=== PATIENT | female | born 1930 | race Caucasian/White ===

== ENCOUNTER 2016-05-15 10:54 | Inpatient (IN) | payer OTHER, MEDICARE ==
[~2016-05-15] VITALS: Ht 149.9 cm; Wt 54.4 kg
--- NOTE | 2016-05-15 11:05 | NUR ---
PT JESU FROM HOME STATES SHE WENT OUT TO LUNCH ON TUESDAY AND 45 MINUTES LATER WAS VOMITING AT HOME. PT STATES SINCE THEN SHE HAS BEEN GETTING WEAKER AND THIS MORNING SHE WOKE UP WITH RIGHT ARM PAIN AND LEFT LEG PAIN, PT DENIES INJURY
--- NOTE | 2016-05-15 11:17 | ED GI/GU/ABDOMINAL COMPLAINT ---
History of Present Illness General Chief Complaint: Nausea, Vomiting, Diarrhea Stated Complaint: NV Source: patient, family, old records Exam Limitations: no limitations Vital Signs & Intake/Output Vital Signs & Intake/Output Vital Signs Date Time Temp Pulse Resp B/P Pulse O2 O2 Flow FiO2 Ox Delivery Rate 05/15 1647 99.7 88 20 137/55 05/15 1631 99.7 84 22 126/62 96 Room Air 05/15 1438 100.3 05/15 1437 85 18 112/55 96 05/15 1215 99.6 68 20 124/60 96 Room Air 05/15 1057 99.6 80 18 111/55 95 Room Air Allergies Coded Allergies: amoxicillin (From AUGMENTIN) (UNKNOWN 05/15/16) clavulanic acid (From AUGMENTIN) (UNKNOWN 05/15/16) codeine (STOMACH CRAMPS 05/15/16) erythromycin base (STOMACH CRAMPS 05/15/16) hydrocodone (From VICODIN) (STOMACH CRAMPS 05/15/16) zolpidem (From AMBIEN) (HALLUCINATIONS 05/15/16) Reconcile Medications Aspirin (Ecotrin*) 81 MG TABLET.DR 1 TAB PO DAILY HEART HEALTH (Reported) Atenolol 25 MG TABLET 0.5 TAB PO TID HEART (Reported) Brimonidine Tartrate/Timolol (Combigan Eye Drops) 0.2 %-0.5 % DROPS 1 DROP OP BID EYE (Reported) Donepezil HCl 5 MG TABLET 1 TAB PO QPM DEMENTIA (Reported) Estradiol 0.5 MG TABLET 1 TAB PO Tuesday HORMONE (Reported) Hydrochlorothiazide 25 MG TABLET 1 TAB PO DAILY WATER PILL (Reported) Multivitamin (Daily Multiple Vitamin) 1 EACH TABLET 1 TAB PO DAILY SUPPLEMENT (Reported) Potassium Chloride 10 MEQ TAB.ER.PRT 1 TAB PO DAILY SUPPLEMENT (Reported) Prednisolone Acetate 1 % DROPS.SUSP 1 GTT OPH QPM EYE (Reported) Simvastatin (Simvastatin*) 20 MG TABLET 1 TAB PO QPM CHOLESTEROL (Reported) Warfarin Sodium 2 MG TABLET 1 TAB PO 1700 BLOOD THINNER (Reported) Triage Note: PT JESU FROM HOME STATES SHE WENT OUT TO LUNCH ON TUESDAY AND 45 MINUTES LATER WAS VOMITING AT HOME. PT STATES SINCE THEN SHE HAS BEEN GETTING WEAKER AND THIS MORNING SHE WOKE UP WITH RIGHT ARM PAIN AND LEFT LEG PAIN, PT DENIES INJURY Triage Nurses Notes Reviewed? yes ? N Is pt currently ? No HPI: Patient states that she went to lunch with her friend on . Shortly after having lunch she was shopping when all of a sudden her hands began to ache. She noticed that both of her hands were white in color. The aching was constant for about 20 minutes. There is no radiation of the pain. There are no aggravating or mitigating factors. The aching in the whiteness both resolved and then she began vomiting. Patient states that she vomited multiple times between night and Tuesday morning. Patient denies any diarrhea. Patient states that since midmorning yesterday her whole body has began to really hurt. Patient states that she cannot move her right arm secondary to the pain. She is also having severe pain in the right elbow and the right hip and her low back and her left ankle. The pain is constant and is diffuse. The pain radiates throughout her entire body. The pain is 10 out of 10. Pain increases with movement. The pain is a throbbing pain. Patient denies any headache or chills. There is been no known trauma. Past History Travel History Traveled to [place] past 21 day No Medical History Any Pertinent Medical History? see below for history EENT: glaucoma Cardiovascular: hypertension, hyperlipidemia, VALVE REPLACEMENT Surgical History Surgical History: non-contributory Psychosocial History What is your primary language Syriac Tobacco Use: Quit >30 days ago ETOH Use: occasional use Illicit Drug Use: denies illicit drug use Family History Hx Contributory? No Review of Systems Review of Systems Constitutional: Reports: see HPI. EENTM: Reports: no symptoms. Respiratory: Reports: no symptoms. Cardiovascular: Reports: no symptoms. GI: Reports: no symptoms. Genitourinary: Reports: no symptoms. Musculoskeletal: Reports: see HPI, back pain, joint pain, muscle pain. Skin: Reports: no symptoms. Neurological/Psychological: Reports: no symptoms. Hematologic/Endocrine: Reports: no symptoms. Immunologic/Allergic: Reports: no symptoms. All Other Systems: Reviewed and Negative Physical Exam Physical Exam General Appearance: well developed/nourished, alert, awake, anxious, moderate distress Head: atraumatic, normal appearance Eyes: Bilateral: PERRL, EOMI. Ears, Nose, Throat, Mouth: hearing grossly normal, DRY MUCOSA Neck: normal inspection, supple, full range of motion Respiratory: normal breath sounds, chest non-tender, no respiratory distress, lungs clear Cardiovascular: regular rate/rhythm, normal peripheral pulses Gastrointestinal: normal bowel sounds, soft, non-tender, no organomegaly Back: normal inspection, normal range of motion Extremities: limited range of motion (SEC TO PAIN), REFLEXES 2+ Neurologic/Psych: awake, alert, oriented x 3, normal mood/affect Skin: intact, normal color, warm/dry Core Measures ACS in differential dx? No Severe Sepsis Present: No Septic Shock Present: No Progress Differential Diagnosis: AMI, UTI/pyelo, SEPSIS, VIRAL SYNDROME Plan of Care: Orders Procedure Date/time Status Regular Diet 05/16 B Active Patient Data 05/15 1709 Active EKG 05/15 1645 Active Saline Lock 05/15 1640 Active Misc Message 05/15 1640 Active ED Holding Orders 05/15 1640 Active Vital Signs 05/15 1640 Active Activity/Ambulation 05/15 1640 Active Code Status 05/15 1640 Active Admit to inpatient 05/15 1638 Active RAPID VIRAL INFLUENZA A 05/15 1637 Active BLOOD CULTURE 05/15 1355 Active URINALYSIS 05/15 1116 Complete TROPONIN LEVEL 05/15 1116 Complete COMPREHENSIVE METABOLIC PANEL 05/15 1116 Complete CREATINE PHOSPHOKINASE 05/15 1116 Complete CBC WITHOUT DIFFERENTIAL 05/15 1116 Complete Current Medications Sig/Lalo Start time Last Medication Dose Stop Time Status Admin Acetaminophen 650 MG ONCE ONE 05/15 1730 UNVr (Tylenol) 05/15 1731 Laboratory Tests 05/15/16 1310: Urine Color YEL, Urine Clarity CLEAR, Urine pH 6.5, Ur Specific [place] 1.010, Urine Protein 30 H, Urine Ketones NEG, Urine Nitrite NEG, Urine Bilirubin NEG, Urine Urobilinogen 0.2, Ur Leukocyte Esterase TRACE H, Ur Microscopic SEDIMENT EXAMINED, Urine RBC 15-25 H, Urine WBC 1-3 H, Ur Epithelial Cells RARE, Urine Mucus RARE, Urine Hemoglobin MOD H, Urine Glucose NEG 05/15/16 1133: Anion Gap 10, Estimated GFR 53 L, BUN/Creatinine Ratio 25.0, Glucose 114 H, Calcium 8.8, Total Bilirubin 0.8, AST 28, ALT 21, Alkaline Phosphatase 80, Creatine Kinase 23 L, Troponin I < 0.01, Total Protein 6.0 L, Albumin 3.4 L, Globulin 2.6, Albumin/Globulin Ratio 1.3, CBC w Diff MAN DIFF ORDERED, RBC 4.25, MCV 87.5, MCH 29.5, RDW 13.5, MPV 8.1, Gran % 92.0 H, Lymphocytes % 1.7 L, Monocytes % 6.3, Eosinophils % 0, Basophils % 0 L, Absolute Granulocytes 16.3 H, Absolute Lymphocytes 0.3 L, Absolute Monocytes 1.1 H, Absolute Eosinophils 0, Absolute Basophils 0, Normocytic RBCs VERIFIED, Normochromic RBCs VERIFIED, PUBS MCHC 33.7 Microbiology 05/15 1439 BLOOD: Blood Culture - RECD 05/15 1420 BLOOD: Blood Culture - RECD Diagnostic Imaging: Viewed by Me: Radiology Read. Discussed w/RAD: Radiology Read. Radiology Impression: PATIENT: BL ALVARADO PRESENT AGE: 85 PATIENT ACCOUNT NO: [id number] : 29 LOCATION: [facility] ORDERING PHYSICIAN: TRAN GIBBONS MD SERVICE DATE: 05/15/16 EXAM TYPE: RAD - XRY-ANKLE 3 OR MORE VIEWS L; XRY-ELBOW 3 OR MORE VIEWS, R; XRY-HIP 2-3 VIEWS, RIGHT; XRY-LUMBOSACRAL SPINE AP & LAT EXAMINATION: XR LUMBOSACRAL SPINE, XR ELBOW, RIGHT XR ANKLE, LEFT CLINICAL INFORMATION: Back pain, right hip pain, right elbow pain, left ankle pain COMPARISON: None. FINDINGS: Lumbar spine: Frontal and lateral views obtained There are 6 lumbar type vertebral bodies. 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 There is narrowing of all lumbar vertebral body levels in addition to associated degenerative changes including endplate sclerosis and small anterior bridging osteophytes. There is significant loss of intervertebral disc space at the L5-L6 level. The vertebral body heights are largely preserved. There is no significant associated spondylolisthesis. Elbow: 4 views of the right elbow are obtained. There is a small anterior joint effusion. No definite fracture or subluxation identified. There is no radiopaque foreign body. No lytic or sclerotic lesion. AP pelvis, 2 views right hip: The femoral heads are normally located within the acetabula. The joint space is preserved. There is minimal subchondral change along the acetabular roof. The sacroiliac joints are symmetric. The ilioischial and iliopectineal lines are preserved. Dedicated views of the right hip demonstrate an intact proximal femur without fracture or subluxation. Degenerative changes noted along the greater trochanter similar to the contralateral side. IMPRESSION: 1. 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 No acute fracture or subluxation. Diffuse moderate degenerative changes involving all levels of the lumbar spine. 2. Small right elbow joint effusion without identified fracture. Dedicated radiographs could be obtained if pain persists in 7-10 days. 3. No acute fracture involving the right hip. 4. Unremarkable pelvic radiograph. DICTATED BY : BELLA SIFUENTES MD DATE/TIME DICTATED:05/15/161351 [employer] SUPERVISOR:CARLA DATE/TIME TRANSCRIBED:05/15/161351 CONFIDENTIAL, DO NOT COPY WITHOUT APPROPRIATE AUTHORIZATION. <Electronically signed in Other Vendor System> SIGNED BY: BELLA SIFUENTES MD 05/15/16 1412, PATIENT: LB ALVARADO PRESENT AGE: 85 PATIENT ACCOUNT NO: [id number] : 29 LOCATION: [facility] ORDERING PHYSICIAN: TRAN GIBBONS MD SERVICE DATE: 05/15/16 EXAM TYPE: RAD - XRY-SHOULDER COMPLETE-RIGHT EXAMINATION: XR SHOULDER, RIGHT CLINICAL INFORMATION: Pain COMPARISON: None TECHNIQUE: 4 views. FINDINGS: There are 2 radiopaque anchors in the humeral head. Cephalad migration of the humeral head, raising concern for rotator cuff compromise. Moderate glenohumeral joint arthritis with joint space loss, inferior spurring. [id number]-rk-[id number] AC joint arthritis. No evidence of acute fracture or dislocation. IMPRESSION: Moderate glenohumeral and [id number] AC joint arthritis. Cephalad positioning of the humeral head raising concern for rotator cuff compromise. No radiographic evidence of acute fracture. DICTATED BY: JIAN MCKEON MD DATE/TIME DICTATED: 05/15/161341 [employer] SUPERVISOR:WHITE DATE/TIME TRANSCRIBED:05/15/161341 CONFIDENTIAL, DO NOT COPY WITHOUT APPROPRIATE AUTHORIZATION. <Electronically signed in Other Vendor System> SIGNED BY: JAIN MCKEON MD 05/15/16 1407 CXR Impression: PATIENT: LB ALVARADO PRESENT AGE: 85 PATIENT ACCOUNT NO: [id number] : 29 LOCATION: [facility] ORDERING PHYSICIAN: TRAN GIBBONS MD SERVICE DATE: 05/15/16 EXAM TYPE: RAD - XRY-CHEST XRAY, PA AND LATERAL EXAMINATION: XR CHEST CLINICAL INFORMATION: Pneumonia, shortness of breath. COMPARISON: None TECHNIQUE: PA and lateral views of the chest were obtained. FINDINGS: The heart is enlarged. Valvular replacements are noted. Sternotomy wires present. There is airspace opacity in the left lung base retrocardiac region, concerning for atelectasis or infiltrate. Suspect small left pleural effusion. No focal consolidation in the right lung. There is mild central vascular prominence without overt pulmonary edema. Degenerative changes in the spine. Partially imaged screws projected over the right humeral head, and possibly the left humeral head as well. IMPRESSION: Cardiomegaly. Left basilar opacity, consider atelectasis, pneumonia or sequela of aspiration. Suspected small left pleural effusion. Mild central vascular prominence. DICTATED BY: JIAN MCKEON MD DATE/TIME DICTATED:05/15/161335 [employer] SUPERVISOR:CARLA DATE/TIME TRANSCRIBED:05/15/161335 CONFIDENTIAL, DO NOT COPY WITHOUT APPROPRIATE AUTHORIZATION. <Electronically signed in Other Vendor System> SIGNED BY: LINDA DAWSON,JIAN 05/15/16 1346 Initial ED EKG: NSR, nonspecific ST T wave chg Comments: Patient given IV Toradol for pain control and she became confused for approximately 20 minutes. Patient was hallucinating and seeing bugs flying around the room. All symptoms resolved quickly. Patient unable to ambulate even with max assist and a walker. Departure Departure Disposition: STILL A PATIENT Condition: Guarded Clinical Impression Primary Impression: Leukocytosis Secondary Impressions: Myalgia Departure Forms: Customer Survey General Discharge Information Admission Note Spoke With: BECKY DAWSON,[facility] Documentation of Exam: Documentation of any treatments & extenuating circumstances including Concerns Regarding Discharge (functional status, medication knowledge or non-compliance, living conditions, etc.) that warrant an admission rather than observation: [ Patient has a low-grade temperature and leukocytosis 17,000 with a left shift. Cultures have been obtained. Influenza swab has been sent. Patient will require IV fluids. Patient is also having diffuse myalgias and unable to ambulate. Patient will need physical therapy evaluation.]
--- NOTE | 2016-05-15 11:37 | NUR ---
IV INITIATED, LABS DRAWN AND SENT. NS INFUSING
[2016-05-15 11:52] LABS: ABSOLUTE BASOPHIL COUNT 0 /CUMM (0.0-0.2); ABSOLUTE EOSINOPHIL COUNT 0 /CUMM (0.0-0.7); ABSOLUTE GRANULOCYTE CT 16.3 /CUMM (1.4-6.5); ABSOLUTE LYMPH COUNT 0.3 /CUMM (1.2-3.4); ABSOLUTE MONOCYTE COUNT 1.1 /CUMM (0.10-0.60); BASOPHIL % 0 % (0.0-2.0); EOSINOPHIL % 0 % (0-5); HEMATOCRIT 37.2 % (37-47); MEAN CORPUSCULAR HGB 29.5 PG (27.0-31.0); MEAN CORPUSCULAR HGB CONC 33.7 G/DL (33.0-37.0); MEAN CORPUSCULAR VOLUME 87.5 FL (81.0-99.0); MEAN PLATELET VOLUME 8.1 FL (7.4-10.4); PLATELET COUNT 143 /CUMM (130-400); RBC DISTRIBUTION WIDTH 13.5 % (11.5-14.5); RED BLOOD CELL CT 4.25 /CUMM (4.20-5.40); WHITE BLOOD CELL COUNT 17.8 /CUMM (4.8-10.8)
--- NOTE | 2016-05-15 12:30 | NUR ---
PT TO XRAY
--- NOTE | 2016-05-15 13:12 | NUR ---
PT ASSISTED TO BEDSIDE COMMODE WITH ASSIST OF 2. URINE SPECIMEN SENT TO LAB
--- NOTE | 2016-05-15 13:30 | NUR ---
PREVIOUS NOTE WRITTEN BY THIS RN
--- NOTE | 2016-05-15 13:48 | RADIOLOGY REPORT ---
EXAMINATION: XR CHEST CLINICAL INFORMATION: Pneumonia, shortness of breath. COMPARISON: None TECHNIQUE: PA and lateral views of the chest were obtained. FINDINGS: The heart is enlarged. Valvular replacements are noted. Sternotomy wires present. There is airspace opacity in the left lung base retrocardiac region, concerning for atelectasis or infiltrate. Suspect small left pleural effusion. No focal consolidation in the right lung. There is mild central vascular prominence without overt pulmonary edema. Degenerative changes in the spine. Partially imaged screws projected over the right humeral head, and possibly the left humeral head as well. IMPRESSION: Cardiomegaly. Left basilar opacity, consider atelectasis, pneumonia or sequela of aspiration. Suspected small left pleural effusion. Mild central vascular prominence.
--- NOTE | 2016-05-15 14:07 | RADIOLOGY REPORT ---
EXAMINATION: XR SHOULDER, RIGHT CLINICAL INFORMATION: Pain COMPARISON: None TECHNIQUE: 4 views. FINDINGS: There are 2 radiopaque anchors in the humeral head. Cephalad migration of the humeral head, raising concern for rotator cuff compromise. Moderate glenohumeral joint arthritis with joint space loss, inferior spurring. Fzbb-ej-xfuuuwjr AC joint arthritis. No evidence of acute fracture or dislocation. IMPRESSION: Moderate glenohumeral and brgr-kr-wasfkbgc AC joint arthritis. Cephalad positioning of the humeral head raising concern for rotator cuff compromise. No radiographic evidence of acute fracture.
--- NOTE | 2016-05-15 14:12 | RADIOLOGY REPORT ---
EXAMINATION: XR LUMBOSACRAL SPINE, XR ELBOW, RIGHT XR ANKLE, LEFT CLINICAL INFORMATION: Back pain, right hip pain, right elbow pain, left ankle pain COMPARISON: None. FINDINGS: Lumbar spine: Frontal and lateral views obtained There are 6 lumbar type vertebral bodies. 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 There is narrowing of all lumbar vertebral body levels in addition to associated degenerative changes including endplate sclerosis and small anterior bridging osteophytes. There is significant loss of intervertebral disc space at the L5-L6 level. The vertebral body heights are largely preserved. There is no significant associated spondylolisthesis. Elbow: 4 views of the right elbow are obtained. There is a small anterior joint effusion. No definite fracture or subluxation identified. There is no radiopaque foreign body. No lytic or sclerotic lesion. AP pelvis, 2 views right hip: The femoral heads are normally located within the acetabula. The joint space is preserved. There is minimal subchondral change along the acetabular roof. The sacroiliac joints are symmetric. The ilioischial and iliopectineal lines are preserved. Dedicated views of the right hip demonstrate an intact proximal femur without fracture or subluxation. Degenerative changes noted along the greater trochanter similar to the contralateral side. IMPRESSION: 1. 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 No acute fracture or subluxation. Diffuse moderate degenerative changes involving all levels of the lumbar spine. 2. Small right elbow joint effusion without identified fracture. Dedicated radiographs could be obtained if pain persists in 7-10 days. 3. No acute fracture involving the right hip. 4. Unremarkable pelvic radiograph.
--- NOTE | 2016-05-15 14:25 | NUR ---
BC X 2 DRAWN AND SENT BY ELSA MST
[2016-05-15] MEDS ORDERED: POTASSIUM CHLO10 ME5 PO (14:26)
[2016-05-15] MEDS ORDERED: HYDROCHLOROTHIA25 M1 PO (14:26)
[2016-05-15] MEDS ORDERED: ASPIRIN EC81 M1 PO (14:27)
[2016-05-15] MEDS ORDERED: WARFARIN SODIUM2 M1 PO (14:28)
[2016-05-15] MEDS ORDERED: SIMVASTATIN20 M2 PO (14:28)
[2016-05-15] MEDS ORDERED: COMBIGAN EYE DRO5 ML OP (14:29)
[2016-05-15] MEDS ORDERED: PREDNISOLONE ACE5 ML OPH (14:29)
[2016-05-15] MEDS ORDERED: DAILY MULTIPLE1 EACH PO (14:29)
[2016-05-15] MEDS ORDERED: DONEPEZIL HCL5 MG PO (14:30)
[2016-05-15] MEDS ORDERED: ATENOLOL25 M1 PO (14:30)
[2016-05-15] MEDS ORDERED: ESTRADIOL0.5 M1 PO (14:31)
--- NOTE | 2016-05-15 14:41 | NUR ---
PT ASSISTED ONTO COMMODE BY ELSA PATEL
--- NOTE | 2016-05-15 14:58 | NUR ---
REPORT TO LAURA ALAMO
--- NOTE | 2016-05-15 15:43 | NUR ---
DIRECTED BY ER MD TO ATTEMPT AMBULATE UPON EVAL OF PATIENT FOUND FOLLOWING; PATIENT REPORTS HAVING HALLUCINATIONS "SEEING PEOPLE " REPORTS STILL HAVING PAIN ,DISCOMFORT IN VARIOUS AREAS OF BODY FAMILY MEMBERS FEEL PATIENT UNABLE TO GO HOME FINDINGS REPORTED TO
--- NOTE | 2016-05-15 16:07 | NUR ---
RE-EVAL BY RONAN DAWSON
--- NOTE | 2016-05-15 16:27 | NUR ---
ATTEMPTED TO AMBULATE PAITEINT W/ WALKER PATIENT REPORTS UNABLE TO BEAR WEIGHT OR STAND ON LEFT ANKEL OSVS LYING HR 82 RR 20 B/P 125/60 SITTING HR 88 RR 22 B/P 137/55
--- NOTE | 2016-05-15 17:46 | NUR ---
FLU SWAB OBTAINED PATIENT C/O FEVRE CHILLS INCONTINENT OF BOWELS TEMP 101.5 GIVEN TYLENOL 650 MG PO
--- NOTE | 2016-05-15 18:08 | NUR ---
PATIENT BEING EVAL BY HOUSE STAFF REMAINS FEBRILE
--- NOTE | 2016-05-15 18:19 | NUR ---
PT GOING TO ROOM 217-1.
--- NOTE | 2016-05-15 18:27 | History & Physical ---
KANIKA ARCINIEGA 05/15/16 1826: General Information and HPI MD Statement: I have seen and personally examined LB POE and documented this H&P. The patient is a 85 year old F who presented with a patient stated chief complaint of nausea and vomiting. Source of Information: patient Exam Limitations: no limitations History of Present Illness: Ms Poe is an active woman, who was known to be in her usual state of health until 2 days ago. She has a past medical history of hypertension, rheumatic heart disease, mitral and aortic valve replacements. She was brought to [facility] with a chief concern of vomiting, and pain in her right upper extremity and left lower extremity x 1 days ago. As per the patient, she had 2 episodes of vomiting (with no blood), approximately an hour after her lunch at a restaurant 1 days ago. He also reports 1 episode of loose stools, nonbloody, not associated with any pain. She felt weak after vomiting, and remained in bed for the whole evening. She did not have any abdominal pain, difficulty urination. Following morning, she complained of fever(temperature was not recorded); pain in her right elbow region and left ankle, severity 6/10, relieved upon rest, with no radiation. No lightheadedness, chest pain, shortness of breath or palpitations. Sees Dr. Suresh (PCP)-[place] and Dr. Sheth ([phone]) Records of the recent echocardiogram are not available. Allergies/Medications Allergies: Coded Allergies: amoxicillin (From AUGMENTIN) (UNKNOWN 05/15/16) clavulanic acid (From AUGMENTIN) (UNKNOWN 05/15/16) codeine (STOMACH CRAMPS 05/15/16) erythromycin base (STOMACH CRAMPS 05/15/16) hydrocodone (From VICODIN) (STOMACH CRAMPS 05/15/16) zolpidem (From AMBIEN) (HALLUCINATIONS 05/15/16) Home Med list Aspirin (Ecotrin*) 81 MG TABLET. 1 TAB PO DAILY HEART HEALTH (Reported) Atenolol 25 MG TABLET 0.5 TAB PO TID HEART (Reported) Brimonidine Tartrate/Timolol (Combigan Eye Drops) 0.2 %-0.5 % DROPS 1 DROP OP BID EYE (Reported) Donepezil HCl 5 MG TABLET 1 TAB PO QPM DEMENTIA (Reported) Estradiol 0.5 MG TABLET 1 TAB PO Tuesday HORMONE (Reported) Hydrochlorothiazide 25 MG TABLET 1 TAB PO DAILY WATER PILL (Reported) Multivitamin (Daily Multiple Vitamin) 1 EACH TABLET 1 TAB PO DAILY SUPPLEMENT (Reported) Potassium Chloride 10 MEQ TAB.ER.PRT 1 TAB PO DAILY SUPPLEMENT (Reported) Prednisolone Acetate 1 % DROPS.SUSP 1 GTT OPH QPM EYE (Reported) Simvastatin (Simvastatin*) 20 MG TABLET 1 TAB PO QPM CHOLESTEROL (Reported) Warfarin Sodium 2 MG TABLET 1 TAB PO 1700 BLOOD THINNER (Reported) Past History Travel History Traveled to [place] past 21 day No Medical History EENT: glaucoma Cardiovascular: hypertension, hyperlipidemia, Mitral valve replacement Aortic valve replacement, Rheumatic heart disease Cancer(s): BASIL CELL CARCINOMA Surgical History Surgical History: non-contributory Past Family/Social History Family History Relations & Conditions if any Relation not specified for: *No pertinent family history Psychosocial History ETOH Use: occasional use Illicit Drug Use: denies illicit drug use Review of Systems Review of Systems Constitutional: Reports: fever, malaise, weakness. Denies: chills, unexplained weight loss. EENTM: Denies: visual changes. Cardiovascular: Denies: chest pain, edema, orthopena, palpitations. Respiratory: Denies: cough, short of breath. GI: Reports: diarrhea, nausea, vomiting. Genitourinary: Denies: dysuria, hesitation. Musculoskeletal: Denies: joint pain. Skin: Denies: change in skin color. Neurological/Psychological: Denies: anxiety. Hematologic/Endocrine: Denies: bruising. Exam & Diagnostic Data Last 24 Hrs of Vital Signs/I&O Vital Signs Date Time Temp Pulse Resp B/P Pulse O2 O2 Flow FiO2 Ox Delivery Rate 05/15 192 99.8 96 18 102/52 94 Room Air 05/15 1827 100.2 96 18 114/56 95 Room Air 05/15 1808 101.3 05/15 1747 101.5 05/15 1647 99.7 88 20 137/55 05/15 1631 99.7 84 22 126/62 96 Room Air 05/15 1438 100.3 05/15 1437 85 18 112/55 96 05/15 1215 99.6 68 20 124/60 96 Room Air 05/15 1057 99.6 80 18 111/55 95 Room Air Intake & Output 05/15 1600 05/15 0800 05/15 0000 Intake Total 1000 Output Total 300 Balance 700 Intake, IV 1000 Output, Urine 300 Patient 126 lb Weight Physical Exam General Appearance Alert, Oriented X3, Cooperative, No Acute Distress Skin No Breakdown HEENT PERRLA, EOMI Neck No JVD, No thryomegaly Lymphatic Cervical nl Cardiovascular Normal S1, Normal S2, systolic murmur radiating to the axilla Lungs Normal Air Movement Abdomen Normal Bowel Sounds, Soft, No Tenderness Neurological Normal Speech, Strength at 5/5 X4 Ext, Normal Tone, Sensation Intact, Cranial Nerves 3-12 NL, Reflexes 2+ Extremities No Cyanosis, No Edema, Normal Pulses Vascular Pulses Symmetrical Body Front and Back (Adult) 1) ankle swelling 2) tenderness 3) corneal transplant irideal deformity Last 24 Hrs of Labs/Cameron: Laboratory Tests 05/15/16 2014: PT 15.2 H, INR 1.45 H 05/15/16 1310: Urine Color YEL, Urine Clarity CLEAR, Urine pH 6.5, Ur Specific [place] 1.010, Urine Protein 30 H, Urine Ketones NEG, Urine Nitrite NEG, Urine Bilirubin NEG, Urine Urobilinogen 0.2, Ur Leukocyte Esterase TRACE H, Ur Microscopic SEDIMENT EXAMINED, Urine RBC 15-25 H, Urine WBC 1-3 H, Ur Epithelial Cells RARE, Urine Mucus RARE, Urine Hemoglobin MOD H, Urine Glucose NEG 05/15/16 1133: Anion Gap 10, Estimated GFR 53 L, BUN/Creatinine Ratio 25.0, Glucose 114 H, Calcium 8.8, Phosphorus 2.7, Magnesium 1.9, Total Bilirubin 0.8, AST 28, ALT 21, Alkaline Phosphatase 80, Creatine Kinase 23 L, Troponin I < 0.01, Total Protein 6.0 L, Albumin 3.4 L, Globulin 2.6, Albumin/Globulin Ratio 1.3, Amylase < 30 L, Lipase 25, 25-OH Vitamin D Total 14.7 L, TSH 0.672, Thyroxine (T4) 7.2, Thyroxine Binding Indx 35.4, CBC w Diff MAN DIFF ORDERED, RBC 4.25, MCV 87.5, MCH 29.5, RDW 13.5, MPV 8.1, Gran % 92.0 H, Lymphocytes % 1.7 L, Monocytes % 6.3, Eosinophils % 0, Basophils % 0 L, Absolute Granulocytes 16.3 H, Absolute Lymphocytes 0.3 L, Absolute Monocytes 1.1 H, Absolute Eosinophils 0, Absolute Basophils 0, Normocytic RBCs VERIFIED, Normochromic RBCs VERIFIED, PUBS MCHC 33.7 Microbiology 05/15 2100 URINE ROUT: Urine Culture - RECD 05/15 1439 BLOOD: Blood Culture - RECD 05/15 1420 BLOOD: Blood Culture - RECD Diagnostic Data EKG Results Heart rate 90, QTc 504 Other Results RAD - XRY-ANKLE 3 OR MORE VIEWS L; XRY-ELBOW 3 OR MORE VIEWS, R; XRY-HIP 2-3 VIEWS, RIGHT; XRY-LUMBOSACRAL SPINE AP & LAT 1. 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 No acute fracture or subluxation. Diffuse moderate degenerative changes involving all levels of the lumbar spine. 2. Small right elbow joint effusion without identified fracture. Dedicated radiographs could be obtained if pain persists in 7-10 days. 3. No acute fracture involving the right hip. 4. Unremarkable pelvic radiograph. Assessment/Plan Assessment: She is an older lady with a past medical history of valve replacement, hypertension is being evaluated for vomiting, diarrhea and pain in multiple joints. At the time of admission, vitals 99.6 (Tmax 101.5), pulse rate 80, respiratory rate 18, blood pressure 111/55, 96% on room air. Lab findings indicated- leukocytosis WBC 17.8.(predominant neutrophilia-92% indicating an acute infection-machine count and not manual differential), hemoglobin 12.5, hematocrit 37.2, platelets 143, electrolytes-sodium 134, potassium 3.2 and chloride 96 (likely due to vomiting and diarrhea), BUN 25, serum creatinine 1.0, BUN/creatinine ratio-elevated (likely from dehydration), UA indicated protein 30 , minimal pyuria WBC 1-3 and trace urine leukocyte esterase positive, urine nitrite negative (no bacteriuria), elevated RBCs 15-25 with moderate hemoglobin. Radiological [id number] of lumbar spine indicated degenerative changes, small elbow joint effusion was seen. Hip joint did not have any fracture. EKG did not reveal any arrhythmias. Below is the problem list and plan: #1 fever, vomiting-appears viral at this point. Noro virus is the usual culprit. Loss of fluid O dehydration with increased BUN/creatinine ratio and loss of electrolytes. Start intravenous fluids normal saline with caution, as per records of her recent echocardiogram are unavailable at this time. Tigan for symptomatic relief. Viral infection leading to dehydration might have resulted in an acute gouty attack. Symptomatic at this time. And, monitor fever closely. Check CBC in the a.m. Replete potassium. Ultrasound abdomen. Meets sirs criteria, with possible source of infection-check lactate. #2 joint pains-could be incidental or associated with viral illness. Check uric acid. Patient has a history of valve replacement (nature of valve material unavailable at this time). Infective endocarditis although not likely in this case need to be ruled out-age group, urinalysis finding with no pyuria and hematuria. Follow-up on blood cultures and urine cultures. Strep and staph are in the differential, empirically. Echocardiogram. Obtain records from the door to door [facility]. Check ESR, CRP. #3 due to prophylaxis-Alps As Ranked By This Provider Problem List: 1. Myalgia 2. Leukocytosis Core Measures/Miscellaneous Acute Coronary Syndrome ACS Diagnosis: No Cerebrovascular Accident CVA/TIA Diagnosis: No Congestive Heart Failure CHF Diagnosis: No Venous Thromboembolism VTE Risk Factors: Acute medical illness, Age > 40 VTE Prophylaxis Ordered Inpt: Mechanical (ALPS/TEDS) No Mech VTE prophylaxis d/t: No contraindications No VTE Pharm Prophylaxis d/t: No contraindications VTE Diagnosis: No VTE Type: NONE VTE Confirmed by (Test): NONE Severe Sepsis Severe Sepsis Present: No Septic Shock Septic Shock Present: No Miscellaneous Documentation Attending Case Discussed With: MARS GRULLON MD Primary Care Physician: NATE DAWSON,MJ CHAUDHARI Patient sees these Specialists Dr. Sheth Level of Patient Care: General Medicine TIN MCARTHUR MD 05/16/16 0023: Resident Review Statement Resident Statement: examined this patient, discussed with chief internal auditor, agreed with chief internal auditor Other Findings: Ms Underwood is a 85 YO F with PMH of HTN, HLD, glaucoma, dementia, rheumatic fever with resultant aortic and mitral valve replacement 2 years ago on coumadin who presents with 2 day history of N/V, fever, diffuse myalgia, pain in the RT elbow and Lt ankle. Symptoms started about 40mins after lunch in a restaurant with friends where she at [facility]. She remembers the food was well cooked near the [place] although she has no recollection of a tick or mosquiti bites. She denies trauma or fall, hx of gout, URI or UTI symptoms but her history may not be reliable due to her dementia. In the ER she was found to have leukocytosis, positive UA, and was unable to bear weight on her ankle. No obvious fracturees on xray, except a small effusion in the Rt elbow. CXR-Cardiomegaly. Left basilar opacity, consider atelectasis, pneumonia or sequela of aspiration. Suspected small left pleural effusion. Mild central vascular prominence Influenza A-negative Assessment 1. Myalgias, gastroenteritis and leukocytosis; possibly of viral Etiology 2. Possible UTI vs Colonization Plan Admit to Gen Med IVF hydration Blood and Urine cultures Repeat Labs in am Daily INR and dose coumadin as needed-Goal 2.5-3.5 due to Mech Valve (she takes Coumadin 2.5mg dly except sundays when she takes 5mg) Give Tigan for Nausea-she has elevated QTC Hold HTNsive meds for now Vitals Q shift Watch off antibiotics today and reasses in am Doppler US of Lt LE to r/o DVT Complete Abd US-r/o pyelonephritis or other intraabdominal process Full Liquid diet and advance as tolerated due to N/V DVT ppx-Alps and Coumadin MARS GRULLON 05/15/16 0107: Attending MD Review Statement Attending Statement Attending MD Statement: examined this patient, discuss w/resident/PA/FURNACE ATTENDANT, agreed w/resident/PA/FURNACE ATTENDANT, discussed with family, reviewed EMR data (avail), reviewed images, amended to note Attending Assessment/Plan: CC : malaise, multiple joint pain PMH : HTN, HLD, mitral and aortic valve replacement on Warfarin Patient presented in ER with several episodes of vomiting followed by generalized malaise and joint pains. Mainly pain was in the right arm, right hip , left ankle. By the time I saw patient, she was feeling much better, not in significant pain. Patient did not have any fever, chills, urinary symptoms, diarrhea, blood in vomiting, LOC at home she endorses some decreased by mouth intake. Vitals: T max 101.3 after coming to ER, HR, RR, BP, O2 saturation in acceptable range. On exam: A O 3, no distress, mildly anxious, neck supple, mucosa dry, no lymphadenopathy. CVS: S1-S2, systolic murmur and parasternal area, RS: Clear air entry bilaterally present. Abdomen: Soft, NT, ND, Walker's sign negative, no CVA tenderness, bowel sounds present. No obvious skin rashes or inflammation, no obvious decreased motion in any of the joints. No focal neurological deficit. Labs: WBC 17.8, neutrophils 92%, hemoglobin 12.5, potassium 3.2, anion gap 10, CK 23, otherwise CBC, BMP, LFT unremarkable. UA positive for leukocyte esterase. X-ray shoulder, x-ray lumbar spine, x-ray hip, x-ray elbow, x-ray ankle, x-ray chest was obtained: Moderate glenohumeral and [id number] AC joint arthrit is. 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 No acute fracture or subluxation. Diffuse moderate degenerative changes involving all levels of the lumbar spine. Small right elbow joint effusion without identified fracture. Dedicated radiographs could be obtained if pain persists in 7-10 days. No acute fracture involving the right hip. Unremarkable pelvic radiograph. Cardiomegaly. Left basilar opacity, consider atelectasis, pneumonia or sequela of aspiration. Suspected small left pleural effusion. A&P #1 recurrent vomiting and malaise: Can be secondary to viral gastroenteritis, patient feels better after IV hydration, continue NS at 75 -100 mL per hour, conservative management, check magnesium, phosphorus, flu test, lipase, complete abdominal ultrasound to rule out gallbladder and renal pathology. Replace potassium #2 multiple joint pains: X-ray did not show any significant findings, arthralgias can be secondary to dehydration. Pain management, conservative treatment. #3 patient has significant leukocytosis: This can be reactive, patient has leukocyte estrace and UA but she does not have urinary complaints, obtain blood culture, urine culture, Hold off antibiotics for now. His patient spikes fever again at that time, I suggest to start ceftriaxone. #4 HTN: Hold her home medications, given severe dehydration #5 check INR as patient is on warfarin for valve replacement, dose accordingly. #6 patient had an episode of delirium in ER after a dose of Toradol, patient is on donepezil, unclear history of dementia. Watch for hospital-acquired delirium.
--- NOTE | 2016-05-15 18:46 | NUR ---
REPORT GIVEN TO FLOOR
[2016-05-15 19:25] VITALS: BP 102/52
[2016-05-15 20:56] LABS: PT 15.2 SEC (9.4-12.5)
[2016-05-15 23:53] VITALS: BP 104/52
--- NOTE | 2016-05-16 01:10 | Admission Certification ---
Admission Certification Certification Statement - As attending physician, I certify that at the time of - admission, based on clinical presentation, severity of - symptoms, need for further diagnostic testing and - therapeutic interventions, and risk of adverse outcomes - without in-hospital treatment, in my clinical assessment, - this patient requires an acute hospital stay for a minimum - of two nights or longer. I have also considered psychsocial - factors such as support system, advanced age, financial - issues, cognitive issues, and failed out-patient treatments, - past re-admission history, safety of patient, and lack of - compliance as applicable. Specific rationale supporting this admission is: Severe dehydration, viral gastroenteritis, myalgia, arthralgia
[2016-05-16 03:04] VITALS: BP 160/94
[2016-05-16 03:09] VITALS: BP 137/81
--- NOTE | 2016-05-16 03:15 | NUR ---
PT C/O OF 1 EPISODE OF DIARRHEA. PT ASKED MULTIPLE TIMES IF SHE COULD GET SOMETHING TO HELP HER STOP THE DIARRHEA. PT STARTED HAVING CHILLS AND BEGAN GETTING ANXIOUS. PT HAD 1 EPISODE OF DRY HEAVING. MD MADE AWARE. FULL SET OF VITALS DONE. BP 137/81, HR 110, TEMP 97.7, RR 21, O2 SAT 95% ON RA. MD MADE AWARE AND MEDICATIONS ORDERED. WILL CONTINUE TO MONITOR.
--- NOTE | 2016-05-16 06:54 | PN- Housestaff ---
KANIKA ARCINIEGA 05/16/16 0653: Subjective Follow-up For: 1. vomiting, nausea Subjective: She was comforable this am. She was nauseous overnight. Remained afebrile overnight. VItals were stable. Review of Systems Constitutional: Reports: see HPI. Objective Last 24 Hrs of Vital Signs/I&O Vital Signs Date Time Temp Pulse Resp B/P Pulse O2 O2 Flow FiO2 Ox Delivery Rate 05/16 0309 137/81 05/16 0304 97.7 110 21 160/94 95 Room Air 05/16 0010 104/52 05/15 2353 98.4 92 20 104/52 96 05/15 1925 99.8 96 18 102/52 94 Room Air 05/15 1827 100.2 96 18 114/56 95 Room Air 05/15 1808 101.3 05/15 1747 101.5 05/15 1647 99.7 88 20 137/55 05/15 1631 99.7 84 22 126/62 96 Room Air 05/15 1438 100.3 05/15 1437 85 18 112/55 96 05/15 1215 99.6 68 20 124/60 96 Room Air 05/15 1057 99.6 80 18 111/55 95 Room Air Intake & Output 05/16 0800 05/16 0000 05/15 1600 Intake Total 334 478 6373 Output Total 150 300 Balance 720 5 700 Intake, IV 640 53 9446 Intake, Oral 120 80 Number 3 Bowel Movements Output, Urine 150 300 Patient 125 lb 126 lb Weight Physical Exam General Appearance: No Acute Distress Other Physical Findings: General Exam: AAOx3, No acute distress, Skin: No rashes, no breakdown HEENT: PERRLA, EOMI Neck: Supple, No JVD No cervical lymphadenopathy CVS: Reg Rate, Normal S1,S2, No MGR Resp: Normal air entry, no ronchi/rales Abdomen: Soft, tenderness -ve, Normal Bowel Sounds Neuro: Normal Speech, Strength 5/5 b/l x 4 extremities, Sensation intact, CN III -XII NL, Reflexes 2+ Extremities: No cyanosis, pedal edema, tenderness in ankle joint, limited mobility of right shoulder and right elbow. Current Medications: Current Medications Sig/Lalo Start time Last Medication Dose Route Stop Time Status Admin Acetaminophen 650 MG Q6P PRN 05/15 1815 AC PO Acetaminophen 650 MG ONCE ONE 05/15 1730 DC 05/15 PO 05/15 1731 1747 Acetaminophen 0 .STK-MED ONE 05/15 1723 DC PO Aspirin Buffered 81 MG DAILY 05/16 1000 AC PO Atenolol 12.5 MG TID 05/15 220 AC PO Atorvastatin Calcium 10 MG 1700 05/16 1700 AC PO Bromocriptine 2.5 MG BID 05/15 2200 DC Mesylate PO Donepezil HCl 5 MG QPM 05/15 2200 AC 05/16 PO 0005 Heparin Sodium 5,000 UNIT Q8 05/15 2200 CAN (Porcine) SC Ketorolac 15 MG ONCE ONE 05/15 1430 DC 05/15 Tromethamine IV 05/15 1431 1430 Ketorolac 0 .STK-MED ONE 05/15 1429 DC Tromethamine .ROUTE Melatonin 5 MG ONCE ONE 05/16 0300 DC PO 05/16 0301 Metoprolol Tartrate 0 .STK-MED ONE 05/15 1639 DC PO Metoprolol Tartrate 12.5 MG ONCE ONE 05/15 1615 DC 05/15 PO 05/15 1616 1647 Pantoprazole Sodium 40 MG ONCE ONE 05/16 0315 DC 05/16 IV 05/16 0316 0436 Patient Medication 1 UNIT ONE NR 05/15 2100 DC Teaching ED 05/15 2130 Potassium Chloride 40 MEQ ONCE ONE 05/15 2200 DC 05/15 PO 05/15 220 2108 Potassium Chloride 40 MEQ ONCE ONE 05/15 1830 DC PO 05/15 1831 Prednisolone 1 GTT QPM 05/15 2200 AC 05/16 OPH 0006 Sodium Chloride 1,000 ML .[id number] 05/15 1815 AC 05/15 IV 2108 Sodium Chloride 1,000 ML BOLUS ONE 05/15 1345 DC 05/15 IV 05/15 1444 1343 Sodium Chloride 1,000 ML BOLUS ONE 05/15 1115 DC 05/15 IV 05/15 1214 1136 Timolol Maleate 1 GTT BID 05/15 220 AC 05/15 OPH 2107 Trimethobenzamide HCl 200 MG TID PRN 05/16 0315 AC 05/16 IM 0341 Trimethobenzamide HCl 200 MG TID PRN 05/15 1900 DC IM Last 24 Hrs of Lab/Cameron Results Last 24 Hrs of Labs/Mics: Laboratory Tests 05/15/16 2014: PT 15.2 H, INR 1.45 H 05/15/16 1310: Urine Color YEL, Urine Clarity CLEAR, Urine pH 6.5, Ur Specific [place] 1.010, Urine Protein 30 H, Urine Ketones NEG, Urine Nitrite NEG, Urine Bilirubin NEG, Urine Urobilinogen 0.2, Ur Leukocyte Esterase TRACE H, Ur Microscopic SEDIMENT EXAMINED, Urine RBC 15-25 H, Urine WBC 1-3 H, Ur Epithelial Cells RARE, Urine Mucus RARE, Urine Hemoglobin MOD H, Urine Glucose NEG 05/15/16 1133: Anion Gap 10, Estimated GFR 53 L, BUN/Creatinine Ratio 25.0, Glucose 114 H, Uric Acid 6.9 H, Calcium 8.8, Phosphorus 2.7, Magnesium 1.9, Total Bilirubin 0.8, AST 28, ALT 21, Alkaline Phosphatase 80, Creatine Kinase 23 L, Troponin I < 0.01, Total Protein 6.0 L, Albumin 3.4 L, Globulin 2.6, Albumin/Globulin Ratio 1.3, Amylase < 30 L, Lipase 25, 25-OH Vitamin D Total 14.7 L, TSH 0.672, Thyroxine (T4) 7.2, Thyroxine Binding Indx 35.4, CBC w Diff MAN DIFF ORDERED, RBC 4.25, MCV 87.5, MCH 29.5, RDW 13.5, MPV 8.1, Gran % 92.0 H, Lymphocytes % 1.7 L, Monocytes % 6.3, Eosinophils % 0, Basophils % 0 L, Absolute Granulocytes 16.3 H, Absolute Lymphocytes 0.3 L, Absolute Monocytes 1.1 H, Absolute Eosinophils 0, Absolute Basophils 0, Normocytic RBCs VERIFIED, Normochromic RBCs VERIFIED, PUBS MCHC 33.7, ESR Westergren 43 H, FROYLAN Titer Pending, Anti-Nuclear Antibody Pending Microbiology 05/15 2099 URINE ROUT: Legionella Antigen - RES 05/15 2099 URINE ROUT: Streptococcus pneumoniae Antigen (M - RES 05/15 2099 URINE ROUT: Urine Culture - RES 05/15 1439 BLOOD: Blood Culture - RECD 05/15 1420 BLOOD: Blood Culture - RECD Assessment/Plan Assessment: Ms Poe is an active woman who has a past medical history of hypertension, rheumatic heart disease, mitral and aortic valve replacements, and is being evaluted for vomiting, and pain in her right upper extremity and left lower extremity x 1 days ago. At the time of admission, vitals 99.6 (Tmax 101.5), pulse rate 80, respiratory rate 18, blood pressure 111/55, 96% on room air. Lab findings indicated- leukocytosis WBC 17.8.(predominant neutrophilia-92% indicating an acute infection-machine count and not manual differential), hemoglobin 12.5, hematocrit 37.2, platelets 143, electrolytes-sodium 134, potassium 3.2 and chloride 96 (likely due to vomiting and diarrhea), BUN 25, serum creatinine 1.0, BUN/creatinine ratio-elevated (likely from dehydration), UA indicated protein 30 , minimal pyuria WBC 1-3 and trace urine leukocyte esterase positive, urine nitrite negative (no bacteriuria), elevated RBCs 15-25 with moderate hemoglobin. BC x 2- GPC in chains and clusters 05/17/16. Radiological [id number] of lumbar spine indicated degenerative changes, small elbow joint effusion was seen. Hip joint did not have any fracture. EKG did not reveal any arrhythmias. Below is the problem list and plan: #1 fever, vomiting-Continue intravenous fluids normal saline with caution, as per records of her recent echocardiogram are unavailable at this time. Tigan for symptomatic relief. And, monitor fever closely. Check CBC in the a.m. Replete potassium. Ultrasound abdomen reveals ascitic fluid. May consider CT scan abdomen in the am. Lactate 1.9 #2 joint pains- Patient has a history of valve replacement (nature of valve material unavailable at this time, likely prostetic- dose coumadin to keep it in between 2.5-3.). Infective endocarditis is a likely dignosis in this pt-age group, urinalysis finding with no pyuria and hematuria(kidney involement), and ? septic joints. Strep and staph are in the differential, empirically. Start vancomycin pending cultures. Echocardiogram. Obtain records from the research professor of biostatistics. #3 due to prophylaxis-Alps Problem List: 1. Myalgia Pain Ratin Pain Location: left shoulder Pain Goal: Pain 4 or less Pain Plan: tylenol Tomorrow's Labs & Rationales: cbc bep inr GODWIN SHEETS MD 05/16/16 1601: Attending MD Review Statement Attending Statement Attending MD Statement: examined this patient, discuss w/resident/PA/DIRECTOR OF FOOD AND NUTRITION, agreed w/resident/PA/DIRECTOR OF FOOD AND NUTRITION, reviewed EMR data (avail) Attending Assessment/Plan: 85F PMH HTN, rheumatic heart disease s/p AVR and MVR admitted with right shoulder and left ankle pain, nausea, vomiting, malaise, and generalized weakness. Found to have positive blood cultures this morning with gram positive cocci. No recent dental surgery, no trauma, no rash. Denies chest pain, palpitations, SOB, abdominal pain, dysuria. Febrile to 101.3, WBC 18,000, K 3.2 , ESR 43. Mild tenderness to right elbow with mild effusion, shoulder not tender, mild tenderness to left ankle. Imaging shows effusion in right elbow and left ankle without fracture. Plan - Start Vancomycin - Follow blood cultures, repeat if febrile - Follow ID and orthopedic recommendations - Obtain TTE, if negative obtain TREVOR - Continue home medications - Stop Coumadin in case arthrocentesis is required. Start Lovenox
[2016-05-16 08:13] VITALS: BP 150/72
[2016-05-16 08:56] LABS: PT 14.2 SEC (9.4-12.5)
--- NOTE | 2016-05-16 09:58 | Cons- Infect Disease ---
General Information and HPI Consulting Request Date of Consult: 05/16/16 Requested By: MARS GRULLON MD Reason for Consult: Positive blood cultures for gram-positive cocci in pairs and chains Source of Information: patient History of Present Illness: This is an 85-year-old woman status post mitral and aortic valve replacements 2 years prior to admission for rheumatic heart disease, maintained on Coumadin, admitted on May 15 with several days of generalized weakness and right elbow and left ankle pain, with no trauma, following an episode of vomiting, with no documented fevers. On admission she was initially afebrile but, after several hours, spiked to 101.5. Laboratory data revealed a white blood cell count of 18 ,000, BUN/creatinine 25 and 1.0, potassium 3.2, amylase/lipase normal, with normal liver enzymes, INR 1.45. Urinalysis 15-25 RBC/1-3 WBCs. Chest x-ray revealed cardiomegaly with a left basilar opacity. X-ray of the right shoulder revealed moderate glenohumeral and mild to moderate AC joint arthritis. X-ray of the right elbow revealed a small anterior joint effusion. X-ray of the pelvis and right hip reveal degenerative changes. X-ray of the lumbar spine revealed diffuse moderate degenerative changes. She was followed off antibiotics, and temperatures have remained normal overnight. This morning blood cultures 2 were reported positive for gram-positive cocci in pairs and chains. She continues to report pain in the right elbow, right shoulder and left ankle. She reports feeling well prior to the onset of her recent symptoms. She has no ill contacts. Her last dental work was approximately 2 months prior to admission, prior to which she states she took an antibiotic, though she is not sure which one. Allergies/Medications Allergies: Coded Allergies: amoxicillin (From AUGMENTIN) (UNKNOWN 05/15/16) clavulanic acid (From AUGMENTIN) (UNKNOWN 05/15/16) codeine (STOMACH CRAMPS 05/15/16) erythromycin base (STOMACH CRAMPS 05/15/16) hydrocodone (From VICODIN) (STOMACH CRAMPS 05/15/16) zolpidem (From AMBIEN) (HALLUCINATIONS 05/15/16) Home Med List: Aspirin (Ecotrin*) 81 MG TABLET.DR 1 TAB PO DAILY HEART HEALTH (Reported) Atenolol 25 MG TABLET 0.5 TAB PO TID HEART (Reported) Brimonidine Tartrate/Timolol (Combigan Eye Drops) 0.2 %-0.5 % DROPS 1 DROP OP BID EYE (Reported) Donepezil HCl 5 MG TABLET 1 TAB PO QPM DEMENTIA (Reported) Estradiol 0.5 MG TABLET 1 TAB PO Tuesday HORMONE (Reported) Hydrochlorothiazide 25 MG TABLET 1 TAB PO DAILY WATER PILL (Reported) Multivitamin (Daily Multiple Vitamin) 1 EACH TABLET 1 TAB PO DAILY SUPPLEMENT (Reported) Potassium Chloride 10 MEQ TAB.ER.PRT 1 TAB PO DAILY SUPPLEMENT (Reported) Prednisolone Acetate 1 % DROPS.SUSP 1 GTT OPH QPM EYE (Reported) Simvastatin (Simvastatin*) 20 MG TABLET 1 TAB PO QPM CHOLESTEROL (Reported) Warfarin Sodium 2 MG TABLET 1 TAB PO 1700 BLOOD THINNER (Reported) Past History Travel History Traveled to [place] past 21 day No Medical History Blood Transfusion Hx: No Neurological: HALLUCINATIONS EENT: glaucoma Cardiovascular: hypertension, hyperlipidemia, Rheumatic heart disease Respiratory: NONE Gastrointestinal: NONE Hepatic: NONE Renal: NONE Musculoskeletal: NONE Psychiatric: NONE Endocrine: NONE Blood Disorders: NONE Cancer(s): basal cell carcinoma B[employer]ING C[employer] MANAGER/Reproductive: NONE History of MRSA: No History of VRE: No History of CDIFF: No Isolation History: Standard Influenza Vaccine: 02/20/16 Surgical History Surgical History: cataract removal, status post mitral valve replacement 2 years prior to admission, status post aortic valve replacement 2 years prior to admission Family History Relations & Conditions If Any: Relation not specified for: *No pertinent family history Psychosocial History Where Do You Live? Home Services at Home: None Smoking Status: Former Smoker ETOH Use: occasional use Illicit Drug Use: denies illicit drug use Review of Systems Review of Systems Constitutional: Denies: fever. Cardiovascular: Denies: chest pain. Respiratory: Denies: cough, short of breath. GI: Reports: diarrhea. Denies: abdominal pain. Genitourinary: Reports: no symptoms. All Other Systems: Reviewed and Negative Exam & Diagnostic Data Last 24 Hrs of Vital Signs/I&O Vital Signs Date Time Temp Pulse Resp B/P Pulse O2 O2 Flow FiO2 Ox Delivery Rate 05/16 0813 99.8 94 20 150/72 96 Room Air 05/16 0309 137/81 05/16 0304 97.7 110 21 160/94 95 Room Air 05/16 0010 104/52 05/15 2353 98.4 92 20 104/52 96 05/15 1925 99.8 96 18 102/52 94 Room Air 05/15 1827 100.2 96 18 114/56 95 Room Air 05/15 1808 101.3 05/15 1747 101.5 05/15 1647 99.7 88 20 137/55 05/15 1631 99.7 84 22 126/62 96 Room Air 05/15 1438 100.3 05/15 1437 85 18 112/55 96 05/15 1215 99.6 68 20 124/60 96 Room Air 05/15 1057 99.6 80 18 111/55 95 Room Air Intake & Output 05/16 1600 05/16 0800 05/16 0000 Intake Total 720 155 Output Total 150 Balance 720 5 Intake, IV 600 75 Intake, Oral 120 80 Number 3 Bowel Movements Output, Urine 150 Patient 125 lb Weight Physical Exam Other Physical Findings: She is awake and alert in no acute distress. MAXIMUM TEMPERATURE 101.5. Skin reveals no rash. HEENT exam is negative, with no conjunctival petechiae. Neck is supple with no adenopathy. Lungs are clear. Heart regular rhythm with a 1/6 systolic ejection murmur. Abdomen is soft, nontender with positive bowel sounds. Back no CVA tenderness. Extremities tender on movement of the left ankle, with no erythema or obvious effusion; tender on palpation of the right elbow, with good range of motion and without erythema or obvious swelling; tender over the right AC joint, with slight swelling and with pain on movement, without erythema; no cyanosis, clubbing or edema. Neuro is without focality. Last 24 Hours of Lab Results: Laboratory Tests 05/16 1637 Chemistry Sodium (137 - 145 mmol/L) 136 L Potassium (3.5 - 5.1 mmol/L) 3.3 L Chloride (98 - 107 mmol/L) 105 Carbon Dioxide (22 - 30 mmol/L) 21 L Anion Gap (5 - 16) 11 BUN (7 - 17 mg/dL) 23 H Creatinine (0.5 - 1.0 mg/dL) 1.0 Estimated GFR (>60 ml/min) 53 L BUN/Creatinine Ratio (7 - 25 %) 23.0 Lactic Acid (0.7 - 2.1 mmol/L) 1.9 Coagulation PT (9.4 - 12.5 SEC) 14.2 H 15.2 H INR (0.90 - 1.19) 1.36 H 1.45 H Hematology CBC w Diff Pending WBC Pending RBC Pending Hgb Pending Hct Pending MCV Pending MCH Pending RDW Pending Plt Count Pending MPV Pending PUBS MCHC Pending Serology Virus Culture Pending 05/15 1310 Urines Urine Color (YEL,AMB,STR) YEL Urine Clarity (CLEAR) CLEAR Urine pH (5.0 - 8.0) 6.5 Ur Specific [place] (1.001 - 1.035) 1.010 Urine Protein (NEG,<30 MG/DL) 30 H Urine Ketones (NEG) NEG Urine Nitrite (NEG) NEG Urine Bilirubin (NEG) NEG Urine Urobilinogen (0.1 - 1.0 EU/dl) 0.2 Ur Leukocyte Esterase (NEG) TRACE H Ur Microscopic SEDIMENT EXAMINED Urine RBC (0 - 5 /HPF) 15-25 H Urine WBC (0 - 2 /HPF) 1-3 H Ur Epithelial Cells (NONE,FEW) RARE Urine Mucus (FEW,NONE) RARE Urine Hemoglobin (NEG) MOD H Urine Glucose (N MG/DL) NEG 05/15 1133 Chemistry Sodium (137 - 145 mmol/L) 134 L Potassium (3.5 - 5.1 mmol/L) 3.2 L Chloride (98 - 107 mmol/L) 96 L Carbon Dioxide (22 - 30 mmol/L) 29 Anion Gap (5 - 16) 10 BUN (7 - 17 mg/dL) 25 H Creatinine (0.5 - 1.0 mg/dL) 1.0 Estimated GFR (>60 ml/min) 53 L BUN/Creatinine Ratio (7 - 25 %) 25.0 Glucose (65 - 99 mg/dL) 114 H Uric Acid (2.5 - 6.2 mg/dL) 6.9 H Calcium (8.4 - 10.2 mg/dL) 8.8 Phosphorus (2.5 - 4.5 mg/dL) 2.7 Magnesium (1.6 - 2.3 mg/dL) 1.9 Total Bilirubin (0.2 - 1.3 mg/dL) 0.8 AST (14 - 36 U/L) 28 ALT (9 - 52 U/L) 21 Alkaline Phosphatase (<127 U/L) 80 Creatine Kinase (30 - 135 U/L) 23 L Troponin I (< 0.11 ng/ml) < 0.01 Total Protein (6.3 - 8.2 g/dL) 6.0 L Albumin (3.5 - 5.0 g/dL) 3.4 L Globulin (1.9 - 4.2 gm/dL) 2.6 Albumin/Globulin Ratio (1.1 - 2.2 %) 1.3 Amylase (30 - 110 U/L) < 30 L Lipase (23 - 300 U/L) 25 25-OH Vitamin D Total (30 - 100 ng/ml) 14.7 L TSH (0.270 - 4.200 uIU/mL) 0.672 Thyroxine (T4) (4.5 - 10.9 ug/dL) 7.2 Thyroxine Binding Indx (23.5 - 40.5 % UPTAKE) 35.4 Hematology CBC w Diff MAN DIFF ORDERED WBC (4.8 - 10.8 /CUMM) 17.8 H RBC (4.20 - 5.40 /CUMM) 4.25 Hgb (12.0 - 16.0 G/DL) 12.5 Hct (37 - 47 %) 37.2 MCV (81.0 - 99.0 FL) 87.5 MCH (27.0 - 31.0 PG) 29.5 RDW (11.5 - 14.5 %) 13.5 Plt Count (130 - 400 /CUMM) 143 MPV (7.4 - 10.4 FL) 8.1 Gran % (42.2 - 75.2 %) 92.0 H Lymphocytes % (20.5 - 51.1 %) 1.7 L Monocytes % (1.7 - 9.3 %) 6.3 Eosinophils % (0 - 5 %) 0 Basophils % (0.0 - 2.0 %) 0 L Absolute Granulocytes (1.4 - 6.5 /CUMM) 16.3 H Absolute Lymphocytes (1.2 - 3.4 /CUMM) 0.3 L Absolute Monocytes (0.10 - 0.60 /CUMM) 1.1 H Absolute Eosinophils (0.0 - 0.7 /CUMM) 0 Absolute Basophils (0.0 - 0.2 /CUMM) 0 Normocytic RBCs VERIFIED Normochromic RBCs VERIFIED PUBS MCHC (33.0 - 37.0 G/DL) 33.7 ESR Westergren (0 - 20 MM) 43 H Immunology FROYLAN Titer Pending Anti-Nuclear Antibody Pending Last 24 Hours of Cameron Results: Blood cultures May 15 positive for gram-positive cocci in pairs and chains Rapid flu swab May 15 negative Urine culture May 15 pending Urine strep pneumo antigen and Legionella antigen May 15 negative Blood cultures May 16 pending Diagnostic Data Recent Imaging Findings: Chest x-ray, personally reviewed, reveals cardiomegaly with a left basilar opacity. X-ray of the right shoulder reveals moderate glenohumeral and mild to moderate AC joint arthritis. X-ray of the right elbow reveals a small anterior joint effusion. X-ray of the pelvis and right hip reveal degenerative changes. X-ray of the lumbar spine reveals diffuse moderate degenerative changes. X-ray of the left ankle no report available, but with no obvious abnormalities Assessment/Plan Assessment/Plan Impression: This is an 85-year-old woman status post mitral and aortic valve replacements 2 years prior to admission, maintained on Coumadin, admitted on May 15 with several days of generalized weakness, arthralgias involving the left ankle, right elbow and right shoulder, and an episode of vomiting, found on admission to be febrile with a leukocytosis and now with blood cultures 2 positive for gram-positive cocci in pairs and chains. Of most concern is the possibility of prosthetic valve endocarditis and she will likely require further evaluation for this. She has no obvious focus of infection, though she did have dental work approximately 2 months prior to admission. Her episode of vomiting could raise concern for an intra-abdominal infection, for example a biliary process, though she has no right upper quadrant tenderness. Her arthralgias could be secondary to underlying endocarditis, with no obvious inflammation to suggest a septic joint. Her penicillin allergy may complicate her treatment and will need to obtain more information regarding this. At this time she will need to be covered empirically, primarily for streptococci, including Enterococcus, pending final cultures. Suggestion: 1. Obtain more information regarding her penicillin allergy and antibiotics she has tolerated from her primary care physician 2. Orthopedic evaluation for her multiple arthralgias 3. Will likely require TREVOR 4. Follow-up final blood cultures 5. Begin Vancomycin 1 g IV every 24 hours pending above Consult Acknowledgment - Thank you for your consult request.
--- NOTE | 2016-05-16 10:02 | ULTRASOUND REPORT ---
EXAMINATION: US TRIPLEX LOWER EXTREMITY, LEFT CLINICAL INFORMATION: Left ankle tenderness, swelling and calor. COMPARISON: None. TECHNIQUE: Color-flow triplex imaging with spectral analysis and compression Doppler were performed on the left lower extremity. FINDINGS: Respiratory variation, normal compression and augmented flow are noted throughout the lower extremity. The visualized common femoral vein, proximal greater saphenous vein, femoral vein, profunda femoral vein, popliteal vein and visualized mid calf venous segments show no evidence of deep venous thrombosis. There is no Chen's cyst. IMPRESSION: Normal triplex scan without evidence of deep venous thrombosis involving the left lower extremity.
--- NOTE | 2016-05-16 10:05 | ULTRASOUND REPORT ---
EXAMINATION: US ABDOMEN COMPLETE CLINICAL INFORMATION: Fever, myalgia and abnormal urinalysis; question hydronephrosis. COMPARISON: None TECHNIQUE: Real-time imaging of the abdominal viscera. FINDINGS: PANCREAS: Normal. ABDOMINAL AORTA: The proximal segment is normal in caliber. INFERIOR VENA CAVA: Visualized portions are normal. LIVER: Normal. The liver demonstrates normal size, contour and echogenicity. No focal lesion or intrahepatic biliary duct dilatation. GALLBLADDER: There is no sonographic Walker's sign. The gallbladder is physiologically distended without evidence of stones, sludge, polyps, wall thickening or pericholecystic fluid. COMMON BILE DUCT: Normal in caliber measuring 0.5 cm in diameter. RIGHT KIDNEY: Normal. No hydronephrosis. No renal calculi or focal parenchymal lesions. The kidney measures 8.9 cm in maximum dimension. LEFT KIDNEY: Normal. No hydronephrosis. No renal calculi or focal parenchymal lesions. The kidney measures 9.8 cm in maximum dimension. SPLEEN: Normal. The spleen measures 7.7 cm in maximum dimension. FREE FLUID: There is mild free fluid in the right upper quadrant and left upper quadrant. There are small bilateral pleural effusions. IMPRESSION: 1. No renal mass, calculus or hydronephrosis is seen bilaterally. 2. There is mild ascites, and small bilateral pleural effusions are seen.
[2016-05-16 10:25] LABS: ABSOLUTE BASOPHIL COUNT 0 /CUMM (0.0-0.2); ABSOLUTE EOSINOPHIL COUNT 0 /CUMM (0.0-0.7); ABSOLUTE LYMPH COUNT 0.2 /CUMM (1.2-3.4); ABSOLUTE MONOCYTE COUNT 0.2 /CUMM (0.10-0.60); BASOPHIL % 0 % (0.0-2.0); EOSINOPHIL % 0 % (0-5); GRANULOCYTE % 96.7 % (42.2-75.2); HEMATOCRIT 33.2 % (37-47); MEAN CORPUSCULAR HGB 29.6 PG (27.0-31.0); MEAN CORPUSCULAR HGB CONC 33.8 G/DL (33.0-37.0); MEAN CORPUSCULAR VOLUME 87.6 FL (81.0-99.0); MEAN PLATELET VOLUME 8.6 FL (7.4-10.4); PLATELET COUNT 125 /CUMM (130-400); RBC DISTRIBUTION WIDTH 13.6 % (11.5-14.5); RED BLOOD CELL CT 3.79 /CUMM (4.20-5.40); WHITE BLOOD CELL COUNT 10.3 /CUMM (4.8-10.8)
--- NOTE | 2016-05-16 15:32 | Cons- Orthopedic ---
General Information and HPI Consulting Request Date of Consult: 05/16/16 Requested By: MARS GRULLON MD Reason for Consult: Multiple joint pain, question septic arthritis Source of Information: patient Exam Limitations: no limitations History of Present Illness: Patient is an 85-year-old female admitted to the medical service yesterday with complaints of multiple joint pains. She denies trauma recently. She denies any fever at home. She had difficulty bearing weight on the left lower extremity and difficulty with any range of motion actively of her right shoulder. She is admitted to the medical service with a white blood count of 17. Blood cultures were positive. Infectious diseases consultation. I am consultED for the possibility and evaluation of possible septic arthritis of multiple joints. Allergies/Medications Allergies: Coded Allergies: amoxicillin (From AUGMENTIN) (UNKNOWN 05/15/16) clavulanic acid (From AUGMENTIN) (UNKNOWN 05/15/16) codeine (STOMACH CRAMPS 05/15/16) erythromycin base (STOMACH CRAMPS 05/15/16) hydrocodone (From VICODIN) (STOMACH CRAMPS 05/15/16) zolpidem (From AMBIEN) (HALLUCINATIONS 05/15/16) Home Med List: Aspirin (Ecotrin*) 81 MG TABLET.DR 1 TAB PO DAILY HEART HEALTH (Reported) Atenolol 25 MG TABLET 0.5 TAB PO TID HEART (Reported) Brimonidine Tartrate/Timolol (Combigan Eye Drops) 0.2 %-0.5 % DROPS 1 DROP OP BID EYE (Reported) Donepezil HCl 5 MG TABLET 1 TAB PO QPM DEMENTIA (Reported) Estradiol 0.5 MG TABLET 1 TAB PO Tuesday HORMONE (Reported) Hydrochlorothiazide 25 MG TABLET 1 TAB PO DAILY WATER PILL (Reported) Multivitamin (Daily Multiple Vitamin) 1 EACH TABLET 1 TAB PO DAILY SUPPLEMENT (Reported) Potassium Chloride 10 MEQ TAB.ER.PRT 1 TAB PO DAILY SUPPLEMENT (Reported) Prednisolone Acetate 1 % DROPS.SUSP 1 GTT OPH QPM EYE (Reported) Simvastatin (Simvastatin*) 20 MG TABLET 1 TAB PO QPM CHOLESTEROL (Reported) Warfarin Sodium 2 MG TABLET 1 TAB PO 1700 BLOOD THINNER (Reported) Current Medications: Current Medications Sig/Lalo Start time Last Medication Dose Route Stop Time Status Admin Acetaminophen 650 MG Q6P PRN 05/15 1815 AC 05/16 PO 1507 Acetaminophen 650 MG ONCE ONE 05/15 1730 DC 05/15 PO 05/15 1731 1747 Acetaminophen 0 .STK-MED ONE 05/15 1723 DC PO Aspirin Buffered 81 MG DAILY 05/16 1000 AC 05/16 PO 1008 Atenolol 12.5 MG TID 05/15 2200 AC 05/16 PO 1008 Atorvastatin Calcium 10 MG 1700 05/16 1700 AC PO Bromocriptine 2.5 MG BID 05/15 2200 DC Mesylate PO Donepezil HCl 5 MG QPM 05/15 2200 AC 05/16 PO 0005 Heparin Sodium 5,000 UNIT Q8 05/15 2200 CAN (Porcine) SC Melatonin 5 MG ONCE ONE 05/16 0300 DC PO 05/16 0301 Metoprolol Tartrate 0 .STK-MED ONE 05/15 1639 DC PO Metoprolol Tartrate 12.5 MG ONCE ONE 05/15 1615 DC 05/15 PO 05/15 1616 1647 Pantoprazole Sodium 40 MG ONCE ONE 05/16 0315 DC 05/16 IV 05/16 0316 0436 Patient Medication 1 UNIT ONE NR 05/15 2100 DC Teaching ED 05/15 2130 Potassium Chloride 40 MEQ ONCE ONE 05/16 1215 DC 05/16 PO 05/16 1216 1408 Potassium Chloride 40 MEQ ONCE ONE 05/16 1130 CAN PO 05/16 1131 Potassium Chloride 40 MEQ ONCE ONE 05/150 DC 05/15 PO 05/15 2201 2108 Potassium Chloride 40 MEQ ONCE ONE 05/15 1830 DC PO 05/15 1831 Prednisolone 1 GTT QPM 05/15 2200 AC 05/16 OPH 0006 Sodium Chloride 1,000 ML .[id number] 05/15 1815 AC 05/16 IV 0754 Timolol Maleate 1 GTT BID 05/15 2200 AC 05/16 OPH 1012 Trimethobenzamide HCl 200 MG TID PRN 05/16 0315 AC 05/16 IM 0341 Trimethobenzamide HCl 200 MG TID PRN 05/15 1900 DC IM Vancomycin HCl 1,000 MG DAILY 05/16 1000 AC 05/16 Dextrose/Water 250 ML IV 1008 Warfarin Sodium 5 MG COUMADIN 1700 ONE 05/16 1700 AC PO 05/16 1701 Past History Medical History Blood Transfusion Hx: No Neurological: HALLUCINATIONS EENT: glaucoma Cardiovascular: hypertension, hyperlipidemia, Rheumatic heart disease Respiratory: NONE Gastrointestinal: NONE Hepatic: NONE Renal: NONE Musculoskeletal: NONE Psychiatric: NONE Endocrine: NONE Blood Disorders: NONE Cancer(s): basal cell carcinoma INSPECTOR FUEL HOSE/Reproductive: NONE Surgical History Pertinent Surgical History: cataract removal, status post mitral valve replacement 2 years prior to admission status post aortic valve replacement 2 years prior to admission Family History Relations & Conditions If Any: Relation not specified for: *No pertinent family history Psychosocial History Where Do You Live? Home Services at Home: None Smoking Status: Former Smoker ETOH Use: occasional use Illicit Drug Use: denies illicit drug use Exam & Diagnostic Data Vital Signs and I&O Vital Signs Date Time Temp Pulse Resp B/P Pulse O2 O2 Flow FiO2 Ox Delivery Rate 05/16 1008 94 150/72 05/16 0813 99.8 94 20 150/72 96 Room Air 05/16 0309 137/81 05/16 0304 97.7 110 21 160/94 95 Room Air 05/16 0010 104/52 05/15 2353 98.4 92 20 104/52 96 05/15 1925 99.8 96 18 102/52 94 Room Air 05/15 1827 100.2 96 18 114/56 95 Room Air 05/15 1808 101.3 05/15 1747 101.5 05/15 1647 99.7 88 20 137/55 05/15 1631 99.7 84 22 126/62 96 Room Air Intake & Output 05/16 1600 05/16 0800 05/16 0000 05/15 1600 05/15 0800 05/15 0000 Intake Total 600 718 770 3170 Output Total 550 150 300 Balance 50 720 5 700 Intake, IV 754 29 5462 Intake, Oral 600 120 80 Number 1 3 Bowel Movements Output, Urine 550 150 300 Patient 125 lb 126 lb Weight On physical exam section the patient awake and alert. She is oriented to person place and time. Head and neck exam reveals extraocular movements intact with pupils equal round reactive. Neck is supple with no JVD. Lungs are clear bilaterally. Cardiovascular exam reveals S1 and S2. Abdomen is round soft nontender. Examination the right shoulder reveals pain with passive and active range of motion of the right glenohumeral joint. The right shoulder is mildly warm to touch. There is no erythema. There is no fluctuance palpable. The right upper extremity has no pain with range of motion of the right a elbow or wrist. The right upper chamois is neurovascular intact. Examination of the left upper extremity reveals no aberrant valgus. Examination of left lower extremity reveals painless range of motion of the hip and knee on the left. She is pain with passive and active range of motion of the left ankle. There is no erythema about the left ankle. There is no fluctuance or swelling about the left ankle. The foot is grossly neurovascularly intact. The right lower extremity is within normal limits. X-rays the right shoulder show previous rotator cuff repair with rotator cuff arthropathy and elevation of the humeral head. X-rays of the right elbow show no evidence of any significant degenerative changes or large effusions. X-rays of the left ankle show no sign of degenerative changes. Assessment/Plan Assessment/Plan 85-year-old female positive blood cultures and multiple joint pain. The patient does have pain with range of motion of the shoulder and ankle. There is mild concern for possibility of septic arthritis of the joints. Consult Acknowledgment - Thank you for your consult request.
[2016-05-16 15:49] VITALS: BP 138/68
[2016-05-16 23:56] VITALS: BP 128/70
--- NOTE | 2016-05-17 07:18 | PN- Housestaff ---
KANIKA ARCINIEGA 05/17/16 0717: Subjective Follow-up For: 1. bacteremia Subjective: The patient was comfortable this morning. She stated that she slept well last night. Still complains of pain in her right upper extremity. MAXIMUM TEMPERATURE 99.8. She is scheduled for possible TREVOR on Tuesday. She was also taken to the IR for shoulder tap. Discussed with Dr. Suresh, who confirmed that the patient received penicillin in the past. Also spoke to Jeison Salgado MD about possibility of intervention in the right shoulder joint. He was of the opinion that, low white count (less than 100,000), makes other differentials likely-inflammatory. At this time no active intervention is required from orthopedic service. Review of Systems Constitutional: Reports: see HPI. Objective Last 24 Hrs of Vital Signs/I&O Vital Signs Date Time Temp Pulse Resp B/P Pulse O2 O2 Flow FiO2 Ox Delivery Rate 05/16 2356 98.8 75 20 128/70 97 Room Air 05/16 2126 74 132/64 05/16 1612 80 138/68 05/16 1549 97.5 80 21 138/68 97 Room Air 05/16 1008 94 150/72 05/16 0813 99.8 94 20 150/72 96 Room Air Intake & Output 05/17 0800 05/17 0000 05/16 1600 Intake Total 840 600 600 Output Total 275 300 550 Balance 565 300 50 Intake, IV 600 Intake, Oral 240 600 600 Number 1 1 Bowel Movements Output, Urine 275 300 550 Physical Exam General Appearance: No Acute Distress Other Physical Findings: General Exam: AAOx3, No acute distress, Skin: No rashes, no breakdown HEENT: PERRLA, EOMI Neck: Supple, No JVD No cervical lymphadenopathy CVS: Reg Rate, Normal S1,S2, No MGR Resp: Normal air entry, no ronchi/rales Abdomen: Soft, No tenderness, Normal Bowel Sounds Neuro: Normal Speech, Strength 5/5 b/l x 4 extremities, Sensation intact, CN III -XII NL, Reflexes 2+ Extremities: No cyanosis, No pedal edema, Swelling and Current Medications: Current Medications Sig/Lalo Start time Last Medication Dose Route Stop Time Status Admin Acetaminophen 650 MG .STK-MED ONE 05/16 1504 DC PO 05/16 1505 Acetaminophen 650 MG Q6P PRN 05/15 1815 AC 05/16 PO 1507 Aspirin Buffered 81 MG DAILY 05/16 1000 AC 05/16 PO 1008 Atenolol 12.5 MG TID 05/15 2200 AC 05/16 PO 2126 Atorvastatin Calcium 10 MG 1700 05/16 1700 AC 05/16 PO 1611 Donepezil HCl 5 MG QPM 05/15 2200 AC 05/16 PO 0005 Enoxaparin Sodium 60 MG AT BEDTIME 05/16 220 AC 05/16 SC 2129 Enoxaparin Sodium 60 MG DAILY 05/16 1553 DC SC Potassium Chloride 40 MEQ ONCE ONE 05/16 1215 DC 05/16 PO 05/16 1216 1408 Potassium Chloride 40 MEQ ONCE ONE 05/16 1130 CAN PO 05/16 1131 Prednisolone 1 GTT QPM 05/15 220 AC 05/16 OPH 2130 Sodium Chloride 1,000 ML .[id number] 05/15 1815 AC 05/16 IV 2130 Timolol Maleate 1 GTT BID 05/15 2200 AC 05/16 OPH 2130 Trimethobenzamide HCl 200 MG TID PRN 05/16 0315 AC 05/16 IM 0341 Vancomycin HCl 1,000 MG DAILY 05/16 1000 AC 05/16 Dextrose/Water 250 ML IV 1008 Warfarin Sodium 5 MG COUMADIN 1700 ONE 05/16 1700 CAN PO 05/16 1701 Last 24 Hrs of Lab/Cameron Results Last 24 Hrs of Labs/Mics: Laboratory Tests 05/16/16 0810: Anion Gap 11, Estimated GFR 53 L, BUN/Creatinine Ratio 23.0, Lactic Acid 1.9, PT 14.2 H, INR 1.36 H, CBC w Diff NO MAN DIFF REQ, RBC 3.79 L, MCV 87.6, MCH 29.6, RDW 13.6, MPV 8.6, Gran % 96.7 H, Lymphocytes % 1.6 L, Monocytes % 1.7, Eosinophils % 0, Basophils % 0 L, Absolute Granulocytes 10.0 H, Absolute Lymphocytes 0.2 L, Absolute Monocytes 0.2, Absolute Eosinophils 0, Absolute Basophils 0, PUBS MCHC 33.8 Microbiology 05/16 0852 STOOL: Clostridium difficile Toxin A & B - COLB 05/16 0840 BLOOD: Blood Culture - RECD 05/16 0835 BLOOD: Blood Culture - RECD Assessment/Plan Assessment: Ms Poe is an active woman who has a past medical history of hypertension, rheumatic heart disease, mitral and aortic valve replacements, and is being evaluted for vomiting, and pain in her right upper extremity and left lower extremity x 1 days ago. BC x 2- GPC in chains and clusters 05/17/16. Previous blood cultures revealed group B streptococcus. Body fluid analysis from right shoulder joint (cyst and no real fluid)-reveal elevated WBC counts in the range of 40,000. No crystals were found. Echocardiogram revealed thickening of bioprosthetic mitral valve. Limited examination. Suggestive of infective endocarditis however TREVOR would be more informative. Below is the problem list and plan: #1 fever, vomiting-Zofran for nausea. Continue to monitor WBC count and serial abdominal exams to be done. If needed may consider a CAT scan abdomen. #2 joint pains- Patient has a history of valve replacement, and infective endocarditis is a possible diagnosis. Also shows septic joint in the right shoulder. Blood cultures revealed group B strep making GI source likely possibility that may have seeded valves. Currently on vancomycin. Use of penicillin or ceftriaxone is unavailable at this time. Can change the antibiotic to clindamycin, or continue vancomycin(defer the decision to the ID) still more information is obtained about penicillin allergy. Transesophageal echocardiogram to be done on Tuesday. Sofia Kirkpatrick MD cardiology advising. #3 due to prophylaxis-Lovenox for DVT prophylaxis and also anti-coagulation for prosthetic valve. Problem List: 1. Leukocytosis 2. Myalgia Pain Ratin Pain Location: Right shoulder joint Pain Goal: Pain 4 or less Pain Plan: Tylenol when necessary Tomorrow's Labs & Rationales: CBC-check for leukocytosis, patient has septic joint BEP to monitor her potassium has been low. GODWIN SHEETS MD 05/17/16 1117: Attending MD Review Statement Attending Statement Attending MD Statement: examined this patient, discuss w/resident/PA/HOSPICE SOCIAL WORKER, agreed w/resident/PA/HOSPICE SOCIAL WORKER, reviewed EMR data (avail) Attending Assessment/Plan: 85F PMH HTN, rheumatic heart disease s/p AVR and MVR admitted with right shoulder and left ankle pain, nausea, vomiting, malaise, and generalized weakness. Found to have positive blood cultures this morning with gram positive cocci. No recent dental surgery, no trauma, no rash. Denies chest pain, palpitations, SOB, abdominal pain, dysuria. Febrile to 101.3, WBC 18,000, K 3.2 , ESR 43. Mild tenderness to right elbow with mild effusion, shoulder not tender, mild tenderness to left ankle. Imaging shows effusion in right elbow and left ankle without fracture. Plan - Start Vancomycin - Follow blood cultures, repeat if febrile - Follow ID and orthopedic recommendations - Obtain TTE, if negative obtain TREVOR - Continue home medications - Stop Coumadin in case arthrocentesis is required. Start Lovenox - Contact patient's PCP to check antibiotic allergies and what she has tolerated before (particulary cephalosporins)
[2016-05-17 08:22] VITALS: BP 138/60
[2016-05-17 09:23] LABS: PT 12.4 SEC (9.4-12.5)
[2016-05-17 09:40] LABS: ABSOLUTE BASOPHIL COUNT 0 /CUMM (0.0-0.2); ABSOLUTE EOSINOPHIL COUNT 0 /CUMM (0.0-0.7); ABSOLUTE GRANULOCYTE CT 9.4 /CUMM (1.4-6.5); ABSOLUTE LYMPH COUNT 0.4 /CUMM (1.2-3.4); ABSOLUTE MONOCYTE COUNT 1.1 /CUMM (0.10-0.60); BASOPHIL % 0 % (0.0-2.0); EOSINOPHIL % 0 % (0-5); HEMATOCRIT 31.2 % (37-47); MEAN CORPUSCULAR HGB 29.5 PG (27.0-31.0); MEAN CORPUSCULAR HGB CONC 33.9 G/DL (33.0-37.0); MEAN CORPUSCULAR VOLUME 86.9 FL (81.0-99.0); MEAN PLATELET VOLUME 8.3 FL (7.4-10.4); PLATELET COUNT 127 /CUMM (130-400); RBC DISTRIBUTION WIDTH 13.6 % (11.5-14.5)
--- NOTE | 2016-05-17 13:28 | ECHOCARDIOGRAM REPORT ---
LB ALVARADO Age: 85 : 1930 Gender: F Exam Date: 05/17/2016 09:39 Exam Location: [address] [place] [address] Ht (in): 59 Wt (lb): 124 BSA: 1.54 BP: / Ordering Physician: KANIKA ARCINIEGA MD Referring Physician: KANIKA ARCINIEGA MD Technologist: Brian Wisdom [facility] Room Number: 217-1 Indications: INFECTIVE ENDOCARDITIS Rhythm: Atrial fibrillation Technical Quality: Fair FINDINGS Left Ventricle Normal size left ventricle. No obvious regional wall motion abnormalities. Normal left ventricular ejection fraction estimated at 55-60%. Abnormal septal motion. Right Ventricle Right ventricular dilatation. Right Atrium Right atrial dilatation. Left Atrium Mild left atrial dilatation. Mitral Valve Normally functioning prosthetic mitral valve. Bioprosthetic mitral valve. Mild prosthetic mitral valve regurgitation. Aortic Valve Aortic valve not well visualized. Tricuspid Valve Tricuspid valve not well visualized, grossly normal. Moderate tricuspid regurgitation. Right ventricular systolic pressure estimated to be elevated at 52 mmHg. Pulmonic Valve Pulmonic valve not well visualized. Mild pulmonic regurgitation. Pericardium No pericardial effusion. Great Vessels Aortic root and proximal ascending aorta not well visualized, grossly normal. CONCLUSIONS 1. This was a technically difficult examination. 2. The aortic valve was not well visualized anatomically. THere is an elevated gradient of 30 mmHg across the valve. If clinically indicated, a TREVOR would allow better assessment of aortic valve structure and function. 3. A bioprosthetic mitral valve is present. Thickening of the bioprosthetic valve leaflets is present. On the apical views, there appears to be prolapse or partial eversion of the leaflets present. The possibility of a vegetation cannot be excluded. Minimal to mild mitral insufficiency appears to be present. Left atrial enlargement is present. 4. There is no significant pericardial fluid present. 5. The left ventricular chamber size and systolic function appear normal. Abnormal septal motion is present. The ejection fraction is normal.. Mobile echoes are noted in the LV cavity which likely represent residual chordal structures. 6. Mild enlargement of the right heart chambers is present with moderate tricuspid insufficiency and pulmonary hypertension with an estimated RV systolic pressure of 52 mmHg. 7. A TREVOR is suggested in this patient to better assess the anatomy of the aortic and mitral valves and to better exclude the possibility of vegetative lesions Sofia Kirkpatrick M.D. (Electronically Signed) Final Date: 17 May 2016 13:27 MEASUREMENTS (Male / Female) Normal Values 2D ECHO LV Diastolic Diameter PLAX 3.6 cm 4.2 - 5.9 / 3.9 - 5.3 cm LV Systolic Diameter PLAX 2.2 cm 2.1 - 4.0 cm LV Fractional Shortening PLAX 38.9 % 25 - 46 % LV Ejection Fraction 2D Teich 70.2 % IVS Diastolic Thickness 1.0 cm LVPW Diastolic Thickness 0.9 cm LV Relative Wall Thickness 0.5 RV Internal Dim ED PLAX 3.0 cm 1.9 - 3.8 cm Aortic Root Diameter 3.1 cm LA Systolic Diameter LX 3.6 cm 3.0 - 4.0 / 2.7 - 3.8 cm Ascending Aorta Diameter 3.3 cm DOPPLER AV Peak Velocity 274.0 cm/s AV Peak Gradient 30.0 mmHg AV Mean Velocity 172.0 cm/s AV Mean Gradient 14.0 mmHg AV Velocity Time Integral 53.0 cm LVOT Peak Velocity 75.2 cm/s LVOT Peak Gradient 2.3 mmHg LVOT Mean Velocity 48.9 cm/s LVOT Mean Gradient 1.0 mmHg LVOT Velocity Time Integral 14.5 cm MV Peak Velocity 185.0 cm/s MV Peak Gradient 13.7 mmHg MV Mean Velocity 89.6 cm/s MV Mean Gradient 5.0 mmHg Mitral E Point Velocity 173.0 cm/s MV PHT Velocity 189.0 cm/s MV Deceleration Clayton 844.0 cm/s MV Pressure Half Time 67.2 ms MV Area PHT 3.3 cm MV Deceleration Time 211.0 ms TR Peak Velocity 338.0 cm/s TR Peak Gradient 45.7 mmHg Right Atrial Pressure 10.0 mmHg Pulmonary Artery Systolic Pressu 55.7 mmHg Right Ventricular Systolic Press 55.7 mmHg PV Peak Velocity 112.0 cm/s PV Peak Gradient 5.0 mmHg PV Mean Velocity 67.7 cm/s PV Mean Gradient 2.0 mmHg PV Velocity Time Integral 21.9 cm LV E' Lateral Velocity 12.1 cm/s Mitral E to LV E' Lateral Ratio 14.3 LV E' Septal Velocity 10.7 cm/s Mitral E to LV E' Septal Ratio 16.2
--- NOTE | 2016-05-17 15:20 | PN- Infect Dx ---
Subjective Subjective: Afebrile. She feels somewhat improved with decreased left ankle and right elbow pain, but she is still unable to raise her right arm secondary to pain in the right shoulder. Objective Last 24 Hrs of Vital Signs/I&O Vital Signs Date Time Temp Pulse Resp B/P Pulse O2 O2 Flow FiO2 Ox Delivery Rate 05/17 1216 140/72 05/17 1151 Room Air 05/17 0822 98.2 92 20 138/60 98 Room Air 05/16 2356 98.8 75 20 128/70 97 Room Air 05/16 2126 74 132/64 05/16 1612 80 138/68 05/16 1549 97.5 80 21 138/68 97 Room Air Intake & Output 05/17 1600 05/17 0800 05/17 0000 Intake Total 1415 840 600 Output Total 700 275 300 Balance 715 565 300 Intake, IV 375 600 Intake, Oral 1040 240 600 Number 0 1 Bowel Movements Output, Urine 700 275 300 Physical Exam Other Physical Findings: She appears comfortable in no acute distress Lungs are clear Heart regular rhythm with a 1/6 systolic ejection murmur Extremities decreased pain on movement of the left ankle and right elbow; right shoulder tender on palpation with mild edema without erythema, but with decreased range of motion; trace edema both lower extremities Results Last 24 Hours of Lab Results: Laboratory Tests 05/17 05/17 1120 0839 Chemistry Sodium (137 - 145 mmol/L) 136 L Potassium (3.5 - 5.1 mmol/L) 3.3 L Chloride (98 - 107 mmol/L) 108 H Carbon Dioxide (22 - 30 mmol/L) 20 L Anion Gap (5 - 16) 7 BUN (7 - 17 mg/dL) 20 H Creatinine (0.5 - 1.0 mg/dL) 0.8 Estimated GFR (>60 ml/min) > 60 BUN/Creatinine Ratio (7 - 25 %) 25.0 Coagulation PT (9.4 - 12.5 SEC) 12.4 INR (0.90 - 1.19) 1.18 Hematology CBC w Diff MAN DIFF ORDERED WBC (4.8 - 10.8 /CUMM) 11.0 H RBC (4.20 - 5.40 /CUMM) 3.60 L Hgb (12.0 - 16.0 G/DL) 10.6 L Hct (37 - 47 %) 31.2 L MCV (81.0 - 99.0 FL) 86.9 MCH (27.0 - 31.0 PG) 29.5 RDW (11.5 - 14.5 %) 13.6 Plt Count (130 - 400 /CUMM) 127 L MPV (7.4 - 10.4 FL) 8.3 Gran % (42.2 - 75.2 %) 86.0 H Lymphocytes % (20.5 - 51.1 %) 4.0 L Monocytes % (1.7 - 9.3 %) 10.0 H Eosinophils % (0 - 5 %) 0 Basophils % (0.0 - 2.0 %) 0 L Absolute Granulocytes (1.4 - 6.5 /CUMM) 9.4 H Absolute Lymphocytes (1.2 - 3.4 /CUMM) 0.4 L Lymphocytes (%) 9 Absolute Monocytes (0.10 - 0.60 /CUMM) 1.1 H Absolute Eosinophils (0.0 - 0.7 /CUMM) 0 Absolute Basophils (0.0 - 0.2 /CUMM) 0 % Normal PMNs (%) 83 Platelet Estimate (ADEQUATE) DECREASED Polychromasia 1+ Poikilocytosis 1+ Ovalocytes 1+ Lawrence Cells 1+ PUBS MCHC (33.0 - 37.0 G/DL) 33.9 Other Body Source Fluid WBC (0 - 5 /CUMM) 27846 H Fld Mesothelial Cells (%) Fld Total RBCs Counted (0 /CUMM) 295321 H Last 24 Hours of Cameron Results: Blood cultures May 15 positive for Goup B strep Blood cultures May 16 positive for gram-positive cocci in chains Urine culture May 15 greater than 100,000 colonies of Group B strep Right shoulder aspirate May 17 pending Recent Imaging Studies: Abdominal ultrasound May 16 mild ascites with small bilateral pleural effusions Left leg Doppler May 16 negative Echocardiogram, technically limited, negative for any obvious vegetations Assessment/Plan Impression: Group B strep sepsis in a patient status post aortic and mitral valve replacements 2 years ago presenting with inflammation of multiple joints, status post aspiration of the right shoulder earlier today, with over 40,000 white blood cells noted on the cell count. This could suggest a septic joint, possibly secondary to her bacteremia rather than representing the initial source , with no history of trauma, but prosthetic valve endocarditis must still be considered and will need to be ruled out. Her temperatures and white blood cell count are decreased on Vancomycin Day 2 of treatment. Suggestion: 1. Obtain more information regarding her penicillin allergy and antibiotics she has tolerated from her primary care physician 2. Follow-up culture of the recent right shoulder aspiration 3. Would pursue a TREVOR 4. Continue Vancomycin pending above
[2016-05-17 16:05] VITALS: BP 152/80
--- NOTE | 2016-05-17 16:48 | INTERVENTIONAL RADIOLOGY RPT ---
EXAMINATION: Fluoroscopic guided aspiration, right shoulder joint CLINICAL INFORMATION: 85-year-old female with shoulder pain and positive blood cultures. Concern for infected right shoulder joint. COMPARISON: Right shoulder radiographs 05/15/2016 TECHNIQUE: Informed consent was obtained from the patient prior to the procedure. During this process, the procedure and potential alternatives were explained along with the intended outcome and benefits. The risks of the procedure including the possibility of an unsuccessful procedure, as well as the risk of not doing the procedure was discussed. The patient was given the opportunity to ask questions regarding the procedure and appeared competent to make decisions. The signed informed consent form was placed in the medical record. A time out procedure was performed. Following informed consent the patient was placed supine on fluoroscopic table. The right shoulder region was prepped and draped in usual sterile fashion. 1% lidocaine was infiltrated into the skin and subcutaneous tissues. A 20-gauge spinal needle was introduced into the right shoulder joint under fluoroscopic guidance. Approximately 1 mL of blood-tinged fluid was aspirated. 1 mL of Optiray 320 contrast was then injected to confirm intra-articular placement. At this time, approximately 4 mL of sterile saline was injected into the joint and reaspirated attempted. Only an additional approximately 1 mL of dilute, blood-tinged fluid was reaspirated. The needle was removed. Good hemostasis was achieved. A sterile dressing was placed. Aspirated fluid sent for requested analysis. The patient tolerated the procedure well and was discharged from the room in good condition and monitored with instructions. No complications. FLUOROSCOPY TIME: 0.5 minutes. IMPRESSION: Successful fluoroscopic guided right shoulder joint aspiration.
--- NOTE | 2016-05-17 19:51 | NUR ---
BP 178/122. 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
[2016-05-17 20:30] VITALS: BP 160/80
[2016-05-17 22:33] VITALS: BP 148/80
[2016-05-18 06:19] VITALS: BP 148/80
[2016-05-18 09:29] LABS: PT 13.6 SEC (9.4-12.5)
[2016-05-18 09:29] LABS: ABSOLUTE BASOPHIL COUNT 0 /CUMM (0.0-0.2); ABSOLUTE EOSINOPHIL COUNT 0 /CUMM (0.0-0.7); ABSOLUTE GRANULOCYTE CT 8.4 /CUMM (1.4-6.5); ABSOLUTE LYMPH COUNT 0.4 /CUMM (1.2-3.4); BASOPHIL % 0 % (0.0-2.0); EOSINOPHIL % 0.2 % (0-5); GRANULOCYTE % 85.6 % (42.2-75.2); HEMATOCRIT 29.8 % (37-47); MEAN CORPUSCULAR HGB 29.4 PG (27.0-31.0); MEAN CORPUSCULAR HGB CONC 33.9 G/DL (33.0-37.0); MEAN CORPUSCULAR VOLUME 86.7 FL (81.0-99.0); MEAN PLATELET VOLUME 8.5 FL (7.4-10.4); PLATELET COUNT 143 /CUMM (130-400); RBC DISTRIBUTION WIDTH 13.9 % (11.5-14.5); RED BLOOD CELL CT 3.44 /CUMM (4.20-5.40); WHITE BLOOD CELL COUNT 9.9 /CUMM (4.8-10.8)
--- NOTE | 2016-05-18 10:52 | PN- Housestaff ---
KANIKA ARCINIEGA 05/18/16 1045: Subjective Follow-up For: 1. Joint pains #2 nausea and vomiting #3 questionable infectious endocarditis Subjective: Ms. Poe is comfortable this morning. She was more comfortable compared to yesterday. Stated that her pain was adequately controlled. She is less short of breath compared to yesterday. In the last 24 hours, she had a diagnostic arthrocentesis (IR guided) done. Change antibiotics from vancomycin to ampicillin after discussing with Jabari Collins MD. Dr. Suresh (PCP) confirmed via the phone that Ms. Poe is not allergic to ampicillin. Discussed with Jeison Salgado MD. Review of Systems Constitutional: Reports: see HPI. Objective Last 24 Hrs of Vital Signs/I&O Vital Signs Date Time Temp Pulse Resp B/P Pulse O2 O2 Flow FiO2 Ox Delivery Rate 05/18 0619 98.9 95 20 148/80 96 Room Air 05/17 2233 98.4 90 20 148/80 97 Room Air 05/17 2030 160/80 05/17 2030 160/80 05/17 1615 93 152/80 05/17 1605 98.2 93 20 152/80 96 05/17 1600 Room Air 05/17 1216 140/72 05/17 1151 Room Air Intake & Output 05/18 1600 05/18 0800 05/18 0000 Intake Total 400 150 Output Total 200 Balance 400 -50 Intake, IV 200 Intake, Oral 200 150 Output, Urine 200 Physical Exam General Appearance: No Acute Distress Other Physical Findings: General Exam: AAOx3, No acute distress, Skin: No rashes, no breakdown HEENT: PERRLA, EOMI Neck: Supple, No JVD No cervical lymphadenopathy CVS: Reg Rate, Normal S1,S2, No MGR Resp: Normal air entry, no ronchi/rales Abdomen: Soft, No tenderness, Normal Bowel Sounds Neuro: Normal Speech, Strength 5/5 b/l x 4 extremities, Sensation intact, CN III -XII NL, Reflexes 2+ Extremities: No cyanosis, no pedal edema, restriction in mobility in left shoulder joint, and elbow joint. Tenderness on lower spine. Current Medications: Current Medications Sig/Lalo Start time Last Medication Dose Route Stop Time Status Admin Acetaminophen 650 MG Q6P PRN 05/15 1815 AC 05/17 PO 0933 Ampicillin 2,000 MG Q8 05/18 0600 AC 05/18 Sodium Chloride 100 ML IV 0457 Aspirin Buffered 81 MG DAILY 05/16 1000 AC 05/18 PO 0903 Atenolol 12.5 MG TID 05/15 220 AC 05/18 PO 0903 Atorvastatin Calcium 10 MG 1700 05/16 1700 AC 05/17 PO 1615 Donepezil HCl 5 MG QPM 05/15 220 AC 05/17 PO 202 Enoxaparin Sodium 60 MG AT BEDTIME 05/16 2199 AC 05/17 SC 2030 Morphine Sulfate 1 MG ONCE ONE 05/18 0130 DC 05/18 IV 05/18 013 0457 Morphine Sulfate 2 MG ONCE ONE 05/17 2014 DC 05/17 IV 05/17 Potassium Chloride 20 MEQ BID 05/18 1000 AC 05/18 PO 0902 Prednisolone 1 GTT QPM 05/15 220 AC 05/17 OPH 2024 Sodium Chloride 0 .STK-MED ONE 05/17 1118 CAN IV Timolol Maleate 1 GTT BID 05/15 2199 AC 05/18 OPH 0903 Trimethobenzamide HCl 200 MG TID PRN 05/16 0315 AC 05/16 IM 0341 Vancomycin HCl 1,000 MG DAILY 05/16 1000 DC 05/17 Dextrose/Water 250 ML IV 0934 Last 24 Hrs of Lab/Cameron Results Last 24 Hrs of Labs/Mics: Laboratory Tests 05/18/16 1025: PT 13.6 H, INR 1.30 H 05/18/16 0845: Anion Gap 8, Estimated GFR > 60, BUN/Creatinine Ratio 20.0, Uric Acid Pending, CBC w Diff MAN DIFF ORDERED, RBC 3.44 L, MCV 86.7, MCH 29.4, RDW 13.9, MPV 8.5, Gran % 85.6 H, Lymphocytes % 4.0 L, Monocytes % 10.2 H, Eosinophils % 0.2, Basophils % 0 L, Absolute Granulocytes 8.4 H, Segmented Neutrophils 78 H, Band Neutrophils 5, Absolute Lymphocytes 0.4 L, Lymphocytes 5 L, Monocytes 12 H, Absolute Monocytes 1.0 H, Absolute Eosinophils 0, Absolute Basophils 0, Platelet Estimate VERIFIED BY SMEAR, Polychromasia 1+, Poikilocytosis 1+, Ovalocytes 1+, Vilma Cells 1+, PUBS MCHC 33.9 05/17/16 1120: Lymphocytes 9, % Normal PMNs 83, Fluid WBC 74213 H, Fld Mesothelial Cells , Fld Total RBCs Counted 340969 H Microbiology 05/17 1120 BODY FLUID: Body Fluid Culture - RECD 05/17 1120 BODY FLUID: Gram Stain - RECD Assessment/Plan Assessment: Ms Poe is an active woman who has a past medical history of hypertension, rheumatic heart disease, mitral and aortic valve replacements, and is being evaluted for vomiting, and pain in her right upper extremity and left lower extremity x 1 days ago. BC x 4-group B streptococcus Urine cultures- revealed group B streptococcus likely hematogenous spread. Body fluid analysis from right shoulder joint (cyst and no real fluid)-reveal elevated WBC counts in the range of 40,000. No crystals were found. Echocardiogram revealed thickening of bioprosthetic mitral valve. Limited examination. Suggestive of infective endocarditis however TREVOR would be more informative. Below is the problem list and plan: #1 fever, vomiting-Zofran for nausea. Continue to monitor WBC count and serial abdominal exams to be done. If needed may consider a CAT scan abdomen. #2 joint pains- Patient has a history of valve replacement, and infective endocarditis is a possible diagnosis. Also shows ? septic joint in the right shoulder. Blood cultures revealed group B strep making GI source likely possibility that may have seeded valves. Currently on ampicillin 2 g IV every 8. Transesophageal echocardiogram to be done on Tuesday. Sofia Kirkpatrick MD cardiology advising. Spinal tenderness in the lower back-to obtain an MRI with gadolinium to rule out any abscess. #3 due to prophylaxis-Lovenox for DVT prophylaxis and also anti-coagulation for ? prosthetic valve. Unsure, if she has any underlying paroxysmal afib that required AC. Requested records from the [employer]. May have to restart coumadin, while she is being bridged w/ lovenox. Problem List: 1. Leukocytosis Pain Ratin Pain Location: Left shoulder and back Pain Goal: Pain 4 or less Pain Plan: Tylenol when necessary Tomorrow's Labs & Rationales: CBC to monitor for leukocytosis BEP check for potassium VONNIE DUMONT 05/26/16 1057: Jazlyn DAWSON Review Statement Attending Statement Attending Statement: examined this patient, discuss w/resident/PA/WOOD CREW SUPERVISOR, agreed w/resident/PA/WO[employer] CREW SUPERVISOR, reviewed EMR data (avail), discussed with nursing, discussed with case mgmt Attending Assessment/Plan: 85F with PMH HTN, rheumatic heart disease s/p AVR and MVR 2 years ago admitted with right shoulder and left ankle pain and lower back pain, nausea, vomiting, malaise, and generalized weakness. Found to have positive blood cultures - Beta strept group B. WBC trending down. Patient being treated as presumed endocarditis. We will get TREVOR done tomorrow. We will also get MRI of the lumbosacral spine done tomorrow. Urine cultures of the patient is also going betastrep group B . Discussed with infectious disease and we will continue with current antibiotics with IV ampicillin which patient is tolerating well. Patient also has history of atrial fibrillation and is currently on Lovenox. We are holding her Coumadin for planned TREVOR tomorrow. The repeat EKG done today shows atrial fibrillation and no widening of QRS interval compared with prior EKG.
--- NOTE | 2016-05-18 11:41 | PN- Infect Dx ---
Subjective Subjective: Afebrile. She feels improved today but still reports pain and limited range of motion of the right shoulder. Objective Last 24 Hrs of Vital Signs/I&O Vital Signs Date Time Temp Pulse Resp B/P Pulse O2 O2 Flow FiO2 Ox Delivery Rate 05/18 0619 98.9 95 20 148/80 96 Room Air 05/17 2233 98.4 90 20 148/80 97 Room Air 05/17 2030 160/80 05/17 2030 160/80 05/17 1615 93 152/80 05/17 1605 98.2 93 20 152/80 96 05/17 1600 Room Air 05/17 1216 140/72 05/17 1151 Room Air Intake & Output 05/18 1600 05/18 0800 05/18 0000 Intake Total 400 150 Output Total 200 Balance 400 -50 Intake, IV 200 Intake, Oral 200 150 Output, Urine 200 Physical Exam Other Physical Findings: She appears comfortable in no acute distress Lungs are clear Heart regular rhythm with a 1/6 soft ejection murmur Extremities decreased range of motion of the right shoulder, with tenderness on palpation Results Last 24 Hours of Lab Results: Laboratory Tests 05/18 05/18 1025 0845 Chemistry Sodium (137 - 145 mmol/L) 137 Potassium (3.5 - 5.1 mmol/L) 3.5 Chloride (98 - 107 mmol/L) 106 Carbon Dioxide (22 - 30 mmol/L) 23 Anion Gap (5 - 16) 8 BUN (7 - 17 mg/dL) 16 Creatinine (0.5 - 1.0 mg/dL) 0.8 Estimated GFR (>60 ml/min) > 60 BUN/Creatinine Ratio (7 - 25 %) 20.0 Uric Acid (2.5 - 6.2 mg/dL) 5.6 C-Reactive Prot, Quant (<1.0 mg/dL) > 9.0 H Coagulation PT (9.4 - 12.5 SEC) 13.6 H INR (0.90 - 1.19) 1.30 H Hematology CBC w Diff MAN DIFF ORDERED WBC (4.8 - 10.8 /CUMM) 9.9 RBC (4.20 - 5.40 /CUMM) 3.44 L Hgb (12.0 - 16.0 G/DL) 10.1 L Hct (37 - 47 %) 29.8 L MCV (81.0 - 99.0 FL) 86.7 MCH (27.0 - 31.0 PG) 29.4 RDW (11.5 - 14.5 %) 13.9 Plt Count (130 - 400 /CUMM) 143 MPV (7.4 - 10.4 FL) 8.5 Gran % (42.2 - 75.2 %) 85.6 H Lymphocytes % (20.5 - 51.1 %) 4.0 L Monocytes % (1.7 - 9.3 %) 10.2 H Eosinophils % (0 - 5 %) 0.2 Basophils % (0.0 - 2.0 %) 0 L Absolute Granulocytes (1.4 - 6.5 /CUMM) 8.4 H Segmented Neutrophils (42.2 - 75.2 %) 78 H Band Neutrophils (0.0 - 5.0 %) 5 Absolute Lymphocytes (1.2 - 3.4 /CUMM) 0.4 L Lymphocytes (20.5 - 51.1 %) 5 L Monocytes (1.7 - 9.3 %) 12 H Absolute Monocytes (0.10 - 0.60 /CUMM) 1.0 H Absolute Eosinophils (0.0 - 0.7 /CUMM) 0 Absolute Basophils (0.0 - 0.2 /CUMM) 0 Platelet Estimate (ADEQUATE) VERIFIED BY SMEAR Polychromasia 1+ Poikilocytosis 1+ Ovalocytes 1+ Vilma Cells 1+ PUBS MCHC (33.0 - 37.0 G/DL) 33.9 Last 24 Hours of Cameron Results: Blood cultures May 16 positive for Group B strep Right shoulder aspiration May 17 negative Assessment/Plan Impression: Group B strep sepsis/possible endocarditis status post aortic and mitral valve replacements 2 years ago, status post aspiration of the right shoulder joint yesterday, with a significant number of white blood cells noted, but with the culture so far negative. This could suggest a septic joint, possibly secondary to her bacteremia, with no history of trauma to implicate this as the primary source, but prosthetic valve endocarditis must still be considered and will need to be ruled out. She was begun on Ampicillin after further history was obtained indicating that she has tolerated Amoxicillin in the past. Suggestion: 1. Repeat blood cultures 2 today 2. Await TREVOR (apparently scheduled for the a.m.) 3. Follow-up the culture of the recent right shoulder aspiration 4. Continue Ampicillin
--- NOTE | 2016-05-18 14:51 | NUR ---
PHYSICAL THERAPY- CONSULT RECEIVED, CHART REVIEWED. PT W/ TREVOR ORDERED TO R/O INFECTIVE ENDOCARDITIS/VEGETATION. WILL DEFER EVAL UNTIL RESULTS OBTAINED. WILL FOLLOW.
--- NOTE | 2016-05-18 15:04 | PN- Att Addend ---
Attending MD Review Statement Attending Statement Attending MD Statement: examined this patient, discuss w/resident/PA/WINTER INTERN, agreed w/resident/PA/WINTER INTERN, reviewed EMR data (avail) Attending Assessment/Plan: 85F with PMH HTN, rheumatic heart disease s/p AVR and MVR 2 years ago admitted with right shoulder and left ankle pain and lower back pain, nausea, vomiting, malaise, and generalized weakness. Found to have positive blood cultures - Beta strept group B. WBC trending down. Patient being treated as presumed endocarditis. We will get TREVOR done tomorrow. We will also get MRI of the lumbosacral spine done tomorrow. Urine cultures of the patient is also going betastrep group B . Discussed with infectious disease and we will continue with current antibiotics with IV ampicillin which patient is tolerating well. Patient also has history of atrial fibrillation and is currently on Lovenox. We are holding her Coumadin for planned TREVOR tomorrow. The repeat EKG done today shows atrial fibrillation and no widening of QRS interval compared with prior EKG.
[2016-05-18 16:06] VITALS: BP 116/72
--- NOTE | 2016-05-18 18:15 | Cons- Cardiology ---
General Information and HPI Consulting Request Date of Consult: 05/18/16 Requested By: GODWIN SHEETS MD Reason for Consult: Possible endocarditis History of Present Illness: The patient is an 85-year-old female with history of bioprosthetic aortic and mitral valve replacements in 2014 for rheumatic heart disease, paroxysmal atrial fibrillation and atrial flutter, anticoagulated on warfarin, hypertension who presented with complaint of generalized weakness, with pain in her right elbow, left ankle, and back. She continues to have her back pain, and is currently uncomfortable. She was noted to spike a fever to 101.5F. She was noted to have elevated white blood count. Her most recent dental work was 2 months ago, and she notes that she took an antibiotic for prophylaxis. No chest pain. No syncope. No lightheadedness or dizziness. No nausea or vomiting. No palpitations. Her trumpet teacher is Dr. Kushal Sheth. Allergies/Medications Allergies: Coded Allergies: amoxicillin (From AUGMENTIN) (UNKNOWN 05/15/16) clavulanic acid (From AUGMENTIN) (UNKNOWN 05/15/16) codeine (STOMACH CRAMPS 05/15/16) erythromycin base (STOMACH CRAMPS 05/15/16) hydrocodone (From VICODIN) (STOMACH CRAMPS 05/15/16) zolpidem (From AMBIEN) (HALLUCINATIONS 05/15/16) Home Med List: Aspirin (Ecotrin*) 81 MG TABLET.DR 1 TAB PO DAILY HEART HEALTH (Reported) Atenolol 25 MG TABLET 0.5 TAB PO TID HEART (Reported) Brimonidine Tartrate/Timolol (Combigan Eye Drops) 0.2 %-0.5 % DROPS 1 DROP OP BID EYE (Reported) Donepezil HCl 5 MG TABLET 1 TAB PO QPM DEMENTIA (Reported) Estradiol 0.5 MG TABLET 1 TAB PO Tuesday HORMONE (Reported) Hydrochlorothiazide 25 MG TABLET 1 TAB PO DAILY WATER PILL (Reported) Multivitamin (Daily Multiple Vitamin) 1 EACH TABLET 1 TAB PO DAILY SUPPLEMENT (Reported) Potassium Chloride 10 MEQ TAB.ER.PRT 1 TAB PO DAILY SUPPLEMENT (Reported) Prednisolone Acetate 1 % DROPS.SUSP 1 GTT OPH QPM EYE (Reported) Simvastatin (Simvastatin*) 20 MG TABLET 1 TAB PO QPM CHOLESTEROL (Reported) Warfarin Sodium 2 MG TABLET 1 TAB PO 1700 BLOOD THINNER (Reported) Current Medications: Current Medications Sig/Lalo Start time Last Medication Dose Route Stop Time Status Admin Acetaminophen 650 MG Q6P PRN 05/15 1815 AC 05/17 PO 0933 Ampicillin 2,000 MG Q8 05/18 0600 AC 05/18 Sodium Chloride 100 ML IV 1435 Aspirin Buffered 81 MG DAILY 05/16 1000 AC 05/18 PO 0903 Atenolol 12.5 MG TID 05/15 2200 AC 05/18 PO 1731 Atorvastatin Calcium 10 MG 1700 05/16 1700 AC 05/18 PO 1730 Donepezil HCl 5 MG QPM 05/15 2200 AC 05/17 PO 2025 Enoxaparin Sodium 60 MG AT BEDTIME 05/16 220 AC 05/17 SC 2030 Morphine Sulfate 1 MG BID PRN 05/18 1130 AC 05/18 IV 174 Morphine Sulfate 1 MG ONCE ONE 05/18 0130 DC 05/18 IV 05/18 0131 0457 Morphine Sulfate 2 MG ONCE ONE 05/17 2014 DC 05/17 IV 05/17 2016 2019 Potassium Chloride 20 MEQ BID 05/18 1000 AC 05/18 PO 0902 Prednisolone 1 GTT QPM 05/15 2200 AC 05/17 OPH 2025 Timolol Maleate 1 GTT BID 05/15 2200 AC 05/18 OPH 0903 Trimethobenzamide HCl 200 MG TID PRN 05/16 0315 AC 05/16 IM 0341 Review of Systems Review of Systems: No rash. No tremor. No melena. No diaphoresis. No hemoptysis. All other systems were reviewed, and were noted to be negative. Past History Travel History Traveled to [place] past 21 day No Medical History Blood Transfusion Hx: No Neurological: HALLUCINATIONS EENT: glaucoma Cardiovascular: hypertension, hyperlipidemia, Rheumatic heart disease Respiratory: NONE Gastrointestinal: NONE Hepatic: NONE Renal: NONE Musculoskeletal: NONE Psychiatric: NONE Endocrine: NONE Blood Disorders: NONE Cancer(s): basal cell carcinoma CLIENT CARE COORDINATOR/Reproductive: NONE Surgical History Surgical History: cataract removal, status post mitral valve replacement 2 years prior to admission status post aortic valve replacement 2 years prior to admission Family History Relations & Conditions If Any: Relation not specified for: *No pertinent family history Psychosocial History Where Do You Live? Home Services at Home: None Smoking Status: Former Smoker ETOH Use: occasional use Illicit Drug Use: denies illicit drug use Exam & Diagnostic Data Vital Signs and I&O Vital Signs Date Time Temp Pulse Resp B/P Pulse O2 O2 Flow FiO2 Ox Delivery Rate 05/18 1731 96 16 122/82 05/18 1606 98.9 84 14 116/72 96 Room Air 05/18 1557 Room Air 05/18 0800 96 Room Air Room Air 05/18 0619 98.9 95 20 148/80 96 Room Air 05/17 2233 98.4 90 20 148/80 97 Room Air 05/17 2029 160/80 05/17 2029 160/80 Intake & Output 05/18 1600 05/18 0805/18 0000 05/17 1600 05/17 0805/17 0000 Intake Total 1030 338 133 6791 840 600 Output Total 600 200 700 275 300 Balance 430 400 -50 715 565 300 Intake, IV 130 200 375 600 Intake, Oral 900 239 058 5073 240 600 Number 0 1 Bowel Movements Output, Urine 600 200 700 275 300 Patient 120 lb Weight Physical Exam: Gen: The patient is in no acute distress HEENT: Normal nose, ears, and oropharynx. Pupils equal bilaterally. Conjunctiva normal. Neck: Supple with no JVD, no masses, and no thyromegaly Lungs: Clear to auscultation with normal respiratory effort Heart: RRR, S1, S2, 1/6 systolic murmur. Trace peripheral edema, 21+ pulses in the lower extremities bilaterally Abdomen: Soft, nontender, no masses. No hepatomegaly. No splenomegaly Extremities: No clubbing or cyanosis. Normal muscle strength in the upper and lower extremities Skin: Normal skin turgor with no skin ulcers or lesions noted. Neuro: Cranial nerves intact. Sensation intact Psych: Alert and oriented 3 with appropriate affect Labs/Cameron Results: Laboratory Tests 05/18 05/18 05/17 1025 0845 1120 Chemistry Sodium (137 - 145 mmol/L) 137 Potassium (3.5 - 5.1 mmol/L) 3.5 Chloride (98 - 107 mmol/L) 106 Carbon Dioxide (22 - 30 mmol/L) 23 Anion Gap (5 - 16) 8 BUN (7 - 17 mg/dL) 16 Creatinine (0.5 - 1.0 mg/dL) 0.8 Estimated GFR (>60 ml/min) > 60 BUN/Creatinine Ratio (7 - 25 %) 20.0 Uric Acid (2.5 - 6.2 mg/dL) 5.6 C-Reactive Prot, Quant (<1.0 mg/dL) > 9.0 H Coagulation PT (9.4 - 12.5 SEC) 13.6 H INR (0.90 - 1.19) 1.30 H Hematology CBC w Diff MAN DIFF ORDERED WBC (4.8 - 10.8 /CUMM) 9.9 RBC (4.20 - 5.40 /CUMM) 3.44 L Hgb (12.0 - 16.0 G/DL) 10.1 L Hct (37 - 47 %) 29.8 L MCV (81.0 - 99.0 FL) 86.7 MCH (27.0 - 31.0 PG) 29.4 RDW (11.5 - 14.5 %) 13.9 Plt Count (130 - 400 /CUMM) 143 MPV (7.4 - 10.4 FL) 8.5 Gran % (42.2 - 75.2 %) 85.6 H Lymphocytes % (20.5 - 51.1 %) 4.0 L Monocytes % (1.7 - 9.3 %) 10.2 H Eosinophils % (0 - 5 %) 0.2 Basophils % (0.0 - 2.0 %) 0 L Absolute Granulocytes (1.4 - 6.5 /CUMM) 8.4 H Segmented Neutrophils (42.2 - 75.2 %) 78 H Band Neutrophils (0.0 - 5.0 %) 5 Absolute Lymphocytes (1.2 - 3.4 /CUMM) 0.4 L Lymphocytes (20.5 - 51.1 %) 5 L 9 Monocytes (1.7 - 9.3 %) 12 H Absolute Monocytes (0.10 - 0.60 /CUMM) 1.0 H Absolute Eosinophils (0.0 - 0.7 /CUMM) 0 Absolute Basophils (0.0 - 0.2 /CUMM) 0 % Normal PMNs (%) 83 Platelet Estimate (ADEQUATE) VERIFIED BY SMEAR Polychromasia 1+ Poikilocytosis 1+ Ovalocytes 1+ [employer] Cells 1+ PUBS MCHC (33.0 - 37.0 G/DL) 33.9 Other Body Source Fluid WBC (0 - 5 /CUMM) 96466 H Fld Mesothelial Cells (%) Fld Total RBCs Counted (0 /CUMM) 286072 H 05/17 0839 Chemistry Sodium (137 - 145 mmol/L) 136 L Potassium (3.5 - 5.1 mmol/L) 3.3 L Chloride (98 - 107 mmol/L) 108 H Carbon Dioxide (22 - 30 mmol/L) 20 L Anion Gap (5 - 16) 7 BUN (7 - 17 mg/dL) 20 H Creatinine (0.5 - 1.0 mg/dL) 0.8 Estimated GFR (>60 ml/min) > 60 BUN/Creatinine Ratio (7 - 25 %) 25.0 Coagulation PT (9.4 - 12.5 SEC) 12.4 INR (0.90 - 1.19) 1.18 Hematology CBC w Diff MAN DIFF ORDERED WBC (4.8 - 10.8 /CUMM) 11.0 H RBC (4.20 - 5.40 /CUMM) 3.60 L Hgb (12.0 - 16.0 G/DL) 10.6 L Hct (37 - 47 %) 31.2 L MCV (81.0 - 99.0 FL) 86.9 MCH (27.0 - 31.0 PG) 29.5 RDW (11.5 - 14.5 %) 13.6 Plt Count (130 - 400 /CUMM) 127 L MPV (7.4 - 10.4 FL) 8.3 Gran % (42.2 - 75.2 %) 86.0 H Lymphocytes % (20.5 - 51.1 %) 4.0 L Monocytes % (1.7 - 9.3 %) 10.0 H Eosinophils % (0 - 5 %) 0 Basophils % (0.0 - 2.0 %) 0 L Absolute Granulocytes (1.4 - 6.5 /CUMM) 9.4 H Absolute Lymphocytes (1.2 - 3.4 /CUMM) 0.4 L Absolute Monocytes (0.10 - 0.60 /CUMM) 1.1 H Absolute Eosinophils (0.0 - 0.7 /CUMM) 0 Absolute Basophils (0.0 - 0.2 /CUMM) 0 Platelet Estimate (ADEQUATE) DECREASED Polychromasia 1+ Poikilocytosis 1+ Ovalocytes 1+ Vilma Cells 1+ PUBS MCHC (33.0 - 37.0 G/DL) 33.9 Blood culture: Positive for group B strep. Urine culture: Positive for group B step. Diagnostic Data EKG Results EKG tracings are independently reviewed. EKG from 05/15/16 reveals normal sinus rhythm at 90, nonspecific T-wave abnormality in the lateral leads, borderline prolonged QT interval EKG from 05/18/16 reveals atrial fibrillation with ventricular response of 98 CXR Results Chest x-ray 05/15/16: Cardiomegaly. Left basilar opacity, consider atelectasis, pneumonia or sequela of aspiration. Suspected small left pleural effusion. Mild central vascular prominence. Other Results Echocardiogram 05/17/16: 1. This was a technically difficult examination. 2. The aortic valve was not well visualized anatomically. THere is an elevated gradient of 30 mmHg across the valve. If clinically indicated, a TREVOR would allow better assessment of aortic valve structure and function. 3. A bioprosthetic mitral valve is present. Thickening of the bioprosthetic valve leaflets is present. On the apical views, there appears to be prolapse or partial eversion of the leaflets present. The possibility of a vegetation cannot be excluded. Minimal to mild mitral insufficiency appears to be present. Left atrial enlargement is present. 4. There is no significant pericardial fluid present. 5. The left ventricular chamber size and systolic function appear normal. Abnormal septal motion is present. The ejection fraction is normal.. Mobile echoes are noted in the LV cavity which likely represent residual chordal structures. 6. Mild enlargement of the right heart chambers is present with moderate tricuspid insufficiency and pulmonary hypertension with an estimated RV systolic pressure of 52 mmHg. 7. A TREVOR is suggested in this patient to better assess the anatomy of the aortic and mitral valves and to better exclude the possibility of vegetative lesions Assessment/Plan Assessment/Plan The patient is an 85 room female with history of bioprosthetic mitral and aortic valve replacements 2 years ago, paroxysmal atrial fibrillation and atrial flutter presenting with multiple aches and pains, with generalized weakness. She is found to have blood and urine cultures positive for group B strep. She was in sinus rhythm, and is now in atrial fibrillation. Recommendations: * IV antibiotic therapy as per ID * Nothing by mouth after midnight * TREVOR to evaluate for possible endocarditis given the bacteremia with presence of 2 prosthetic valves. * Continue atenolol and aspirin. * INR is noted to be therapeutic in the setting of atrial fibrillation. The patient is on Lovenox, however she is not on the full treatment dose. Would give either Lovenox 1 mg/kg every 12 hours, or IV heparin per protocol until INR is greater than 2.0. * Anticoagulation does not need to be held for TREVOR. Consult Acknowledgment - Thank you for your consult request.
[2016-05-19 00:02] VITALS: BP 110/66
--- NOTE | 2016-05-19 05:50 | PN- Housestaff ---
Subjective Follow-up For: 1. vomting, joint pains 2. infective endocarditis ? Complaints: no complaints Subjective: The patient was sleeping this morning when I walked into her room. Complains of pain in her right upper extremity, which is still not improved. BP remained stable. She was afebrile. She is due to be taken to get the TREVOR this am, for which she was kept NPO. Review of Systems Constitutional: Reports: see HPI. Objective Last 24 Hrs of Vital Signs/I&O Vital Signs Date Time Temp Pulse Resp B/P Pulse O2 O2 Flow FiO2 Ox Delivery Rate 05/19 0002 97.5 86 20 110/66 96 Room Air 05/18 2153 84 118/70 05/18 1731 96 16 122/82 05/18 1606 98.9 84 14 116/72 96 Room Air 05/18 1557 Room Air 05/18 0800 96 Room Air Room Air 05/18 0619 98.9 95 20 148/80 96 Room Air Intake & Output 05/19 0800 05/19 0000 05/18 1600 Intake Total 960 1030 Output Total 600 650 600 Balance -600 310 430 Intake, IV 130 Intake, Oral 960 900 Output, Urine 600 650 600 Physical Exam General Appearance: No Acute Distress Other Physical Findings: General Exam: AAOx3, No acute distress, Skin: No rashes, no breakdown HEENT: PERRLA, EOMI Neck: Supple, No JVD No cervical lymphadenopathy CVS: Reg Rate, Normal S1,S2, Systolic murmur. Resp: Normal air entry, no ronchi/rales Abdomen: Soft, No tenderness, Normal Bowel Sounds Neuro: Normal Speech, Strength 5/5 b/l x 4 extremities, Sensation intact, CN III -XII NL, Reflexes 2+ Extremities: No cyanosis, pedal edema, restriction of activity of LUE at the shoulder joint, joint tenderness at the left ankle joint. Current Medications: Current Medications Sig/Lalo Start time Last Medication Dose Route Stop Time Status Admin Acetaminophen 650 MG .STK-MED ONE 05/18 1926 DC PO 05/18 1927 Acetaminophen 650 MG Q6P PRN 05/15 1815 AC 05/19 PO 0123 Ampicillin 2,000 MG Q8 05/18 0600 AC 05/18 Sodium Chloride 100 ML IV 2214 Aspirin Buffered 81 MG DAILY 05/16 1000 AC 05/18 PO 0903 Atenolol 12.5 MG TID 05/15 220 AC 05/18 PO 2153 Atorvastatin Calcium 10 MG 1700 05/16 1700 AC 05/18 PO 1730 Donepezil HCl 5 MG QPM 05/15 2199 AC 05/18 PO 2150 Enoxaparin Sodium 60 MG AT BEDTIME 05/16 2199 AC 05/18 SC 2152 Morphine Sulfate 1 MG BID PRN 05/18 1130 AC 05/18 IV 1741 Potassium Chloride 20 MEQ BID 05/18 1000 AC 05/18 PO 2150 Prednisolone 1 GTT QPM 05/15 2199 AC 05/18 OPH 2153 Timolol Maleate 1 GTT BID 05/15 220 AC 05/18 OPH 2150 Trimethobenzamide HCl 200 MG TID PRN 05/16 0315 AC 05/16 IM 0341 Last 24 Hrs of Lab/Cameron Results Last 24 Hrs of Labs/Mics: Laboratory Tests 05/18/16 1025: PT 13.6 H, INR 1.30 H 05/18/16 0845: Anion Gap 8, Estimated GFR > 60, BUN/Creatinine Ratio 20.0, Uric Acid 5.6, C- Reactive Prot, Quant > 9.0 H, CBC w Diff MAN DIFF ORDERED, RBC 3.44 L, MCV 86.7, MCH 29.4, RDW 13.9, MPV 8.5, Gran % 85.6 H, Lymphocytes % 4.0 L, Monocytes % 10.2 H, Eosinophils % 0.2, Basophils % 0 L, Absolute Granulocytes 8.4 H, Segmented Neutrophils 78 H, Band Neutrophils 5, Absolute Lymphocytes 0.4 L, Lymphocytes 5 L, Monocytes 12 H, Absolute Monocytes 1.0 H, Absolute Eosinophils 0, Absolute Basophils 0, Platelet Estimate VERIFIED BY SMEAR, Polychromasia 1+, Poikilocytosis 1+, Ovalocytes 1+, Vilma Cells 1+, PUBS MCHC 33.9 Microbiology 05/18 1400 BLOOD: Blood Culture - RECD 05/18 1400 BLOOD: Blood Culture - RECD Assessment/Plan Assessment: Ms Poe is an active woman who has a past medical history of hypertension, rheumatic heart disease, mitral and aortic valve replacements, and is being evaluted for vomiting, and pain in her right upper extremity and left lower extremity x 1 days ago. BC x 4-group B streptococcus Urine cultures- revealed group B streptococcus likely hematogenous spread. Body fluid analysis from right shoulder joint (cyst and no real fluid)-reveal elevated WBC counts in the range of 40,000. No crystals were found. Cultures remained negative so far. Echocardiogram revealed thickening of bioprosthetic mitral valve. Limited examination. Suggestive of infective endocarditis however TREVOR would be more informative. Await the results. Below is the problem list and plan: #1 fever, vomiting-Zofran for nausea. Continue to monitor WBC count and serial abdominal exams to be done. #2 joint pains- Patient has a history of valve replacement, and infective endocarditis is a possible diagnosis. Also shows ? septic joint in the right shoulder, but the WBC counts are not above [id number]. Blood cultures revealed group B strep making GI source likely possibility that may have seeded valves. Currently on ampicillin 2 g IV every 8. Transesophageal echocardiogram to be done today, and await results. Sofia Kirkpatrick MD cardiology advising. Spinal tenderness in the lower back-to obtain an MRI with gadolinium to rule out any abscess. Pain management w/ morphine(dose has been increased), and lidoderm patch. #3 Bqmw-[id number]-Pjgqqcu for DVT prophylaxis and also anti-coagulation for paroxysmal atrial fibriallation. Cardiology records in the chart. To restart coumadin in the am. Problem List: 1. Leukocytosis Pain Ratin Pain Location: left shoulder lower back Pain Goal: Pain 4 or less Pain Plan: morphine tylenol lidoderm patch Tomorrow's Labs & Rationales: cbc- monitor leucocytosis bep inr
[2016-05-19 08:10] VITALS: BP 144/84
[2016-05-19 08:25] VITALS: BP 138/100
[2016-05-19 08:28] LABS: PT 14.7 SEC (9.4-12.5)
[2016-05-19 08:34] LABS: ABSOLUTE BASOPHIL COUNT 0 /CUMM (0.0-0.2); ABSOLUTE EOSINOPHIL COUNT 0.1 /CUMM (0.0-0.7); ABSOLUTE LYMPH COUNT 0.5 /CUMM (1.2-3.4); BASOPHIL % 0.1 % (0.0-2.0); HEMATOCRIT 31.8 % (37-47); MEAN CORPUSCULAR HGB 29.3 PG (27.0-31.0); MEAN CORPUSCULAR HGB CONC 33.8 G/DL (33.0-37.0); MEAN CORPUSCULAR VOLUME 86.7 FL (81.0-99.0); MEAN PLATELET VOLUME 8.1 FL (7.4-10.4); PLATELET COUNT 171 /CUMM (130-400); RBC DISTRIBUTION WIDTH 13.9 % (11.5-14.5); RED BLOOD CELL CT 3.66 /CUMM (4.20-5.40); WHITE BLOOD CELL COUNT 7.6 /CUMM (4.8-10.8)
--- NOTE | 2016-05-19 13:29 | PN- Cardiology ---
Subjective Subjective: Clinically, the patient is stable. She complains of dry mouth since she has been nothing by mouth for the TREVOR. No other new symptoms. Objective Vital Signs and I&Os Vital Signs Date Time Temp Pulse Resp B/P Pulse O2 O2 Flow FiO2 Ox Delivery Rate 05/19 08 98.2 106 20 138/100 98 Room Air 05/19 0810 144/84 05/19 0002 97.5 86 20 110/66 96 Room Air 05/18 2153 84 118/70 05/18 1731 96 16 122/82 05/18 1606 98.9 84 14 116/72 96 Room Air 05/18 1557 Room Air Intake & Output 05/19 1600 05/19 0800 05/19 0000 05/18 1600 05/18 0800 05/18 0000 Intake Total 037 148 4279 400 150 Output Total 600 650 600 200 Balance -260 310 430 400 -50 Intake, IV 100 130 200 Intake, Oral 240 960 900 200 150 Output, Urine 600 650 600 200 Current Medications: Current Medications Sig/Lalo Start time Last Medication Dose Route Stop Time Status Admin Acetaminophen 650 MG .STK-MED ONE 05/19 0041 DC PO 05/19 0042 Acetaminophen 650 MG .STK-MED ONE 05/18 1927 DC PO 05/18 1928 Acetaminophen 650 MG Q6P PRN 05/15 1815 AC 05/19 PO 0123 Ampicillin 2,000 MG Q8 05/18 0600 AC 05/19 Sodium Chloride 100 ML IV 0603 Aspirin Buffered 81 MG DAILY 05/16 1000 AC 05/18 PO 0903 Atenolol 12.5 MG TID 05/15 2200 AC 05/18 PO 2153 Atorvastatin Calcium 10 MG 1700 05/16 1700 AC 05/18 PO 1730 Donepezil HCl 5 MG QPM 05/15 2200 AC 05/18 PO 2150 Enoxaparin Sodium 50 MG BID 05/19 1000 AC SC Enoxaparin Sodium 60 MG AT BEDTIME 05/16 2200 DC 05/18 SC 2152 Lidocaine 1 PAT DAILY 05/19 1027 AC EXT Morphine Sulfate 2 MG BID PRN 05/19 0945 AC IV Morphine Sulfate 1 MG BID PRN 05/18 1130 DC 05/19 IV 0603 Potassium Chloride 10 MEQ Q1H 05/19 0915 DC 05/19 IV 05/19 1016 1041 Potassium Chloride 20 MEQ BID 05/18 1000 AC 05/18 PO 2150 Prednisolone 1 GTT QPM 05/15 2199 AC 05/18 OPH 2153 Timolol Maleate 1 GTT BID 05/15 2199 AC 05/18 OPH 2150 Trimethobenzamide HCl 200 MG TID PRN 05/16 0315 AC 05/16 IM 0341 Results Last 48 Hrs of Labs/Mics: Laboratory Tests 05/19/16 0650: Anion Gap 8, Estimated GFR > 60, BUN/Creatinine Ratio 20.0, PT 14.7 H, INR 1.40 H, CBC w Diff NO MAN DIFF REQ, RBC 3.66 L, MCV 86.7, MCH 29.3, RDW 13.9, MPV 8.1, Gran % 79.0 H, Lymphocytes % 6.6 L, Monocytes % 13.3 H, Eosinophils % 1.0, Basophils % 0.1, Absolute Granulocytes 6.0, Absolute Lymphocytes 0.5 L, Absolute Monocytes 1.0 H, Absolute Eosinophils 0.1, Absolute Basophils 0, PUBS MCHC 33.8 05/18/16 1025: PT 13.6 H, INR 1.30 H 05/18/16 0845: Anion Gap 8, Estimated GFR > 60, BUN/Creatinine Ratio 20.0, Uric Acid 5.6, C- Reactive Prot, Quant > 9.0 H, CBC w Diff MAN DIFF ORDERED, RBC 3.44 L, MCV 86.7, MCH 29.4, RDW 13.9, MPV 8.5, Gran % 85.6 H, Lymphocytes % 4.0 L, Monocytes % 10.2 H, Eosinophils % 0.2, Basophils % 0 L, Absolute Granulocytes 8.4 H, Segmented Neutrophils 78 H, Band Neutrophils 5, Absolute Lymphocytes 0.4 L, Lymphocytes 5 L, Monocytes 12 H, Absolute Monocytes 1.0 H, Absolute Eosinophils 0, Absolute Basophils 0, Platelet Estimate VERIFIED BY SMEAR, Polychromasia 1+, Poikilocytosis 1+, Ovalocytes 1+, Vilma Cells 1+, PUBS MCHC 33.9 Assessment/Plan Assessment/Plan Assessment: 1. Group B Strep bacteremia 2. Aortic and mitral prosthetic valves 3. PAF Recommendations: - Patient is NPO for TREVOR today. - Procedure discussed with the patient. Questions answered. Patient agrees to proceed. - Further plans after the TREVOR Continue telemetry? Yes
--- NOTE | 2016-05-19 13:31 | NUR ---
Physical Therapy: Cx 2/2 patient off floor for diagnostic imaging. Will attempt again tomorrow.
--- NOTE | 2016-05-19 13:55 | PN- Infect Dx ---
Subjective Subjective: Afebrile. She complains of low back pain. Objective Last 24 Hrs of Vital Signs/I&O Vital Signs Date Time Temp Pulse Resp B/P Pulse O2 O2 Flow FiO2 Ox Delivery Rate 05/19 0825 98.2 106 20 138/100 98 Room Air 05/19 0810 144/84 05/19 0002 97.5 86 20 110/66 96 Room Air 05/18 2153 84 118/70 05/18 1731 96 16 122/82 05/18 1606 98.9 84 14 116/72 96 Room Air 05/18 1557 Room Air Intake & Output 05/19 1600 05/19 0800 05/19 0000 Intake Total 340 960 Output Total 600 650 Balance -260 310 Intake, IV 100 Intake, Oral 240 960 Output, Urine 600 650 Physical Exam Other Physical Findings: She is mildly uncomfortable secondary to the pain but in no acute distress Lungs are clear Heart regular rhythm with a 1/6 systolic murmur Extremities decreased range of motion right shoulder, with tenderness on palpation; left ankle and right elbow with no signs of inflammation and with normal range of motion Results Last 24 Hours of Lab Results: Laboratory Tests 05/19 0650 Chemistry Sodium (137 - 145 mmol/L) 137 Potassium (3.5 - 5.1 mmol/L) 3.4 L Chloride (98 - 107 mmol/L) 104 Carbon Dioxide (22 - 30 mmol/L) 25 Anion Gap (5 - 16) 8 BUN (7 - 17 mg/dL) 14 Creatinine (0.5 - 1.0 mg/dL) 0.7 Estimated GFR (>60 ml/min) > 60 BUN/Creatinine Ratio (7 - 25 %) 20.0 Coagulation PT (9.4 - 12.5 SEC) 14.7 H INR (0.90 - 1.19) 1.40 H Hematology CBC w Diff NO MAN DIFF REQ WBC (4.8 - 10.8 /CUMM) 7.6 RBC (4.20 - 5.40 /CUMM) 3.66 L Hgb (12.0 - 16.0 G/DL) 10.7 L Hct (37 - 47 %) 31.8 L MCV (81.0 - 99.0 FL) 86.7 MCH (27.0 - 31.0 PG) 29.3 RDW (11.5 - 14.5 %) 13.9 Plt Count (130 - 400 /CUMM) 171 MPV (7.4 - 10.4 FL) 8.1 Gran % (42.2 - 75.2 %) 79.0 H Lymphocytes % (20.5 - 51.1 %) 6.6 L Monocytes % (1.7 - 9.3 %) 13.3 H Eosinophils % (0 - 5 %) 1.0 Basophils % (0.0 - 2.0 %) 0.1 Absolute Granulocytes (1.4 - 6.5 /CUMM) 6.0 Absolute Lymphocytes (1.2 - 3.4 /CUMM) 0.5 L Absolute Monocytes (0.10 - 0.60 /CUMM) 1.0 H Absolute Eosinophils (0.0 - 0.7 /CUMM) 0.1 Absolute Basophils (0.0 - 0.2 /CUMM) 0 PUBS MCHC (33.0 - 37.0 G/DL) 33.8 Last 24 Hours of Cameron Results: Blood cultures 2 May 18 negative Right shoulder aspiration May 17 negative Recent Imaging Studies: TREVOR negative for any vegetations Assessment/Plan Impression: Group B strep sepsis of unclear source in a patient status post mitral and aortic valve replacements, with TREVOR negative, making endocarditis unlikely. The aspiration of her right shoulder joint 2 days ago did reveal a significant number of white blood cells, but the culture remains negative. Her back pain could suggest seeding of the spine and she is scheduled for an MRI. She remains afebrile with a normal white blood cell count now on Ampicillin Day 3 of treatment. The positive urine culture likely represents seeding from the bacteremia as she had no urinary symptoms and her urinalysis only revealed 1-3 white blood cells. Suggestion: 1. Await MRI of the lumbosacral spine 2. Follow-up the final culture of the recent right shoulder aspiration 3. Continue Ampicillin
--- NOTE | 2016-05-19 15:29 | ECHOCARDIOGRAM REPORT ---
LB ALVARADO Age: 85 : Gender: F Exam Date: 05/19/2016 11:57 Exam Location: 2 [address] Ht (in): 59 Wt (lb): 124 BSA: 1.54 BP: 145 / 102 Ordering Physician: MERRICK ARCINIEGA MD Referring Physician: MERRICK ARCINIEGA MD Technologist: Brian Wisdom RDCS Room Number: 217-1 Indications: INFECTIVE ENDOCARDITIS Rhythm: Atrial fibrillation Technical Quality: Good Medications Lidocaine [place]. Propofol administered by Anesthesiology. Ease of Transducer Insertion No Difficulty Complications None. Technical Difficulty FINDINGS Left Ventricle Normal size left ventricle. No obvious regional wall motion abnormalities. Left ventricular wall thickness increased. Normal left ventricular ejection fraction estimated at 55-60%. Right Ventricle Right ventricle at upper limits of normal. Right Atrium Mild right atrial dilatation. Left Atrium Left atrial dilatation. LA Appendage Normal left atrial appendage. Spontaneous echo contrast seen in the left atrial appendage. IA Septum Patent foramen ovale. Mitral Valve Normally functioning prosthetic mitral valve. Bioprosthetic mitral valve. Trace to mild mitral regurgitation. Aortic Valve Normally functioning prosthetic aortic valve. Bioprosthetic aortic valve. Trace prosthetic aortic valve regurgitation. Tricuspid Valve Tricuspid valve not well visualized, grossly normal. Mild-to- moderate tricuspid regurgitation. Pulmonic Valve Pulmonic valve not well visualized, grossly normal. Trace to mild pulmonic regurgitation. Pericardium Small pericardial effusion. Left pleural effusion. Great Vessels Normal size aortic root and proximal ascending aorta. Grade II plaque seen in the aortic arch. Grade III plaque seen in the descending aorta. CONCLUSIONS 1. There are no vegetative lesions detected on this examination. 2. A normally functioning bioprosthetic aortic valve is present. Minimal central aortic insufficiency is noted. 3. A normally functioning bioprosthetic mitral valve is present with minimal mitral insufficiency. 4. A very small pericardial effusion is present. 5. The left atrium is enlarged with moderate enlargement of the left atrial appendage. The appendage is hypokinetic and 2-3+ spontaneous contrast is present with no evidence of thrombus. 6. The pulmonary venous anatomy is normal bilaterally with normal doppler profiles. 7. The left ventricular chamber size is normal with mild concentric hypertrophy and a normal ejection fraction. 8. A left pleural effusion is present. 9. Mild enlargement of the right heart chambers is present with mild to moderate tricuspid insufficiency and mild pulmonic insufficiency. 10. A PFO is present with a very small right to left shunt detected by agitated saline contrast injection. 11. Grade II to III atheromatous plaque is present in the thoracic aorta. Sofia Kirkpatrick M.D. (Electronically Signed) Final Date: 19 May 2016 15:28 MEASUREMENTS (Male / Female) Normal Values
--- NOTE | 2016-05-19 16:30 | PN- Att Addend ---
Attending MD Review Statement Attending Statement Attending MD Statement: examined this patient, discuss w/resident/PA/RECORD TESTER, agreed w/resident/PA/RECORD TESTER, reviewed EMR data (avail), discussed w/nursing, discussed w/ case mgmt Attending Assessment/Plan: 85F with PMH HTN, rheumatic heart disease s/p AVR and MVR 2 years ago with bioprosthetic valve admitted with right shoulder and left ankle pain and lower back pain, nausea, vomiting, malaise, and generalized weakness. Found to have positive blood cultures - Beta strept group B. WBC trending down. Patient being treated as presumed endocarditis. TREVOR done today negative for endocarditis. We will await the results of the MRI of the lumbosacral spine done today to further evaluate for the source. Urine cultures of the patient is also going betastrep group B . Discussed with infectious disease and we will continue with current antibiotics with IV ampicillin which patient is tolerating well. Patient also has history of atrial fibrillation and is currently on Lovenox. We are holding her Coumadin for now and if MRI of the spine is negative, will start her back on coumadin. d/w pt the care plan. Morphine dose increased for better pain control. Still has rt shoulder pain with limited ROM.
[2016-05-20 00:36] VITALS: BP 152/84
--- NOTE | 2016-05-20 06:03 | PN- Housestaff ---
KANIKA ARCINIEGA 05/20/16 0602: Subjective Follow-up For: 1. Bacteremia Subjective: The patient was still experiencing pain in her lower back. Pain was still inadequately controlled despite giving her morphine. Vitals were stable overnight. MAXIMUM TEMPERATURE 99.1. An MRI could not be done, as the patient was claustrophobic. Review of Systems Constitutional: Reports: see HPI. Objective Last 24 Hrs of Vital Signs/I&O Vital Signs Date Time Temp Pulse Resp B/P Pulse O2 O2 Flow FiO2 Ox Delivery Rate 05/20 0036 99.1 92 20 152/84 96 05/19 1616 98.2 97 96 Room Air 05/19 1541 104 158/98 05/19 1439 Room Air 05/19 0825 98.2 106 20 138/100 98 Room Air 05/19 0810 144/84 Intake & Output 05/20 0800 05/20 0000 05/19 1600 Intake Total 390 600 Output Total 300 400 Balance 90 200 Intake, IV 150 Intake, Oral 240 600 Number 1 1 Bowel Movements Output, Urine 300 400 Physical Exam General Appearance: No Acute Distress Other Physical Findings: General Exam: AAOx3, No acute distress, Skin: No rashes, no breakdown HEENT: PERRLA, EOMI Neck: Supple, No JVD No cervical lymphadenopathy CVS: Reg Rate, Normal S1,S2, systolic murmur Resp: Normal air entry, no ronchi/rales Abdomen: Soft, No tenderness, Normal Bowel Sounds Neuro: Normal Speech, Strength 5/5 b/l x 4 extremities, Sensation intact, CN III -XII NL, Reflexes 2+ Extremities: No cyanosis, no pedal edema Current Medications: Current Medications Sig/Lalo Start time Last Medication Dose Route Stop Time Status Admin Acetaminophen 650 MG .STK-MED ONE 05/19 2022 DC PO 05/19 2023 Acetaminophen 650 MG .STK-MED ONE 05/19 1510 DC PO 05/19 1511 Acetaminophen 650 MG Q6P PRN 05/15 181 AC 05/19 PO 2025 Ampicillin 2,000 MG Q8 05/18 0600 AC 05/20 Sodium Chloride 100 ML IV 0514 Aspirin Buffered 81 MG DAILY 05/16 1000 AC 05/19 PO 1535 Atenolol 12.5 MG TID 05/15 2200 AC 05/19 PO 220 Atorvastatin Calcium 10 MG 1700 05/16 1700 AC 05/19 PO 2026 Donepezil HCl 5 MG QPM 05/15 2200 AC 05/19 PO 2201 Enoxaparin Sodium 50 MG BID 05/19 1000 AC 05/19 SC 220 Enoxaparin Sodium 60 MG AT BEDTIME 05/16 2199 DC 05/18 SC 2152 Lidocaine 1 PAT DAILY 05/19 1027 AC 05/19 EXT 1528 Morphine Sulfate 2 MG BID PRN 05/19 0945 AC 05/20 IV 0004 Morphine Sulfate 1 MG BID PRN 05/18 1130 DC 05/19 IV 0603 Potassium Chloride 10 MEQ Q1H 05/19 0915 DC 05/19 IV 05/19 1016 1041 Potassium Chloride 20 MEQ BID 05/18 1000 AC 05/19 PO 220 Prednisolone 1 GTT QPM 05/15 2199 AC 05/19 OPH 2202 Timolol Maleate 1 GTT BID 05/15 2199 AC 05/19 OPH 2202 Trimethobenzamide HCl 200 MG TID PRN 05/16 0315 AC 05/16 IM 0341 Last 24 Hrs of Lab/Cameron Results Last 24 Hrs of Labs/Mics: Laboratory Tests 05/19/16 2013: 05/19/16 0650: Anion Gap 8, Estimated GFR > 60, BUN/Creatinine Ratio 20.0, PT 14.7 H, INR 1.40 H, CBC w Diff NO MAN DIFF REQ, RBC 3.66 L, MCV 86.7, MCH 29.3, RDW 13.9, MPV 8.1, Gran % 79.0 H, Lymphocytes % 6.6 L, Monocytes % 13.3 H, Eosinophils % 1.0, Basophils % 0.1, Absolute Granulocytes 6.0, Absolute Lymphocytes 0.5 L, Absolute Monocytes 1.0 H, Absolute Eosinophils 0.1, Absolute Basophils 0, PUBS MCHC 33.8 Assessment/Plan Assessment: Ms Poe is an active woman who has a past medical history of hypertension, rheumatic heart disease, mitral and aortic valve replacements, and is being evaluted for vomiting, and pain in her right upper extremity and left lower extremity x 1 days ago. Differential diagnoses: #1 group B strep bacteremia (source unknown). Below is the problem list and plan: #1 fever, vomiting-Zofran for nausea. Continue to monitor WBC count and serial abdominal exams to be done. #2 joint pains- Patient has a history of valve replacement, and infective endocarditis is a possible diagnosis. TREVOR was negative for any vegetations on mitral or aortic valves. Bacteremia of group B strep, likely GI source. Continue antibiotics IV ampicillin 2 g every 8. #2 Spinal tenderness in the lower back-pain management with morphine, and ketorolac as an anti-inflammatory. Bone scan, although less sensitive could be done, to assess for any bony abscesses. #3 Fegl-dyadpbaiyla-Yfpqthz for DVT prophylaxis and also anti-coagulation for paroxysmal atrial fibriallation. Research Laboratory Technician, Dr. Kimbrough advising. Lovenox for anticoagulation. Hold Coumadin, if any procedure is warranted. Problem List: 1. Myalgia 2. Leukocytosis Pain Ratin Pain Location: Lower back Pain Goal: Pain 4 or less Pain Plan: IV morphine Motrin Tomorrow's Labs & Rationales: CBC, BEP, INR. [facility] 1546: Attending MD Review Statement Attending Statement Attending MD Statement: examined this patient, discuss w/resident/PA/TOILET ATTENDANT, agreed w/resident/PA/TOILET ATTENDANT, reviewed EMR data (avail) Attending Assessment/Plan: 85F PMH HTN, rheumatic heart disease s/p AVR and MVR admitted with right shoulder and left ankle pain, nausea, vomiting, malaise, and generalized weakness. Found to have positive blood cultures this morning with gram positive cocci. No recent dental surgery, no trauma, no rash. Denies chest pain, palpitations, SOB, abdominal pain, dysuria. Febrile to 101.3, WBC 18,000, K 3.2 , ESR 43. Mild tenderness to right elbow with mild effusion, shoulder not tender, mild tenderness to left ankle. Imaging shows effusion in right elbow and left ankle without fracture. Plan - Continue Ampicillin - Follow blood cultures, repeat if febrile - Follow ID and orthopedic recommendations - TTE and TRVEOR negative - Continue home medications - Continue Lovenox - Unable to tolerate MRI due to claustrophobia, will obtain bone scan to look for vertebral osteomyelitis or abscess - Continue pain regimen for back pain
[2016-05-20 08:00] VITALS: BP 140/80
--- NOTE | 2016-05-20 11:18 | PN- Cardiology ---
Subjective Subjective: The patient symptoms of back pain. No chest pain. No shortness of breath. No diaphoresis. No palpitations. Objective Vital Signs and I&Os Vital Signs Date Time Temp Pulse Resp B/P Pulse O2 O2 Flow FiO2 Ox Delivery Rate 05/20 0800 97.7 94 20 140/80 98 Room Air 05/20 0036 99.1 92 20 152/84 96 05/19 1616 98.2 97 96 Room Air 05/19 1541 104 158/98 05/19 1439 Room Air Intake & Output 05/20 1600 05/20 0800 05/20 0000 05/19 1600 05/19 0805/19 0000 Intake Total 270 390 600 340 960 Output Total 500 300 400 600 650 Balance -230 90 200 -260 310 Intake, IV 150 150 100 Intake, Oral 120 240 600 240 960 Number 1 1 1 Bowel Movements Output, Urine 500 300 400 600 650 Physical Exam: Gen: The patient is in no acute distress HEENT: Normal nose, ears, and oropharynx. Pupils equal bilaterally. Conjunctiva normal. Neck: Supple with no JVD, no masses, and no thyromegaly Lungs: Clear to auscultation with normal respiratory effort Heart: RRR, S1, S2, 1/6 systolic murmur. Trace peripheral edema, 21+ pulses in the lower extremities bilaterally Abdomen: Soft, nontender, no masses. No hepatomegaly. No splenomegaly Extremities: No clubbing or cyanosis. Normal muscle strength in the upper and lower extremities Skin: Normal skin turgor with no skin ulcers or lesions noted. Current Medications: Current Medications Sig/Lalo Start time Last Medication Dose Route Stop Time Status Admin Acetaminophen 650 MG .STK-MED ONE 05/19 2022 DC PO 05/19 2023 Acetaminophen 650 MG .STK-MED ONE 05/19 1510 DC PO 05/19 1511 Acetaminophen 650 MG Q6P PRN 05/15 1815 AC 05/19 PO 2025 Ampicillin 2,000 MG Q8 05/18 0600 AC 05/20 Sodium Chloride 100 ML IV 0514 Aspirin Buffered 81 MG DAILY 05/16 1000 AC 05/19 PO 153 Atenolol 12.5 MG TID 05/15 2199 AC 05/19 PO 220 Atorvastatin Calcium 10 MG 1700 05/16 1700 AC 05/19 PO 2025 Donepezil HCl 5 MG QPM 05/15 2199 AC 05/19 PO 2201 Enoxaparin Sodium 50 MG BID 05/19 1000 AC 05/19 SC 220 Lidocaine 1 PAT DAILY 05/19 1027 AC 05/19 EXT 1528 Morphine Sulfate 2 MG BID PRN 05/19 0945 05/20 IV 0806 Potassium Chloride 20 MEQ BID 05/18 1000 AC 05/19 PO 2201 Prednisolone 1 GTT QPM 05/15 2199 AC 05/19 OPH 220 Timolol Maleate 1 GTT BID 05/15 2199 AC 05/19 OPH 2202 Trimethobenzamide HCl 200 MG TID PRN 05/16 0315 05/16 IM 0341 Results Last 48 Hrs of Labs/Mics: Laboratory Tests 05/19/16 2013: 05/19/16 0650: Anion Gap 8, Estimated GFR > 60, BUN/Creatinine Ratio 20.0, PT 14.7 H, INR 1.40 H, CBC w Diff NO MAN DIFF REQ, RBC 3.66 L, MCV 86.7, MCH 29.3, RDW 13.9, MPV 8.1, Gran % 79.0 H, Lymphocytes % 6.6 L, Monocytes % 13.3 H, Eosinophils % 1.0, Basophils % 0.1, Absolute Granulocytes 6.0, Absolute Lymphocytes 0.5 L, Absolute Monocytes 1.0 H, Absolute Eosinophils 0.1, Absolute Basophils 0, PUBS MCHC 33.8 Recent Imaging Studies: TREVOR 05/19/16: 1. There are no vegetative lesions detected on this examination. 2. A normally functioning bioprosthetic aortic valve is present. Minimal central aortic insufficiency is noted. 3. A normally functioning bioprosthetic mitral valve is present with minimal mitral insufficiency. 4. A very small pericardial effusion is present. 5. The left atrium is enlarged with moderate enlargement of the left atrial appendage. The appendage is hypokinetic and 2-3+ spontaneous contrast is present with no evidence of thrombus. 6. The pulmonary venous anatomy is normal bilaterally with normal doppler profiles. 7. The left ventricular chamber size is normal with mild concentric hypertrophy and a normal ejection fraction. 8. A left pleural effusion is present. 9. Mild enlargement of the right heart chambers is present with mild to moderate tricuspid insufficiency and mild pulmonic insufficiency. 10. A PFO is present with a very small right to left shunt detected by agitated saline contrast injection. 11. Grade II to III atheromatous plaque is present in the thoracic aorta. Assessment/Plan Assessment/Plan Assessment: 1. Bioprosthetic aortic and mitral valves 2. Paroxysmal atrial fibrillation 3. Group B strep bacteremia 4. No evidence of endocarditis on TREVOR Plan: * Restart warfarin if no further procedures or surgery planned. * Continue Lovenox until INR therapeutic Continue telemetry? Not applicable
--- NOTE | 2016-05-20 13:10 | PN- Infect Dx ---
Subjective Subjective: Afebrile. She feels improved today though still notes low back pain. She has been able to ambulate, though still notes some difficulty with her left ankle. She continues to have limited range of motion of the right shoulder. Objective Last 24 Hrs of Vital Signs/I&O Vital Signs Date Time Temp Pulse Resp B/P Pulse O2 O2 Flow FiO2 Ox Delivery Rate 05/20 1104 94 140/80 05/20 0800 97.7 94 20 140/80 98 Room Air 05/20 0036 99.1 92 20 152/84 96 05/19 1616 98.2 97 96 Room Air 05/19 1541 104 158/98 05/19 1439 Room Air Intake & Output 05/20 1600 05/20 0800 05/20 0000 Intake Total 270 390 Output Total 500 300 Balance -230 90 Intake, IV 150 150 Intake, Oral 120 240 Number 1 1 Bowel Movements Output, Urine 500 300 Physical Exam Other Physical Findings: She appears comfortable in no acute distress Lungs are clear Heart regular rhythm with a 2 to 3/6 systolic murmur Abdomen is soft, nontender with positive bowel sounds Back no CVA tenderness; mild tenderness over the lumbar spine Extremities decreased range of motion of the right shoulder, with no overlying erythema or swelling and nontender on palpation; left ankle with no overlying inflammation Neuro without focality Results Last 24 Hours of Lab Results: Laboratory Tests 05/19 2012 Chemistry Potassium (3.5 - 5.1 mmol/L) 3.5 Last 24 Hours of Cameron Results: Blood cultures May 18 negative Right shoulder aspiration culture May 17 negative Assessment/Plan Impression: Stable with temperatures and white blood cell count normal on Ampicillin now Day 4 of treatment for Group B strep sepsis of unclear source with TREVOR negative and with culture of the right shoulder aspiration also negative. Her back pain, which began only after admission, could suggest seeding of the spine, but she is apparently claustrophobic and cannot undergo an MRI here. Suggestion: 1. Would pursue bone scan 2. Continue Ampicillin pending above
[2016-05-20 16:21] VITALS: BP 140/90
[2016-05-21 00:31] VITALS: BP 120/82
[2016-05-21 07:19] VITALS: BP 134/72
[2016-05-21 08:18] LABS: ABSOLUTE BASOPHIL COUNT 0 /CUMM (0.0-0.2); ABSOLUTE EOSINOPHIL COUNT 0.2 /CUMM (0.0-0.7); ABSOLUTE GRANULOCYTE CT 7.4 /CUMM (1.4-6.5); ABSOLUTE LYMPH COUNT 0.6 /CUMM (1.2-3.4); ABSOLUTE MONOCYTE COUNT 0.6 /CUMM (0.10-0.60); BASOPHIL % 0.3 % (0.0-2.0); HEMATOCRIT 35.6 % (37-47); MEAN CORPUSCULAR HGB 29.1 PG (27.0-31.0); MEAN CORPUSCULAR HGB CONC 33.3 G/DL (33.0-37.0); MEAN CORPUSCULAR VOLUME 87.4 FL (81.0-99.0); RBC DISTRIBUTION WIDTH 14.1 % (11.5-14.5); RED BLOOD CELL CT 4.07 /CUMM (4.20-5.40); WHITE BLOOD CELL COUNT 8.9 /CUMM (4.8-10.8)
[2016-05-21 08:45] LABS: PLATELET COUNT 312 /CUMM (130-400)
--- NOTE | 2016-05-21 12:54 | PN- Infect Dx ---
Subjective Subjective: Afebrile. She continues to complain of back pain and left ankle pain, which have been relieved with pain medication. Objective Last 24 Hrs of Vital Signs/I&O Vital Signs Date Time Temp Pulse Resp B/P Pulse O2 O2 Flow FiO2 Ox Delivery Rate 05/21 0906 97.7 95 18 134/72 05/21 0719 97.7 95 18 134/72 93 Room Air 05/21 0031 97.1 99 20 120/82 95 Room Air 05/20 2124 88 133/81 05/20 1714 87 140/90 05/20 1621 98.8 87 20 140/90 95 05/20 1351 Room Air Intake & Output 05/21 1600 05/21 0800 05/21 0000 Intake Total 580 180 Output Total 1250 Balance -670 180 Intake, IV 100 Intake, Oral 480 180 Output, Urine 1250 Physical Exam Other Physical Findings: She appears comfortable at present in no acute distress Lungs are clear Heart regular rhythm with a 3/6 systolic ejection murmur Extremities decreased range of motion right shoulder persists, with no overlying inflammation; left ankle swelling medially, with no overlying erythema and with some resistance to extension Results Last 24 Hours of Lab Results: Laboratory Tests 05/21 0720 Chemistry Sodium (137 - 145 mmol/L) 135 L Potassium (3.5 - 5.1 mmol/L) 3.7 Chloride (98 - 107 mmol/L) 99 Carbon Dioxide (22 - 30 mmol/L) 27 Anion Gap (5 - 16) 8 BUN (7 - 17 mg/dL) 12 Creatinine (0.5 - 1.0 mg/dL) 0.7 Estimated GFR (>60 ml/min) > 60 BUN/Creatinine Ratio (7 - 25 %) 17.1 Coagulation PT (9.4 - 12.5 SEC) 14.0 H INR (0.90 - 1.19) 1.34 H Hematology CBC w Diff MAN DIFF ORDERED WBC (4.8 - 10.8 /CUMM) 8.9 RBC (4.20 - 5.40 /CUMM) 4.07 L Hgb (12.0 - 16.0 G/DL) 11.9 L Hct (37 - 47 %) 35.6 L MCV (81.0 - 99.0 FL) 87.4 MCH (27.0 - 31.0 PG) 29.1 RDW (11.5 - 14.5 %) 14.1 Plt Count (130 - 400 /CUMM) 312 MPV (7.4 - 10.4 FL) 8.0 Gran % (42.2 - 75.2 %) 84.0 H Lymphocytes % (20.5 - 51.1 %) 6.4 L Monocytes % (1.7 - 9.3 %) 7.3 Eosinophils % (0 - 5 %) 2.0 Basophils % (0.0 - 2.0 %) 0.3 Absolute Granulocytes (1.4 - 6.5 /CUMM) 7.4 H Segmented Neutrophils (42.2 - 75.2 %) 80 H Band Neutrophils (0.0 - 5.0 %) 2 Absolute Lymphocytes (1.2 - 3.4 /CUMM) 0.6 L Lymphocytes (20.5 - 51.1 %) 8 L Monocytes (1.7 - 9.3 %) 5 Absolute Monocytes (0.10 - 0.60 /CUMM) 0.6 Eosinophils (0 - 5.0 %) 3 Absolute Eosinophils (0.0 - 0.7 /CUMM) 0.2 Basophils (0.0 - 2.0 %) 1 Absolute Basophils (0.0 - 0.2 /CUMM) 0 Metamyelocytes (0.0 - 1.0 %) 1 Platelet Estimate (ADEQUATE) VERIFIED BY SMEAR Polychromasia 1+ Poikilocytosis 1+ Ovalocytes 1+ [place] Cells 1+ PUBS MCHC (33.0 - 37.0 G/DL) 33.3 Last 24 Hours of Cameron Results: Blood cultures May 18 remain negative Assessment/Plan Impression: Stable with temperatures and white blood cell count remaining normal on Ampicillin now Day 5 of treatment for Group B strep sepsis of unclear source with TREVOR negative and with culture of the right shoulder aspiration also negative. Her back pain, which began only after admission, could suggest seeding of the spine, and she is scheduled for a bone scan today. 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 Suggestion: 1. Await bone scan 2. Orthopedic follow-up if her arthralgias/arthritis persist 3. Continue Ampicillin pending above
--- NOTE | 2016-05-21 13:18 | PN- Housestaff ---
KANIKA ARCINIEGA 05/21/16 1317: Subjective Follow-up For: bacteremia Subjective: The patient was comfortable this morning. Vitals remained stable overnight. Still complains of back pain and ankle pain which started this a.m. after she walked. Complains of left ankle swelling. Review of Systems Constitutional: Reports: see HPI. Objective Last 24 Hrs of Vital Signs/I&O Vital Signs Date Time Temp Pulse Resp B/P Pulse O2 O2 Flow FiO2 Ox Delivery Rate 05/21 0906 97.7 95 18 134/72 05/21 0719 97.7 95 18 134/72 93 Room Air 05/21 0031 97.1 99 20 120/82 95 Room Air 05/20 2124 88 133/81 05/20 1714 87 140/90 05/20 1621 98.8 87 20 140/90 95 05/20 1351 Room Air Intake & Output 05/21 1600 05/21 0800 05/21 0000 Intake Total 580 180 Output Total 1250 Balance -670 180 Intake, IV 100 Intake, Oral 480 180 Output, Urine 1250 Physical Exam General Appearance: No Acute Distress Other Physical Findings: General Exam: AAOx3, No acute distress, Skin: No rashes, no breakdown HEENT: PERRLA, EOMI Neck: Supple, No JVD No cervical lymphadenopathy CVS: Reg Rate, Normal S1,S2, No MGR Resp: Normal air entry, no ronchi/rales Abdomen: Soft, No tenderness, Normal Bowel Sounds Neuro: Normal Speech, Strength 5/5 b/l x 4 extremities, Sensation intact, CN III -XII NL, Reflexes 2+ Extremities: No cyanosis, no pedal edema, left ankle swelling, restricted mobility of left shoulder. Assessment/Plan Assessment: Ms Poe is an active woman who has a past medical history of hypertension, rheumatic heart disease, mitral and aortic valve replacements, and is being evaluted for vomiting, and pain in her right upper extremity and left lower extremity x 1 days ago. Differential diagnoses: #1 group B strep bacteremia (source unknown- likely , may by GI). Below is the problem list and plan: #1 fever, vomiting- Zofran for nausea. Continue to monitor WBC count and serial abdominal exams to be done. #2 joint pains- Patient has a history of valve replacement, and infective endocarditis was entertained as a possible diagnosis. TREVOR was negative for any vegetations on mitral or aortic valves. Bacteremia of group B strep, likely GI/ source. Continue antibiotics IV ampicillin 2 g every 8. #2 Spinal tenderness in the lower back-pain management with morphine, and ketorolac as an anti-inflammatory. Bone scan, although less sensitive could be done, to assess for any bony abscesses. To review results. Await orthopedic re- evaluation. Could be done as an outpatient. #3 [id number] for DVT prophylaxis and also anti-coagulation for paroxysmal atrial fibriallation. Sales Performance Analyst, Dr. Kimbrough advising. Lovenox for anticoagulation. Hold Coumadin, if any procedure is warranted. Problem List: 1. Myalgia 2. Leukocytosis Pain Ratin Pain Location: lower back, left ankle. Pain Goal: Pain 4 or less Pain Plan: tylenol prn dialudid [facility] Labs & Rationales: cbc to monitor for leucocytosis GODWIN SHEETS MD 05/21/16 1712: Attending MD Review Statement Attending Statement Attending MD Statement: examined this patient, discuss w/resident/PA/PROGRAM THERAPIST, agreed w/resident/PA/PROGRAM THERAPIST, reviewed EMR data (avail) Attending Assessment/Plan: 85F PMH HTN, rheumatic heart disease s/p AVR and MVR admitted with right shoulder and left ankle pain, nausea, vomiting, malaise, and generalized weakness. Found to have positive blood cultures this morning with gram positive cocci. No recent dental surgery, no trauma, no rash. Denies chest pain, palpitations, SOB, abdominal pain, dysuria. Febrile to 101.3, WBC 18,000, K 3.2 , ESR 43. Mild tenderness to right elbow with mild effusion, shoulder not tender, mild tenderness to left ankle. Imaging shows effusion in right elbow and left ankle without fracture. Now doing well on Ampicillin. TTE and TREVOR negative. Unable to tolerate MRI. Bone scan pending today to evaluate for vertebral osteomyelitis as a possible source of Group B streptococcal bacteremia. Plan - Continue Ampicillin - Follow blood cultures, repeat if febrile - Follow ID and orthopedic recommendations - TTE and TREVOR negative - Continue home medications - Continue Lovenox - Unable to tolerate MRI due to claustrophobia, will obtain bone scan to look for vertebral osteomyelitis or abscess - Continue pain regimen for back pain - If bone scan positive, will need biopsy for culture. If negative, will follow ID recommendations for discharge antibiotics - Will require STR on discharge
[2016-05-21 16:38] VITALS: BP 130/70
--- NOTE | 2016-05-21 18:03 | NUCLEAR MEDICINE REPORT ---
EXAMINATION: NM BONE SCAN 3 PHASE CLINICAL INFORMATION: Pain in thoracic and lumbar spinal region. Status post mitral valve and aortic valve replacements 2 years ago. COMPARISON: No previous bone scan is available for comparison. Radiographs of the chest, lumbosacral spine, right elbow and left ankle dated 05/15/2016 are available for comparison. TECHNIQUE: Initial rapid sequence images were obtained over the midthoracic spine to the coccygeal region in the anterior and posterior projections during the bolus injection of 25.6 mCi Tc-99m HDP. Static images of the mid cervical spine 2 the hips were then obtained 2.5 hours post injection. FINDINGS: Initial rapid sequence images show no foci of abnormally increased flow in the spine or pelvis. Normal flow to the kidneys, liver, and spleen is noted. Blood pool images obtained immediately following the flow study show no foci of abnormal blood pool activity in the visualized spine or posterior pelvis. The delayed static images show a mild thoracolumbar scoliosis with lower lumbar convexity to the right. There is minimally increased activity in the midthoracic spine at the T7-T8 level there is also mildly increased activity in the right side lumbar spine at the L3-L4 level. This is probably predominantly in the posterior elements. There is also minimally increased activity in the right side of L5. No other abnormalities are present in the spine or pelvis. The urinary bladder and faint visualization of both kidneys are noted. IMPRESSION: No abnormalities strongly suspicious for osteomyelitis in the spine right any other site. Mild nonspecific abnormalities are noted as described above and these are all likely arthritic or traumatic in etiology. None of these abnormalities is strongly suspicious for a recent fracture, active infection, or metastatic disease.
--- NOTE | 2016-05-21 18:57 | Patient Discharge Instructions ---
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 ankle ostechondral defect degenrative changes) You had these procedures: Rt. shoulder arthrocentesis TTE/TREVOR Watch for these problems: 1. Severe back pain, sever joint pains 2. Fever, shortness of breath Special Instructions: Please follow up with a primary doctor after discharge within 2 weeks. Please follow up with GI doctor for anemia workup (last colonoscopy 15 YA) Please follow up with Orthopedic surger for multiple joint arthritis Please continue SC lovenox and coumadin bridge at least 5 days, and dose coumadin later according to INR (goal 2-3) for paroxysmal A.fib/flutter Please see your client delivery specialist within a week of discharge. Diet Continue normal diet: Yes Recommended Diet: Heart Healthy Activity Full Activity/No Limits: Yes Activity Self Limited: No Activity Limited to: Walking with Assistance Other activity limits: Increase as tolerated Please continue physical therapy on gait & Rt. shoulder Please continue ice pack on joint as needed Acute Coronary Syndrome Inclusion Criteria At DC or during hospital stay patient has or had the following: ACS DIAGNOSIS No Discharge Core Measures Meds if any: Prescribed or Continued at Discharge Meds if any: NOT Prescribed or Continued at Discharge Congestive Heart Failure Inclusion Criteria At DC or during hospital stay patient has or had the following: CHF DIAGNOSIS No Discharge Core Measures Meds if any: Prescribed or Continued at Discharge Meds if any: NOT Prescribed or Continued at Discharge Cerebrovascular accident Inclusion Criteria At DC or during hospital stay patient has or had the following: CVA/TIA Diagnosis No Discharge Core Measures Meds if any: Prescribed or Continued at Discharge Meds if any: NOT Prescribed or Continued at Discharge Venous thromboembolism Inclusion Criteria VTE Diagnosis No VTE Type NONE VTE Confirmed by (Test) NONE Discharge Core Measures - Per Current guidelines, there needs to be overlap - treatment for the first 5 days of Warfarin therapy. - If discharged on Warfarin prior to 5 days of - overlap therapy, the patient will need to be - assessed for post discharge needs including - *Post discharge parental anticoagulation - *Warfarin and/or parental anticoagulation education - *Follow up date to check INR post discharge At least 5 days overlap therapy as Inpatient No Meds if any: Prescribed or Continued at Discharge Note: Overlap Therapy is Warfarin and Anticoagulant Meds if any: NOT Prescribed or Continued at Discharge
[2016-05-21] MEDS ORDERED: AMOXICILLIN500 M2 PO (19:21)
[2016-05-21] MEDS ORDERED: IBUPROFEN800 M1 PO (19:21)
[2016-05-21] MEDS ORDERED: MORPHINE SULFAT15 M4 PO (19:26)
--- NOTE | 2016-05-21 20:30 | PN- Cardiology ---
Subjective Subjective: Stable CV status; continued symptoms of back pain. Objective Vital Signs and I&Os Vital Signs Date Time Temp Pulse Resp B/P Pulse O2 O2 Flow FiO2 Ox Delivery Rate 05/21 1702 102 130/70 05/21 1638 97.5 102 18 130/70 97 Room Air 05/21 0906 97.7 95 18 134/72 05/21 0719 97.7 95 18 134/72 93 Room Air 05/21 0031 97.1 99 20 120/82 95 Room Air 05/20 2124 88 133/81 Intake & Output 05/21 1600 05/21 0800 05/21 0000 05/20 1600 05/20 0805/20 0000 Intake Total 700 580 180 650 270 390 Output Total 1250 200 500 300 Balance 700 -670 180 450 -230 90 Intake, IV 220 100 150 150 Intake, Oral 480 480 180 650 120 240 Number 1 1 1 Bowel Movements Output, Urine 1250 200 500 300 Current Medications: Current Medications Sig/Lalo Start time Last Medication Dose Route Stop Time Status Admin Acetaminophen 650 MG .STK-MED ONE 05/21 0312 DC PO 05/21 0313 Acetaminophen 650 MG .STK-MED ONE 05/20 2139 DC PO 05/20 2140 Acetaminophen 650 MG Q6P PRN 05/15 1815 AC 05/21 PO 0315 Ampicillin 2,000 MG Q8 05/18 0600 05/21 Sodium Chloride 100 ML IV 1333 Aspirin Buffered 81 MG DAILY 05/16 1000 AC 05/21 PO 1032 Atenolol 12.5 MG TID 05/15 2200 AC 05/21 PO 1702 Atorvastatin Calcium 10 MG 1700 05/16 1700 AC 05/21 PO 1702 Donepezil HCl 5 MG QPM 05/15 2200 AC 05/20 PO 2121 Enoxaparin Sodium 50 MG BID 05/19 1000 AC 05/21 SC 1030 Ibuprofen 600 MG Q6P PRN 05/20 1500 AC 05/21 PO 1831 Lidocaine 1 PAT DAILY 05/19 1027 05/21 EXT 0907 Morphine Sulfate 2 MG TID PRN 05/20 1600 05/21 IV 1659 Patient Medication 1 ED .STK-MED ONE 05/21 1417 DC Teaching ED 05/21 1418 Potassium Chloride 20 MEQ BID 05/18 1000 05/21 PO 0906 Prednisolone 1 GTT QPM 01/2199 05/20 OPH 2121 Timolol Maleate 1 GTT BID 05/15 2199 AC 05/21 OPH 0913 Trimethobenzamide HCl 200 MG TID PRN 05/16 0315 AC 05/16 IM 0341 Results Last 48 Hrs of Labs/Mics: Laboratory Tests 05/21/16 0720: Anion Gap 8, Estimated GFR > 60, BUN/Creatinine Ratio 17.1, PT 14.0 H, INR 1.34 H, CBC w Diff MAN DIFF ORDERED, RBC 4.07 L, MCV 87.4, MCH 29.1, RDW 14.1, MPV 8.0, Gran % 84.0 H, Lymphocytes % 6.4 L, Monocytes % 7.3, Eosinophils % 2.0, Basophils % 0.3, Absolute Granulocytes 7.4 H, Segmented Neutrophils 80 H, Band Neutrophils 2, Absolute Lymphocytes 0.6 L, Lymphocytes 8 L, Monocytes 5, Absolute Monocytes 0.6, Eosinophils 3, Absolute Eosinophils 0.2, Basophils 1, Absolute Basophils 0, Metamyelocytes 1, Platelet Estimate VERIFIED BY SMEAR, Polychromasia 1+, Poikilocytosis 1+, Ovalocytes 1+, [place] Cells 1+, PUBS MCHC 33.3 Assessment/Plan Assessment/Plan Assessment: 1. Group B Strep bacteremia of unclear source 2. Aortic and mitral prosthetic valves 3. PAF Recommendations: - TREVOR was unrevealing - BOne scan pending - Continue as per ID and medical team. - Please notify us if any further cardiology input required. Thank You. Continue telemetry? Yes
[2016-05-21 23:20] VITALS: BP 122/70
[2016-05-22 08:00] VITALS: BP 136/84
--- NOTE | 2016-05-22 09:15 | PN- Housestaff ---
DOC DAWSON,OBINNA 05/22/16 0914: Subjective Follow-up For: Bacteremia Subjective: Patient seen and examined. She is seen sitting upright in her chair at bedside resting comfortably watching TV. She appears to be in no acute distress. She is relieved to hear that her and was negative/inconclusive for osteomyelitis, but is concerned about potentially having to have an MRI and is insisting that it needs to be an "open MRI". She said she was awoken last night with severe back pain and it took quite a while for her pain medication to calm and relieve the pain, but otherwise slept well and has no complaints. Additionally she denies any headache, fever, chills, chest pain, palpitations, shortness of breath, cough, nausea, vomiting, diarrhea. No overnight events reported other than above. Review of Systems Constitutional: Reports: see HPI. Objective Last 24 Hrs of Vital Signs/I&O Vital Signs Date Time Temp Pulse Resp B/P Pulse O2 O2 Flow FiO2 Ox Delivery Rate 05/22 1136 106 136/84 05/21 2320 98.4 100 18 122/70 97 Room Air 05/21 2217 100 122/70 05/21 1702 102 130/70 05/21 1638 97.5 102 18 130/70 97 Room Air Intake & Output 05/22 1600 05/22 0800 05/22 0000 Intake Total 440 580 Output Total 500 200 Balance -60 380 Intake, IV 200 100 Intake, Oral 240 480 Output, Urine 500 200 Physical Exam General Appearance: Alert, Oriented X3, Cooperative, No Acute Distress Other Physical Findings: General -well-developed, well-nourished elderly woman in no acute distress HEENT - NCAT, PERRL, EOMI, anicteric sclera Cardio - S1, S2 w/o murmurs/gallops/rubs Resp - CTA bilaterally w/o wheezing/rhochi/crackles GI - soft, nontender, nondistended, bowel sounds present Neuro - Awake and alert, CN II - XII grossly intact Extremities - no edema, pulses intact, moderately swollen left lower extremity Current Medications: Current Medications Sig/Lalo Start time Last Medication Dose Route Stop Time Status Admin Acetaminophen 650 MG Q6P PRN 05/15 1815 AC 05/22 PO 0451 Ampicillin 2,000 MG Q8 05/18 0600 AC 05/22 Sodium Chloride 100 ML IV 0538 Aspirin Buffered 81 MG DAILY 05/16 1000 AC 05/22 PO 1130 Atenolol 12.5 MG TID 05/15 2200 AC 05/22 PO 1136 Atorvastatin Calcium 10 MG 1700 05/16 1700 AC 05/21 PO 1702 Donepezil HCl 5 MG QPM 05/15 2200 AC 05/21 PO 2216 Enoxaparin Sodium 50 MG BID 05/19 1000 AC 05/22 SC 1129 Ibuprofen 600 MG Q6P PRN 05/20 1500 AC 05/21 PO 1831 Lidocaine 1 PAT DAILY 05/19 1027 AC 05/22 EXT 1129 Morphine Sulfate 2 MG TID PRN 05/20 1600 AC 05/22 IV 1125 Patient Medication 1 ED .STK-MED ONE 05/21 1417 DC Teaching ED 05/21 1418 Potassium Chloride 20 MEQ BID 05/18 1000 AC 05/22 PO 1136 Prednisolone 1 GTT QPM 05/15 2200 AC 05/21 OPH 2216 Timolol Maleate 1 GTT BID 05/15 2200 AC 05/22 OPH 1130 Trimethobenzamide HCl 200 MG TID PRN 05/16 0315 AC 05/16 IM 0341 Assessment/Plan Assessment: Patient reports doing well today other than an episode of severe back pain last night that was relieved with narcotic pain medications. Bone scan did not demonstrate osteomyelitis. Follow-up MRI to further assess for osteomyelitis if needed. Patient is admitting to a swollen left lower extremity that has been present since admission and denies any associated pain. ID recommendations pending. 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 Myalgia Pain Ratin Pain Location: Low back Pain Goal: Remain pain free Pain Plan: As noted in plan Tomorrow's Labs & Rationales: Basic metabolic panel Janice NGUYEN MD,TITA 05/22/16 1309: Attending MD Review Statement Attending Statement Attending MD Statement: examined this patient, discuss w/resident/PA/AVIONICS TEST TECHNICIAN, agreed w/resident/PA/AVIONICS TEST TECHNICIAN, reviewed EMR data (avail), discussed with nursing, reviewed images Attending Assessment/Plan: 85-year-old female with past medical history significant for hypertension, rheumatic heart disease status post aVR and MVR is being admitted to the floor for right shoulder and left ankle pain nausea and vomiting, malaise and weakness. She also has multiple blood cultures and urine cultures growing group B streptococci. Pattient was seen and examined on the bedside this morning and reports of mild back pain. Vitals stable and labs were reviewed. Patient was initially started on vancomycin which was then switched over to ampicillin. ID on board. Her TTE and TREVOR were negative and aspiration from the joints were negative for septic arthritis. Given her claustrophobia MRI could not be obtained but bone scan was negative for any osteomyelitis. For now will continue on pain management and will follow further recommendations from ID regarding her antibiotics.
[2016-05-22 15:52] VITALS: BP 132/82
[2016-05-22 23:40] VITALS: BP 138/95
[2016-05-23 08:00] VITALS: BP 128/78
--- NOTE | 2016-05-23 08:10 | PN- Housestaff ---
KANIAK ARCINIEGA 05/23/16 0809: Subjective Follow-up For: 1. bacteremia Subjective: The patient was comfortable this morning. Stated the pain was adequately controlled. Still complains of pain in her left lower extremity and right shoulder. Was afebrile overnight. Blood pressure was stable. Review of Systems Constitutional: Reports: see HPI. Objective Last 24 Hrs of Vital Signs/I&O Vital Signs Date Time Temp Pulse Resp B/P Pulse O2 O2 Flow FiO2 Ox Delivery Rate 05/22 2340 98.7 100 18 138/95 96 Room Air 05/22 2104 98 120/80 05/22 1653 132/86 05/22 1552 98.4 90 20 132/82 94 05/22 1136 106 136/84 Intake & Output 05/23 1600 05/23 0800 05/23 0000 Intake Total 340 600 Output Total 600 1100 Balance -260 -500 Intake, IV 100 120 Intake, Oral 240 480 Number 2 Bowel Movements Output, Urine 600 1100 Physical Exam General Appearance: No Acute Distress Other Physical Findings: General Exam: AAOx3, No acute distress, Skin: No rashes, no breakdown HEENT: PERRLA, EOMI Neck: Supple, No JVD No cervical lymphadenopathy CVS: Reg Rate, Normal S1,S2, No MGR Resp: Normal air entry, no ronchi/rales Abdomen: Soft, No tenderness, Normal Bowel Sounds Neuro: Normal Speech, Strength 5/5 b/l x 4 extremities, Sensation intact, CN III -XII NL, Reflexes 2+ Extremities: No cyanosis, pedal edema (left ankle), swelling, tenderness left ankle. Restriction of motion on active and passive-right shoulder. Tenderness positive on right shoulder. Current Medications: Current Medications Sig/Lalo Start time Last Medication Dose Route Stop Time Status Admin Acetaminophen 650 MG Q6P PRN 05/15 1815 AC 05/22 PO 0451 Ampicillin 2,000 MG Q8 05/18 0600 05/23 Sodium Chloride 100 ML IV 0608 Aspirin Buffered 81 MG DAILY 05/16 1000 AC 05/22 PO 1130 Atenolol 12.5 MG TID 05/15 2199 AC 05/22 PO 210 Atorvastatin Calcium 10 MG 1700 05/16 1700 AC 05/22 PO 1653 Donepezil HCl 5 MG QPM 05/15 2199 AC 05/22 PO 210 Enoxaparin Sodium 50 MG BID 05/19 1000 AC 05/22 SC 2104 Ibuprofen 600 MG Q6P PRN 05/20 1500 AC 05/22 PO 1512 Lidocaine 1 PAT DAILY 05/19 1027 AC 05/22 EXT 1129 Morphine Sulfate 2 MG TID PRN 05/20 1600 AC 05/22 IV 2127 Potassium Chloride 40 MEQ ONCE ONE 05/22 1315 DC 05/22 PO 05/22 1316 1453 Potassium Chloride 20 MEQ BID 05/18 1000 AC 05/22 PO 2105 Prednisolone 1 GTT QPM 05/15 2200 AC 05/22 OPH 2100 Timolol Maleate 1 GTT BID 05/15 2200 AC 05/22 OPH 2059 Trimethobenzamide HCl 200 MG TID PRN 05/16 0315 AC 05/16 IM 0341 Last 24 Hrs of Lab/Cameron Results Last 24 Hrs of Labs/Mics: Laboratory Tests 05/23/16 0630: Sodium Pending, Potassium Pending, Chloride Pending, Carbon Dioxide Pending, Anion Gap Pending, BUN Pending, Creatinine Pending, BUN/Creatinine Ratio Pending , Magnesium Pending Assessment/Plan Assessment: Ms Poe is an active woman who has a past medical history of hypertension, rheumatic heart disease, mitral and aortic valve replacements, and is being evaluted for vomiting, and pain in her right upper extremity and left lower extremity x 1 days ago. Differential diagnoses: #1 group B strep bacteremia (source unknown- likely , may by GI). Below is the problem list and plan: #1 fever, vomiting- improved. Currently no complaints. #2 joint pains- infective endocarditis and septic joint was in the differential initially. Currently differential diagnoses include osteoarthritis. Reevaluate ankle joint swelling. Discuss with orthopedic surgeon, if they would like to reassess. CAT scan left ankle. Infective endocarditis has been ruled out. Bacteremia with group B strep likely GI/ source. Bone scan was negative for abscess or any infection. MRI could not be done-as the patient declined. Continue antibiotics IV ampicillin 2 g every 8 hours pending above. #2 Spinal tenderness in the lower back-pain management with morphine, and ketorolac as an anti-inflammatory. Orthopedic evaluation as an outpatient. #3 Ytyq-qxjpzfwedvi-Hmfieqv for DVT prophylaxis and also anti-coagulation for paroxysmal atrial fibriallation. Staff Editor, Dr. Kimbrough advising. Hold Coumadin, if any procedure is warranted. Reassess in the a.m., if Coumadin needs to be restarted. #4 igclppheanz-jvaqphfu-yltlzwo had hypokalemia in the past, for which she was being replenished with daily potassium. Current potassium is 5.0. Decrease potassium of daily dose from 20 mEq to 10 mEq twice a day. Problem List: 1. Myalgia Pain Ratin Pain Location: Left ankle, right shoulder, lower back. Pain Goal: Pain 4 or less Pain Plan: Tylenol Ibuprofen Morphine Tomorrow's Labs & Rationales: Basic electrolyte panel-to monitor for potassium levels. PATRICK DAWSON,TITA 05/23/16 1217: Attending MD Review Statement Attending Statement Attending MD Statement: examined this patient, discuss w/resident/PA/MOLD PRESS OPERATOR, agreed w/resident/PA/MOLD PRESS OPERATOR, reviewed EMR data (avail), discussed with nursing, reviewed images Attending Assessment/Plan: 85-year-old female with past medical history significant for hypertension, rheumatic heart disease status post aVR and MVR is being admitted to the floor for right shoulder and left ankle pain nausea and vomiting, malaise and weakness. She also has multiple blood cultures and urine cultures growing group B streptococci. Pattient was seen and examined on the bedside this morning and reports of mild back pain. Vitals stable and labs were reviewed. Patient was initially started on vancomycin which was then switched over to ampicillin. ID on board. Her TTE and TREVOR were negative and aspiration from the joints were negative for septic arthritis. Given her claustrophobia MRI could not be obtained but bone scan was negative for any osteomyelitis. ID has recommended having a CT of the left ankle given her pain and tenderness in her left ankle. Will continue on ampicillin until further recommendations.
--- NOTE | 2016-05-23 09:21 | PN- Infect Dx ---
Subjective Subjective: Afebrile. Her back pain is somewhat improved with pain medication, but she still complains of left ankle discomfort making ambulation difficult. Objective Last 24 Hrs of Vital Signs/I&O Vital Signs Date Time Temp Pulse Resp B/P Pulse O2 O2 Flow FiO2 Ox Delivery Rate 05/23 0800 97.9 108 18 128/78 96 Room Air 05/22 2340 98.7 100 18 138/95 96 Room Air 05/22 2104 98 120/80 05/22 1653 132/86 05/22 1552 98.4 90 20 132/82 94 05/22 1136 106 136/84 Intake & Output 05/23 1600 05/23 0800 05/23 0000 Intake Total 340 600 Output Total 600 1100 Balance -260 -500 Intake, IV 100 120 Intake, Oral 240 480 Number 2 Bowel Movements Output, Urine 600 1100 Physical Exam Other Physical Findings: She appears comfortable in no acute distress Lungs are clear Heart regular rhythm with no change in her murmur Extremities left ankle swelling, with good range of motion, with point tenderness laterally; right shoulder with limited range of motion but with no overlying inflammation Results Last 24 Hours of Lab Results: Laboratory Tests 05/23 629 Chemistry Sodium Pending Potassium Pending Chloride Pending Carbon Dioxide Pending Anion Gap Pending BUN Pending Creatinine Pending BUN/Creatinine Ratio Pending Magnesium Pending Last 24 Hours of Cameron Results: Blood cultures 2 May 18 negative Recent Imaging Studies: Bone scan May 21 no abnormalities to suggest osteomyelitis Assessment/Plan Impression: Stable with temperatures and white blood cell count remaining normal on Ampicillin now Day 7 of treatment for Group B strep sepsis of unclear source with TREVOR negative and with culture of the right shoulder aspiration also negative. The etiology of her polyarticular arthritis is unclear, with no evidence for a septic joint and with recent bone scan negative. Her left ankle inflammation persists and may warrant further evaluation. Of note a Doppler of the left leg earlier on this hospitalization was negative. Suggestion: 1. Would consider CT of the left ankle 2. Orthopedic follow-up in the a.m. if her symptoms persist 3. Continue Ampicillin pending above
[2016-05-23 16:01] VITALS: BP 155/86
--- NOTE | 2016-05-23 16:21 | CT SCAN REPORT ---
EXAMINATION: CT LOWER EXTREMITY WITHOUT CONTRAST, LEFT CLINICAL INFORMATION: Septic joint versus osteoarthritis. COMPARISON: Bone scan 05/21/2016. X-ray left ankle April 2016. TECHNIQUE: CT scan of the left ankle was performed without contrast. DLP: 306 mGy-cm. FINDINGS: There is generalized edema and/or cellulitis circumferentially about the ankle, hindfoot and midfoot regions. I do not see an ulcer. I do not see air in the soft tissues. There is subchondral cystic change along the medial dome of the talus extending 14 mm AP 5 mm transverse and 7 mm deep to the subchondral bone. This is the appearance of an area of osteochondritis dissecans or chondral cystic change related to arthrosis. There is subchondral cystic change on the tibial side of the joint posteriorly just medial to midline compatible with a subchondral cyst is in 5 mm The joint is otherwise unremarkable. I do not see an effusion. There is an os trigonum noted with a cystic changes on both sides of the synchondrosis. 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 Scattered subchondral cysts in the midfoot involving the tail medial and middle cuneiform joint as well as the second third and fourth tarsometatarsal joints. Marginal osteophytes are also present. IMPRESSION: No evidence for septic arthritis. 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 Mild to moderate arthrosis of the midfoot involving the talocuneiform joints and tarsometatarsal joints. 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 (Os trigonum syndrome). Mild edema and/or cellulitis in the soft tissues surrounding the ankle hindfoot and midfoot.
[2016-05-23 16:40] VITALS: BP 162/98
[2016-05-23 18:00] VITALS: BP 150/90
--- NOTE | 2016-05-23 18:48 | NUR ---
AT 1640, PT HAS SOB AT REST, BP 162/98, PULSE 112, TEMP 99.2, O2 96% ON ROOM AIR, RESP 24, PAIN 2/10 HAD ONE FORMED DARK BROWN/BLACK GUIAC POSITIVE STOOL. SHE VOMITTED AT APPROX 1300, 50MLS OF CLEAR AND BROWN EMESIS. AT 1800, RECHECK OF VITALS: BP 150/90, PULSE 109, TEMP 98.4, O2 94%, RESP 20, PAIN *9/10* TO LOWER BACK. 2MG IV MORPHINE GIVEN. ALSO OF NOTE TODAY IS OVER 1000MLS URINE OUTPUT. MD LIMA AWARE.
[2016-05-23 19:54] LABS: ABSOLUTE BASOPHIL COUNT 0.1 /CUMM (0.0-0.2); ABSOLUTE EOSINOPHIL COUNT 0 /CUMM (0.0-0.7); ABSOLUTE GRANULOCYTE CT 9.1 /CUMM (1.4-6.5); ABSOLUTE LYMPH COUNT 0.6 /CUMM (1.2-3.4); BASOPHIL % 0.5 % (0.0-2.0); EOSINOPHIL % 0.4 % (0-5); GRANULOCYTE % 84.6 % (42.2-75.2); HEMATOCRIT 33.3 % (37-47); MEAN CORPUSCULAR HGB CONC 33.4 G/DL (33.0-37.0); MEAN CORPUSCULAR VOLUME 86.8 FL (81.0-99.0); MEAN PLATELET VOLUME 7.6 FL (7.4-10.4); PLATELET COUNT 431 /CUMM (130-400); RED BLOOD CELL CT 3.84 /CUMM (4.20-5.40); WHITE BLOOD CELL COUNT 10.7 /CUMM (4.8-10.8)
[2016-05-23 23:35] VITALS: BP 141/72
--- NOTE | 2016-05-24 07:24 | PN- Housestaff ---
KANIKA ARCINIEGA 05/24/16 0723: Subjective Follow-up For: - bacteremia Subjective: Pt feels improved. No fever. BP was stable. Pt was found to be guiac positive yesterday, but vitals have been stable. H&H was stable. No symptoms- tachycardia. Review of Systems Constitutional: Reports: see HPI. Objective Last 24 Hrs of Vital Signs/I&O Vital Signs Date Time Temp Pulse Resp B/P Pulse O2 O2 Flow FiO2 Ox Delivery Rate 05/23 2335 98.8 108 20 141/72 96 Room Air 05/23 2251 109 142/73 05/23 1800 98.4 109 20 150/90 94 Room Air 05/23 1640 99.2 112 24 162/98 96 Room Air 05/23 1610 110 155/86 05/23 1601 99.6 110 20 155/86 96 05/23 1152 108 128/78 05/23 0800 97.9 108 18 128/78 96 Room Air Intake & Output 05/24 0800 05/24 0000 05/23 1600 Intake Total 100 400 700 Output Total 700 1500 500 Balance -600 -1100 200 Intake, IV 100 200 300 Intake, Oral 200 400 Number 1 1 Bowel Movements Output, 50 Emesis Output, Urine 700 1500 450 Physical Exam General Appearance: No Acute Distress Other Physical Findings: General Exam: AAOx0, No acute distress, Skin: No rashes, no breakdown HEENT: PERRLA, EOMI Neck: Supple, No JVD No cervical lymphadenopathy CVS: Reg Rate, Normal S1,S2, No MGR Resp: Normal air entry, no ronchi/rales Abdomen: Soft, No tenderness, Normal Bowel Sounds, Mullen catheter-in place Neuro: Normal Speech, Strength 5/5 b/l x 4 extremities, Sensation intact, CN III -XII NL, Reflexes 2+ Extremities: No cyanosis, pedal edema 1+ ankle edema, restriciton of mobility of left shoulder jt. Current Medications: Current Medications Sig/Lalo Start time Last Medication Dose Route Stop Time Status Admin Acetaminophen 650 MG Q6P PRN 05/15 1815 AC 05/24 PO 0353 Ampicillin 2,000 MG Q8 05/23 1400 AC 05/24 Sodium Chloride 100 ML IV 0520 Ampicillin 2,000 MG Q8 05/18 0600 DC 05/23 Sodium Chloride 100 ML IV 0608 Aspirin Buffered 81 MG DAILY 05/16 1000 AC 05/23 PO 1152 Atenolol 12.5 MG TID 05/15 220 AC 05/23 PO 2251 Atorvastatin Calcium 10 MG 1700 05/16 1700 AC 05/23 PO 1610 Donepezil HCl 5 MG QPM 05/15 2200 AC 05/23 PO 2254 Enoxaparin Sodium 50 MG BID 05/19 1000 AC 05/23 SC 2245 Ibuprofen 600 MG Q6P PRN 05/20 1500 DC 05/22 PO 1512 Lidocaine 1 PAT DAILY 05/19 1027 AC 05/23 EXT 1155 Morphine Sulfate 2 MG TID PRN 05/20 1600 AC 05/24 IV 0435 Omeprazole 40 MG BID 05/23 2200 AC 05/23 PO 2254 Patient Medication 1 UNIT ONE NR 05/23 1745 DC Teaching ED 05/23 1800 Potassium Chloride 10 MEQ BID 05/23 2199 AC 05/23 PO 2251 Potassium Chloride 20 MEQ BID 05/18 1000 DC 05/23 PO 1155 Prednisolone 1 GTT QPM 05/15 2199 AC 05/23 OPH 2250 Timolol Maleate 1 GTT BID 05/15 220 AC 05/23 OPH 2253 Trimethobenzamide HCl 200 MG TID PRN 05/16 0315 AC 05/23 IM 2102 Last 24 Hrs of Lab/Cameron Results Last 24 Hrs of Labs/Mics: Laboratory Tests 05/23/161914: CBC w Diff MAN DIFF ORDERED, RBC 3.84 L, MCV 86.8, MCH 29.0, RDW 14.0, MPV 7.6, Gran % 84.6 H, Lymphocytes % 5.4 L, Monocytes % 9.1, Eosinophils % 0.4, Basophils % 0.5, Absolute Granulocytes 9.1 H, Segmented Neutrophils 82 H, Band Neutrophils 3, Absolute Lymphocytes 0.6 L, Lymphocytes 6 L, Monocytes 7, Absolute Monocytes 1.0 H, Eosinophils 1, Absolute Eosinophils 0, Basophils 1, Absolute Basophils 0.1, Platelet Estimate ADEQUATE, Polychromasia 1+, Hypochromic-Microcytic 1+, Anisocytosis 1+, PUBS MCHC 33.4 Assessment/Plan Assessment: Ms Poe is an active woman who has a past medical history of hypertension, rheumatic heart disease, mitral and aortic valve replacements, and is being evaluted for vomiting, and pain in her right upper extremity and left lower extremity x 1 days ago. Differential diagnoses: #1 group B strep bacteremia (source unknown- likely , may by GI). Below is the problem list and plan: #1 fever, vomiting- improved. Currently no complaints. #2 joint pains- infective endocarditis and septic joint was in the differential initially. Currently differential diagnoses include osteoarthritis. Reevaluate ankle joint swelling. Discuss with orthopedic surgeon, if they would like to reassess. CAT scan left ankle. Infective endocarditis has been ruled out. Bacteremia with group B strep likely GI/ source. Bone scan was negative for abscess or any infection. MRI could not be done-as the patient declined. Continue antibiotics IV ampicillin 2 g every 8 hours pending abve, which was changed to amoxicillin 500mg po q8 for a total of 14 days. #2 Spinal tenderness in the lower back-pain management with morphine, and ketorolac as an anti-inflammatory. Orthopedic evaluation as an outpatient. #3 Mesd-yplodxjhode-Tkgonqa for DVT prophylaxis and also anti-coagulation for paroxysmal atrial fibriallation. Powder Monkey, Dr. Kimbrough advising. Coumadin to be restarted w/ lovenox bridge. #4 eonhewfxyly-rheyqphx-yzbjmje had hypokalemia in the past, for which she was being replenished with daily potassium. Current potassium is 5.0. Decrease potassium of daily dose from 20 mEq to 10 mEq twice a day. Problem List: 1. Myalgia 2. Leukocytosis Pain Ratin Pain Location: left shoulder Pain Goal: Pain 4 or less Pain Plan: morphine Tomorrow's Labs & Rationales: no labs necessary GODWIN SHEETS MD 05/24/16 1711: Attending MD Review Statement Attending Statement Attending MD Statement: examined this patient, discuss w/resident/PA/MULTIFOLD OPERATOR, agreed w/resident/PA/MULTIFOLD OPERATOR, reviewed EMR data (avail) Attending Assessment/Plan: 85F PMH HTN, rheumatic heart disease s/p AVR and MVR admitted with right shoulder and left ankle pain, nausea, vomiting, malaise, and generalized weakness. Found to have positive blood cultures this morning with gram positive cocci. No recent dental surgery, no trauma, no rash. Denies chest pain, palpitations, SOB, abdominal pain, dysuria. Febrile to 101.3, WBC 18,000, K 3.2 , ESR 43. Mild tenderness to right elbow with mild effusion, shoulder not tender, mild tenderness to left ankle. Imaging shows effusion in right elbow and left ankle without fracture. Now doing well on Ampicillin. TTE and TREVOR negative. Bone scan negative, CT ankle negative, arthrocentesis of shoulder negative for septic arthritis. Patient is doing well and can be discharged home today. Plan - Continue Amoxicillin - Follow ID and orthopedic recommendations - Continue home medications - Continue Lovenox - Continue pain regimen for back pain - Discharge to [facility]
[2016-05-24 08:52] VITALS: BP 122/74
--- NOTE | 2016-05-24 10:12 | Cons- Orthopedic ---
General Information and HPI Consulting Request Date of Consult: 05/24/16 Requested By: GODWIN SHEETS MD History of Present Illness: This is a 85-year-old female with multiple joint pain. She is on antibiotics for a question of fever of unknown origin. We will consult it originally for right shoulder pain. She had her right shoulder aspirated which did not show septic arthritis. She continues to have pain now in her left ankle. We will consult it again for concern of septic arthritis of her left ankle. She states she has chronic pain in her left ankle. Some swelling at times. Worse with ambulation. She had a CT scan of the left ankle which shows an osteochondral defect of her ankle. There appears to be no bony erosion. There is some mild midfoot arthritic changes. She rates her pain as a 6. Allergies/Medications Allergies: Coded Allergies: amoxicillin (From AUGMENTIN) (UNKNOWN 05/15/16) clavulanic acid (From AUGMENTIN) (UNKNOWN 05/15/16) codeine (STOMACH CRAMPS 05/15/16) erythromycin base (STOMACH CRAMPS 05/15/16) hydrocodone (From VICODIN) (STOMACH CRAMPS 05/15/16) zolpidem (From AMBIEN) (HALLUCINATIONS 05/15/16) Home Med List: Amoxicillin 500 MG CAPSULE 1 CAP PO TID bacteremia Aspirin (Ecotrin*) 81 MG TABLET.DR 1 TAB PO DAILY HEART HEALTH (Reported) Atenolol 25 MG TABLET 0.5 TAB PO TID HEART (Reported) Brimonidine Tartrate/Timolol (Combigan Eye Drops) 0.2 %-0.5 % DROPS 1 DROP OP BID EYE (Reported) Donepezil HCl 5 MG TABLET 1 TAB PO QPM DEMENTIA (Reported) Estradiol 0.5 MG TABLET 1 TAB PO Tuesday HORMONE (Reported) Hydrochlorothiazide 25 MG TABLET 1 TAB PO DAILY WATER PILL (Reported) Ibuprofen 800 MG TABLET 1 TAB PO TID PRN pain scale 4-6 Morphine Sulfate 15 MG TABLET 1 TAB PO TIDPRN PRN severe pain 7-10 Multivitamin (Daily Multiple Vitamin) 1 EACH TABLET 1 TAB PO DAILY SUPPLEMENT (Reported) Potassium Chloride 10 MEQ TAB.ER.PRT 1 TAB PO DAILY SUPPLEMENT (Reported) Prednisolone Acetate 1 % DROPS.SUSP 1 GTT OPH QPM EYE (Reported) Simvastatin (Simvastatin*) 20 MG TABLET 1 TAB PO QPM CHOLESTEROL (Reported) Warfarin Sodium 2 MG TABLET 1 TAB PO 1700 BLOOD THINNER (Reported) Past History Medical History Blood Transfusion Hx: No Neurological: HALLUCINATIONS EENT: glaucoma Cardiovascular: hypertension, hyperlipidemia, Rheumatic heart disease Respiratory: NONE Gastrointestinal: NONE Hepatic: NONE Renal: NONE Musculoskeletal: NONE Psychiatric: NONE Endocrine: NONE Blood Disorders: NONE Cancer(s): basal cell carcinoma ACUTE COORDINATOR/Reproductive: NONE Surgical History Pertinent Surgical History: cataract removal, status post mitral valve replacement 2 years prior to admission status post aortic valve replacement 2 years prior to admission Family History Relations & Conditions If Any: Relation not specified for: *No pertinent family history Psychosocial History Where Do You Live? Home Services at Home: None Smoking Status: Former Smoker ETOH Use: occasional use Illicit Drug Use: denies illicit drug use Review of Systems Review of Systems: See chart Exam & Diagnostic Data Vital Signs and I&O Vital Signs Date Time Temp Pulse Resp B/P Pulse O2 O2 Flow FiO2 Ox Delivery Rate 05/24 0930 107 05/24 0852 97.9 107 20 122/74 97 05/23 2335 98.8 108 20 141/72 96 Room Air 05/23 2251 109 142/73 05/23 1800 98.4 109 20 150/90 94 Room Air 05/23 1640 99.2 112 24 162/98 96 Room Air 05/23 1610 110 155/86 05/23 1601 99.6 110 20 155/86 96 05/23 1152 108 128/78 Intake & Output 05/24 1600 05/24 0800 05/24 0000 05/23 1600 05/23 0800 05/23 0000 Intake Total 100 400 700 340 600 Output Total 700 1500 813 348 2550 Balance -600 -1100 200 -260 -500 Intake, IV 100 200 300 100 120 Intake, Oral 200 400 240 480 Number 1 1 2 Bowel Movements Output, 50 Emesis Output, Urine 700 1500 [phone] Physical Exam: On physical exam she has mild amount of edema of the left ankle. Tender over the medial gutter of the left ankle. This is in the region where she has a osteochondral defect. She has 10-40 of active range of motion of the left ankle. There is no warmth no erythema of the left ankle. 5 out of 5 strength of the left ankle. The left lower extremity is neurovascularly intact. Positive sensation to light touch. CT scan was reviewed of the left ankle which shows midfoot arthritis as well as osteochondral defect of medial gutter consistent with degenerative changes of the left ankle. Assessment/Plan Assessment/Plan 1. Left ankle osteochondral defect degenerative changes 2. Left midfoot arthritis -Patient can follow up as an outpatient in our office. Ice to left ankle. Anti -inflammatories if the patient is able to take these. Given the physical findings I do not feel that this is septic arthritis of her left ankle. Consult Acknowledgment - Thank you for your consult request.
[2016-05-24] MEDS ORDERED: CELEBREX100 M1 PO (10:14)
--- NOTE | 2016-05-24 10:40 | Discharge Summary ---
Visit Information Visit Dates Admission Date: 05/15/16 Discharge Date: 05/24/2016 Hospital Course Course Attending Physician: GODWIN SHEETS MD Primary Care Physician: NATE DAWSON,MJ CHAUDHARI Other Care Providers: Dr. Sheth - disc pad knockout worker Consulting Request: 1 Consulting Specialty: Cardiology Consulting Physician: Dr. Carrington Reason for Consult: Evaluation of infective endocartidis Consulting Request: 2 Consulting Specialty: Infectious Disease Consulting Physician: Dr. Collins Reason for Consult: Bacteremia Consulting Request: 3 Consulting Specialty: Orthopedics Consulting Physician: Reason for Consult: Evaluation of arthritis Hospital Course: 85-year-old female with pmh of bioprosthetic aortic & mitral valve replacements (2014) for rheumatic heart disease, paroxysmal atrial fibrillation/flutter on warfarin, HTN, HLD, dementia presented with chief complaint of nausea/vomiting, generalized malaise and multiple joint pain in Rt. elbow, Lt. ankle, and back. She c/o 2 episodes of vomiting (no blood) and loose stool 1 day prior to admission which resulted in generalized weakness. She has no sick contact. She didn't have any trauma prior to the onset of joint symptoms. She denied fever, chills, abdominal pain or difficulty of urination. She denied chest pain, palpitation, syncope, lightheadedness or dizziness. Her most recent dental work was 2 months ago, and she notes that she took an antibiotic for prophylaxis. Vitals: T max 101.3, HR 96, RR 18, BP 102/52, O2 94% on RA, On exam: A O 3, no distress, mildly anxious, neck supple, mucosa dry, no lymphadenopathy. CVS: normal S1/S2, systolic murmur, Lungs: Clear air entry bilaterally present, Abdomen: Soft, NT, ND, Walker's sign negative, no CVA tenderness, bowel sounds present. No obvious skin rashes. Extremities tender on movement of the left ankle, with no erythema or obvious effusion; tender on palpation of the right elbow, with good range of motion and without erythema or obvious swelling; tender over the right AC joint, with slight swelling and with pain on movement, without erythema; no cyanosis, clubbing or edema. No focal neurological deficit. Labs: WBC 17.8, neutrophils 92%, hemoglobin 12.5, potassium 3.2, anion gap 10, CK 23, INR 1.45, UA WBC 1-3, RBC 15-25, positive for leukocyte esterase. Imaging: X-ray shoulder, x-ray lumbar spine, x-ray hip, x-ray elbow, x-ray ankle , x-ray chest Moderate glenohumeral and ybnd-cw-gaeropou AC joint arthritis. 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 No acute fracture or subluxation. Diffuse moderate degenerative changes involving all levels of the lumbar spine. Small right elbow joint effusion without identified fracture. Dedicated radiographs could be obtained if pain persists in 7-10 days. No acute fracture involving the right hip. Unremarkable pelvic radiograph. Cardiomegaly. Left basilar opacity, consider atelectasis, pneumonia or sequela of aspiration. Suspected small left pleural effusion. Patient was admitted to general medicine floor for following problem lists; 1. Beta strep Group B baceremia: Patient had T max of 101.5F on 05/15, and Blood cultures 2 were positive for gram-positive cocci in pairs and chains on 05/15. ID consult was obainted to evaluate possible sources of bacteremia; diffentials include infective endocarditis with prosthetic valves vs. septic arthritis vs. osteomyelitis. She was empirically treated with IV vancomycin pending further workups. Cardiology consult was obtained with TTE (05/17) & TREVOR (05/19) which were negative for infective endocarditis. Orthopedic surgery was consulted, and Rt. shoulder fluoroscopic guided aspiration was done on 05/17 showing 41713 WBC. Gram staine & Culture from aspiration were negative. Later patient became afebrile, and culture sensitivity came back with beta strep Group B, so she was switched to IV ampicillin on 05/18. She was tolerating ampicillin well without any allergic reactions. Further workups with bone scan and Lt. lower ext CT were done to identify possible source of bacteremia which were negative. She will be discharged with po augmentin to finish 14-d course (6 more days). 2. Beta strep Group B UTI: Urine culture was growing same Beta strep Group B as blood cultures. She was treated with IV ampicillin. 3. Multiple joint pains: She has moderate glenohumeral & mild-mod AC joint arthritis with possible rotator cuff compromise. As above, patient had Rt. shoulder arthrocentesis to evaluate septic arthritis, but she doesn't likely to have a septic joint. She also had bone scan on 05/20 to evaluate possible osteomyelitis of lumar spines but the result was without acute abnormality. Lt. lower ext CT on 05/23 showed no evidence of septic arthritis but degenerative changes (Os trigonum syndrome). Per orthopedic surgery, patient can follow up as outpatient. Continue anti-inflammatory agents, ice pack on Lt. ankle, and physical therapy as tolerated. 4. Paroxysmal A.fib/flutter: She was given SC lovenox for anticoagulation during hospitalization due to possible procedures. Her coumadin was resumed on 05/24, and she will be discharged with SC lovenox and coumadin bridge. Her requires po coumadin according to INR (05/21: 1.34). Rate was controlled with atenolol 12.5mg bid. 5. HLD: We continued lipitor 10mg daily. 6. Dementia: We continued her home dose of donepezil 5mg daily. 7. Guiac positive stool with normocytic anemia: Her Hb/Hct remained stable (Hb/ Hct: 11.1/33.3, MCV 86.8 on 05/24). However, she has guiac positive stool with SC lovenox and ibuprofen. PO Ibuprofen was discontinued and it will be changed to celecoxib. With po coumadin, please check CBC with INR, and follow GI as outpatient for workup (last colonoscopy 15 YA). DVT ppx: po coumadin, full code. Allergies: Coded Allergies: clavulanic acid (From AUGMENTIN) (UNKNOWN 05/15/16) codeine (STOMACH CRAMPS 05/15/16) erythromycin base (STOMACH CRAMPS 05/15/16) hydrocodone (From VICODIN) (STOMACH CRAMPS 05/15/16) zolpidem (From AMBIEN) (HALLUCINATIONS 05/15/16) Significant Procedures: 05/15/16 Rt. shoulder x-ray Moderate glenohumeral and psdx-wd-lhgdijbi AC joint arthritis. Cephalad positioning of the humeral head raising concern for rotator cuff compromise. No radiographic evidence of acute fracture. 05/17/16 TTE 1. This was a technically difficult examination. 2. The aortic valve was not well visualized anatomically. THere is an elevated gradient of 30 mmHg across the valve. If clinically indicated, a TREVOR would allow better assessment of aortic valve structure and function. 3. A bioprosthetic mitral valve is present. Thickening of the bioprosthetic valve leaflets is present. On the apical views, there appears to be prolapse or partial eversion of the leaflets present. The possibility of a vegetation cannot be excluded. Minimal to mild mitral insufficiency appears to be present. Left atrial enlargement is present. 4. There is no significant pericardial fluid present. 5. The left ventricular chamber size and systolic function appear normal. Abnormal septal motion is present. The ejection fraction is normal.. Mobile echoes are noted in the LV cavity which likely represent residual chordal structures. 6. Mild enlargement of the right heart chambers is present with moderate tricuspid insufficiency and pulmonary hypertension with an estimated RV systolic pressure of 52 mmHg. 7. A TREVOR is suggested in this patient to better assess the anatomy of the aortic and mitral valves and to better exclude the possibility of vegetative lesions 05/19/16 TREVOR 1. There are no vegetative lesions detected on this examination. 2. A normally functioning bioprosthetic aortic valve is present. Minimal central aortic insufficiency is noted. 3. A normally functioning bioprosthetic mitral valve is present with minimal mitral insufficiency. 4. A very small pericardial effusion is present. 5. The left atrium is enlarged with moderate enlargement of the left atrial appendage. The appendage is hypokinetic and 2-3+ spontaneous contrast is present with no evidence of thrombus. 6. The pulmonary venous anatomy is normal bilaterally with normal doppler profiles. 7. The left ventricular chamber size is normal with mild concentric hypertrophy and a normal ejection fraction. 8. A left pleural effusion is present. 9. Mild enlargement of the right heart chambers is present with mild to moderate tricuspid insufficiency and mild pulmonic insufficiency. 10. A PFO is present with a very small right to left shunt detected by agitated saline contrast injection. 11. Grade II to III atheromatous plaque is present in the thoracic aorta. 05/21/16 Bone Scan No abnormalities strongly suspicious for osteomyelitis in the spine right any other site. Mild nonspecific abnormalities are noted as described above and these are all likely arthritic or traumatic in etiology. None of these abnormalities is strongly suspicious for a recent fracture, active infection, or metastatic disease. 05/23/16 CT lower ext No evidence for septic arthritis. 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 Mild to moderate arthrosis of the midfoot involving the talocuneiform joints and tarsometatarsal joints. 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 (Os trigonum syndrome). Mild edema and/or cellulitis in the soft tissues surrounding the ankle hindfoot and midfoot. Pertinent Lab Results: BLOOD CULTURE REPORT Final 05/18/16-811 GRAM STAIN SUGGESTIVE OF: GRAM POSITIVE COCCI IN CHAINS Called to/Readback by BRENDA by [email or web address] 05/17/16 0815 and at 0818 CULTURE: BETA STREP GROUP B Penicillin and Ampicillin are drugs of choice for beta-hemolytic streptococcal infections. Susceptibility testing of penicillins and other beta-lactams are not routinely performed because non-susceptible isolates have only rarely been reported. Note: If patient is allergic to Penicillin, the laboratory can perform Clindamycin testing upon request. Please call within 5 days of final report. URINE CULTURE Final 05/18/16-900 Greater than 100,000 colonies per ml of: BETA STREP GROUP B Penicillin and Ampicillin are drugs of choice for beta-hemolytic streptococcal infections. Susceptibility testing of penicillins and other beta-lactams are not routinely performed because non-susceptible isolates have only rarely been reported. Disposition Summary Disposition Principal Diagnosis: Beta Strep Group B bacteremia Beta Strep Group B UTI Multiple joint pain likely due to degenerative changes (Rt. AC joint athritis with rotator cuff compromise, Lt. ankle ostechondral defect degenrative changes) Additional Diagnosis: S/P bioprsthetic aortic & mitral valve replacement (2014) Paroxysmal A.fib/flutter on coumadin Dementia HLD Guiac positive stool with normocytic anemia Discharge Disposition: SNF Discharge Instructions General Discharge Information Code Status: Full Code Patient's Diet: Regular/heart healthy diet Patient's Activity: Increase as tolerated Please continue physical therapy on gait & Rt. shoulder Please continue ice pack on joint as needed Follow-Up Instructions/Appts: Please follow up with a primary doctor after discharge within 1 weeks. Please follow up with a GI doctor for anemia workup (last colonoscopy 15 YA) Please follow up with Orthopedic surger for multiple joint arthritis Please continue coumadin according to INR (goal 2-3) for paroxysmal A.fib/ flutter Please follow up with a disc pad knockout worker after discharge within 1-2 weeks. Medications at Discharge Discharge Medications: Continue taking these medications: Hydrochlorothiazide (Hydrochlorothiazide) 25 MG TABLET 1 Tablet ORAL DAILY Qty = 90 Potassium Chloride (Potassium Chloride) 10 MEQ TAB.ER.PRT 1 Tablet ORAL DAILY Qty = 90 Aspirin (Ecotrin*) 81 MG TABLET.DR 1 Tablet ORAL DAILY Warfarin Sodium (Warfarin Sodium) 2 MG TABLET 1 Tablet ORAL 5 PM Qty = 90 Instructions: please dose coumadin to keep your INR between 2-3. PLEASE BRIDGE WITH LOVENOX W/ ATLEAST 5 DAYS OF OVERLAP Simvastatin (Simvastatin*) 20 MG TABLET 1 Tablet ORAL Every night Qty = 90 Prednisolone Acetate (Prednisolone Acetate) 1 % DROPS.SUSP 1 Drop In the eye Every night Qty = 5 Brimonidine Tartrate/Timolol (Combigan Eye Drops) 0.2 %-0.5 % DROPS 1 DROP OPHTHALMIC TWICE DAILY Qty = 5 Multivitamin (Daily Multiple Vitamin) 1 EACH TABLET 1 Tablet ORAL DAILY Atenolol (Atenolol) 25 MG TABLET 0.5 Tablet ORAL THREE TIMES DAILY Qty = 135 Donepezil HCl (Donepezil HCl) 5 MG TABLET 1 Tablet ORAL Every night Qty = 30 Estradiol (Estradiol) 0.5 MG TABLET 1 Tablet ORAL TUESDAY, TUESDAY AND TUESDAY Qty = 36 Start taking the following new medications: Amoxicillin (Amoxicillin) 500 MG CAPSULE 1 Capsule ORAL THREE TIMES DAILY Days = 6 No Refills Enoxaparin Sodium (Lovenox) 60 MG/0.6 ML SYRINGE 50 Milligram Inject into fatty tissue TWICE DAILY Days = 5 Refills = 1 Morphine Sulfate (Morphine Sulfate) 15 MG TABLET 1 Tablet ORAL THREE TIMES A DAY NEEDED as needed for severe pain 7-10 Qty = 15 No Refills Celecoxib (Celebrex) 100 MG CAPSULE 1 Capsule ORAL TWICE DAILY Qty = 14 No Refills Copies To: KORTNEY DAWSON,GODWIN; LILY DAWSON,WESTON Campbell; NATE DAWSON,MJ CHAUDHARI; KANE DAWSON,DANICA MEDINA MD,NOLA Mckeon
[2016-05-24] MEDS ORDERED: AMOXICILLIN500 M2 PO ×2 (13:52→14:48)
[2016-05-24] MEDS ORDERED: LOVENOX60 MG/0.1 SC (13:54)
--- NOTE | 2016-05-24 15:44 | PN- Infect Dx ---
Subjective Subjective: Afebrile. She feels improved and was able to ambulate earlier today. Objective Last 24 Hrs of Vital Signs/I&O Vital Signs Date Time Temp Pulse Resp B/P Pulse O2 O2 Flow FiO2 Ox Delivery Rate 05/24 1011 Room Air 05/24 0930 107 05/24 0852 97.9 107 20 122/74 97 05/23 2335 98.8 108 20 141/72 96 Room Air 05/23 2251 109 142/73 05/23 1800 98.4 109 20 150/90 94 Room Air 05/23 1640 99.2 112 24 162/98 96 Room Air 05/23 1610 110 155/86 05/23 1601 99.6 110 20 155/86 96 Intake & Output 05/24 1600 05/24 0800 05/24 0000 Intake Total 100 400 Output Total 700 1500 Balance -600 -1100 Intake, IV 100 200 Intake, Oral 200 Number 1 Bowel Movements Output, Urine 700 1500 Physical Exam Other Physical Findings: She appears comfortable in no acute distress Extremities decreased swelling of the left ankle; right shoulder persistently decreased range of motion, with no overlying inflammation Results Last 24 Hours of Lab Results: Laboratory Tests 05/24 05/23 0730 1915 Chemistry Sodium (137 - 145 mmol/L) 133 L Potassium (3.5 - 5.1 mmol/L) 4.7 Chloride (98 - 107 mmol/L) 100 Carbon Dioxide (22 - 30 mmol/L) 27 Anion Gap (5 - 16) 6 BUN (7 - 17 mg/dL) 11 Creatinine (0.5 - 1.0 mg/dL) 0.7 Estimated GFR (>60 ml/min) > 60 BUN/Creatinine Ratio (7 - 25 %) 15.7 Hematology CBC w Diff MAN DIFF ORDERED WBC (4.8 - 10.8 /CUMM) 10.7 RBC (4.20 - 5.40 /CUMM) 3.84 L Hgb (12.0 - 16.0 G/DL) 11.1 L Hct (37 - 47 %) 33.3 L MCV (81.0 - 99.0 FL) 86.8 MCH (27.0 - 31.0 PG) 29.0 RDW (11.5 - 14.5 %) 14.0 Plt Count (130 - 400 /CUMM) 431 H MPV (7.4 - 10.4 FL) 7.6 Gran % (42.2 - 75.2 %) 84.6 H Lymphocytes % (20.5 - 51.1 %) 5.4 L Monocytes % (1.7 - 9.3 %) 9.1 Eosinophils % (0 - 5 %) 0.4 Basophils % (0.0 - 2.0 %) 0.5 Absolute Granulocytes (1.4 - 6.5 /CUMM) 9.1 H Segmented Neutrophils (42.2 - 75.2 %) 82 H Band Neutrophils (0.0 - 5.0 %) 3 Absolute Lymphocytes (1.2 - 3.4 /CUMM) 0.6 L Lymphocytes (20.5 - 51.1 %) 6 L Monocytes (1.7 - 9.3 %) 7 Absolute Monocytes (0.10 - 0.60 /CUMM) 1.0 H Eosinophils (0 - 5.0 %) 1 Absolute Eosinophils (0.0 - 0.7 /CUMM) 0 Basophils (0.0 - 2.0 %) 1 Absolute Basophils (0.0 - 0.2 /CUMM) 0.1 Platelet Estimate (ADEQUATE) ADEQUATE Polychromasia 1+ Hypochromic-Microcytic 1+ Anisocytosis 1+ PUBS MCHC (33.0 - 37.0 G/DL) 33.4 Last 24 Hours of Cameron Results: No recent cultures Recent Imaging Studies: CT of the left leg May 23 reveals no evidence for septic arthritis, with 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 The etiology of her polyarticular arthritis is unclear, with no evidence for a septic joint and with recent bone scan negative. Of note her uric acid was mildly elevated on admission, raising the possibly of gout, though there were no crystals seen on the right shoulder aspirate. Suggestion: 1. Rheumatology input at some point 2. Orthopedic follow-up as an outpatient 3. Discontinue Ampicillin and begin Amoxicillin 500 mg po every 8 hours for 6 more days
[2016-05-24 15:51] VITALS: BP 118/62
[2016-05-24 16:20] VITALS: BP 118/62
[2016-05-24 16:37] VITALS: BP 118/62
== END 2016-05-24 18:00 | DRG 872 ==
LOC: ENRESERVDT → ENRESERVTM → ERH 10:54 → ERHI 16:38 → 2NB 16:38 → CANBEDREQ 05-17 09:43 → 2NB 05-24 18:00
PROVIDERS: Emergency Medicine; Internal Medicine Endocrinology, Diabetes & Metabolism; Student in an Organized Health Care Education/Training Program; ADMIT Internal Medicine
PROC: B246ZZ4 Ultrasonography of Right and Left Heart, Transesophageal (ICD-10-PCS; principal; 2016-05-19)
DX: R78.81 Bacteremia (principal); N39.0 Urinary tract infection, site not specified; F03.90 Unspecified dementia, unspecified severity, without behavioral disturbance, psychotic disturbance, mood disturbance, and anxiety; I48.0 Paroxysmal atrial fibrillation; B95.1 Streptococcus, group B, as the cause of diseases classified elsewhere; Z95.4 Presence of other heart-valve replacement; I10 Essential (primary) hypertension; I09.9 Rheumatic heart disease, unspecified; Z85.828 Personal history of other malignant neoplasm of skin; Z79.01 Long term (current) use of anticoagulants; E78.5 Hyperlipidemia, unspecified
CPT/HCPCS: 2NBP; 87075; 36415; 72100; 73030-RT; 73080-RT; 73502-RT; 73610-LT; 77002; 81001; 82436; 87040; 87086; 87147; 87449; 87450; 87804; 87804-59; 93005; 93010; 93306; 93325; 96374; 97110-GO; 97116-GO; 97161-GP; 97530-GO; A9561; J0290; J1644; J1650; J1885; J2270; J3250; J3370; J7060